=== PATIENT | female | born 1945 | race Caucasian/White ===

== ENCOUNTER 2019-09-02 10:44 | Inpatient (IN) ==
[2019-09-02] MEDS ORDERED: SODIUM CHLORIDE 0.9% 500 ML IV SCH (11:15)
[2019-09-02 11:50] LABS: Basophils # (auto) 0.01 K/uL (0-0.2); Basophils % (auto) 0.2 %; Eosinophils # (auto) 0.04 K/uL (0-0.5); Eosinophils % (auto) 0.7 %; Hematocrit (blood only) 38.5 % (37-47); Immature Granulocytes # (auto) 0.04 K/uL (0.00-0.02); Immature Granulocytes % (auto) 0.7 %; Lymphocytes # (auto) 0.49 K/uL (1.2-3.4); Lymphocytes % (auto) 8.8 %; Mean Corpuscular Hemoglobin 32.3 pg (25-34); Mean Corpuscular Hgb Conc 36.4 g/dL (32-36); Mean Corpuscular Volume 88.7 fL (80-100); Mean Platelet Volume 8.5 fL (7.4-10.4); Monocytes # (auto) 0.73 K/uL (0.11-0.59); Monocytes % (auto) 13.1 %; Neutrophils # (auto) 4.28 K/uL (1.4-6.5); Neutrophils % (auto) 76.5 %; Platelet Count 192 K/uL (130-400); RDW Coefficient of Variation 13.5 % (11.5-14.5); RDW Standard Deviation 44.2 fL (36.4-46.3); Red Blood Count 4.34 M/uL (4.2-5.4); White Blood Count 5.59 K/uL (4.8-10.8)
[2019-09-02 12:07] LABS: BUN Creatinine Ratio 11.9 (10-20); Calcium 9.3 mg/dl (8.5-10.1); Creatinine Clr Calc Pharmacy 36.6 ml/min; Est GFR (African American) 58.1; Est GFR (Non-African American) 50.1; Magnesium 2.1 mg/dl (1.8-2.4); Potassium 3.8 mmol/L (3.5-5.1)
[2019-09-02] MEDS: SODIUM CHLORIDE 0.9% 1000ML 1,000 ML IV SCH ×2 (12:12→20:03)
[2019-09-02 12:18] LABS: Albumin Globulin Ratio 0.7 (0.9-2); Bilirubin,Total 0.6 mg/dl (0.2-1); Globulin 4.1 gm/dl (2.5-4.0); Thyroid Stimulating Hormone 2.5 uIu/ml (0.300-4.500); Total Protein 7.1 gm/dl (6.4-8.2)
--- NOTE | 2019-09-02 14:42 | Emergency Department Note ---
Entered by Kadie Barrera acting as a scribe for History of Present Illness General Chief complaint: Nausea Stated complaint: DIZZY,NAUSEA Source: patient History of Present Illness Onset (ago): day(s) 3 Location: abdomen Pain Consistency: + other (persistent) Maximum Pain Intensity: 0 Quality: + other (nausea) Relieved By: + medication (chemotherapy medications) Associated symptoms: + denies other symptoms (vomiting, diarrhea, loss of appetite or fluid intake) and + other (weakness, dizziness, constipation) The patient is a 74 year old female that is presenting to the Emergency Room with complaints of persistent nausea that has worsened over the past three days. The patient reports that she is being treated for thyroid cancer that has metastasized to her liver, lungs, throat, and spine. She states that she started two new chemotherapy medications 1 month ago by her oncologist in [place]. She notes that she takes 6 pills of the Braftovi at night and states that she become s very nauseous after taking them. She notes that the Mektovi does not appear to affect her. She reports that she has been sitting on the couch for the past three days secondary to her nausea, weakness and dizziness. She denies any nausea currently but notes that she was very nauseous this morning. The patient notes that she is eating normally. She denies any vomiting or diarrhea. She states that she is constipated and notes that she believes it is secondary to the Zofran she was prescribed for her nausea. She notes that she has been taking 2 doses of Zofran a day. She states that her last bowel movement was this morning but notes that it was very small. She reports that her last bowel movem ent prior to today was 6 days ago. The patient notes that she had her levothyroxine reduced from 100mcg to 50 mcg in March secondary to elevated blood pressures. She states that her heart rate has been elevated above 100bpm since that time. She reports that her last EKG was 1 month ago prior to starting her new chemotherapy medications as the medications can have cardiac side effects. 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 The patient denies taking any pain medications except for liquid Tylenol. She reports that she is unable to swallow pills secondary to a past tracheotomy. She notes that she was referred to the ED today by her PCP, Dr. Melendez. Home Medications Home Medications Medication Instructions Recorded Confirmed Type aspirin [Aspir-81] 81 mg PO DAILY 09/02/19 09/02/19 History atorvastatin 10 mg PO HS 09/02/19 09/02/19 History binimetinib [Mektovi] 45 mg PO BIDM 09/02/19 09/02/19 History encorafenib [Braftovi] 450 mg PO HS 09/02/19 09/02/19 History levothyroxine 50 mcg PO DAILY 09/02/19 09/02/19 History multivitamin 1 tab PO DAILY 09/02/19 09/02/19 History ondansetron 4 mg PO Q6 PRN 09/02/19 09/02/19 History Allergies Allergy/AdvReac Type Severity Reaction Status Date / Time penicillin G Allergy Unknown . 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 Status post right neck compartment dissection 12/23/2015 revealing recurrent papillary carcinoma of the thyroid 0 of 7 nodes positive Status post radiation therapy treatments stopped on 03/04/2016 with one remaining fraction, received 6400 cGy combined with chemotherapy." On 01/05/16 10:43 Teresa Meier wrote "Thyroid carcinoma in 1991 Status post thyroidectomy followed by radioactive iodine Development of a left neck mass October 2014 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 Status post left neck dissection 12/31/2014 4 of 26 nodes positive 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 Status post right neck compartment dissection 12/23/2015 revealing recurrent papillary carcinoma of the thyroid 0 of 7 nodes positive " Tracheostomy complication (Acute) Family History Other Family history non-contributory Social History Preferred Language: Lao Communication Ability: Effective Identification Technician Required: No Beliefs That Will Affect Care: None marital status: Current Living Situation: Spouse current occupational status: retired Other Information That Helps Us Care for You: No Feels Safe at Home: Yes Safety Concerns: Feels Safe At This Time Smoking Status: Never smoker Hx Alcohol Use: No Hx Substance Use: No Review of Systems See HPI for pertinent positives & negatives. and A total of 10 systems reviewed and were otherwise negative Physical Exam Vital Signs Vital Signs - 24 hr 09/02/19 10:48 09/02/19 11:29 09/02/19 11:31 Temperature 36.8 C Temperature Source Oral Pulse Rate - Lying 99 H Pulse Rate - Sitting 100 H Pulse Rate - Standing 109 H Pulse Rate 108 H 109 H Pulse Rate from SpO2 Sensor 102 H Respiratory Rate 17 22 Respiratory Effort / Characteristics Non-Labored Respiratory Depth Normal Blood Pressure - Lying 130/71 Blood Pressure - Sitting 110/65 Blood Pressure- Standing 119/77 Blood Pressure 118/70 119/77 Blood Pressure Mean 86 86 Blood Pressure Position Sitting Pulse Oximetry 95 98 Oxygen Delivery Method Room Air Sepsis Recent Fever Within 48 Hours No Sepsis New/Unexplained Change in Mental Status No Sepsis Action Taken by Nursing No Action Required 09/02/19 12:00 09/02/19 12:30 09/02/19 13:00 Temperature Temperature Source Pulse Rate - Lying Pulse Rate - Sitting Pulse Rate - Standing Pulse Rate 98 H 93 H 100 H Pulse Rate from SpO2 Sensor 95 H 93 H 100 H Respiratory Rate 22 23 16 Respiratory Effort / Characteristics Respiratory Depth Blood Pressure - Lying Blood Pressure - Sitting Blood Pressure- Standing Blood Pressure 108/56 L 114/63 109/75 Blood Pressure Mean 84 82 85 Blood Pressure Position Pulse Oximetry 98 97 98 Oxygen Delivery Method Sepsis Recent Fever Within 48 Hours Sepsis New/Unexplained Change in Mental Status Sepsis Action Taken by Nursing 09/02/19 13:30 09/02/19 14:00 Temperature Temperature Source Pulse Rate - Lying Pulse Rate - Sitting Pulse Rate - Standing Pulse Rate 95 H 92 H Pulse Rate from SpO2 Sensor 93 H 93 H Respiratory Rate 24 21 Respiratory Effort / Characteristics Respiratory Depth Blood Pressure - Lying Blood Pressure - Sitting Blood Pressure- Standing Blood Pressure 124/65 Blood Pressure Mean 82 Blood Pressure Position Pulse Oximetry 97 97 Oxygen Delivery Method Sepsis Recent Fever Within 48 Hours Sepsis New/Unexplained Change in Mental Status Sepsis Action Taken by Nursing Vital signs reviewed. General: Chronically ill-appearing female, in no significant distress. HEENT: No scleral icterus, PERRLA, neck supple. Atraumatic. DMM. Cardiovascular: Slightly tachycardic rate and regular rhythm, no extra sounds. Pulmonary: Clear to auscultation bilaterally, normal work of breathing. Abdomen: Soft, nontender, nondistended, positive bowel sounds. Musculoskeletal: Atraumatic, no peripheral edema. Neurologic: Patient awake alert and oriented x 3, full strength in all 4 extremities. Cranial nerves 2 through 12 grossly intact. Skin: Warm, dry, no rash Course Course 1104:The patient was evaluated in room C09. A complete history and physical examination was performed. 1400: Upon reevaluation, the patient is resting comfortably. I discussed laboratory and radiographic results with the patient. She verbalized agreement of the treatment plan. The patient will be evaluated for further management and care. 1421: I discussed the patient's case with Dr. Mason, [facility], who will evaluate the patient for further management and care. Administered Medications Aspirin (Ecotrin Ectab) 81 mg PO DAILY BALTAZAR Stop: 10/03/19 08:59 Last Admin: 09/03/19 09:03 Dose: 81 mg Documented by: [id number] Atorvastatin Calcium (Lipitor) 10 mg PO HS BALTAZAR Stop: 10/02/19 20:59 Last Admin: 09/02/19 22:01 Dose: 10 mg Documented by: [id number] Enoxaparin Sodium (Lovenox) 40 mg SQ Q24H BALTAZAR Stop: 10/02/19 20:59 Last Admin: 09/02/19 21:57 Dose: 40 mg Documented by: [id number] Sodium Chloride (Nss 1000ml) 1,000 mls @ 80 mls/hr IV .[id number] BALTAZAR Stop: 10/02/19 19:14 Last Admin: 09/03/19 09:02 Dose: 80 mls/hr Documented by: [id number] Infusion: 09/03/19 08:33 Dose: 80 mls/hr Documented by: [id number] Admin: 09/02/19 20:03 Dose: 80 mls/hr Documented by: [id number] Famotidine 20 mg/ Syringe 5 mls @ 2.5 mls/min IV BID BALTAZAR Stop: 10/02/19 20:59 Last Admin: 09/03/19 09:02 Dose: 2.5 mls/min Documented by: [id number] Admin: 09/02/19 21:26 Dose: 2.5 mls/min Documented by: [id number] Levothyroxine Sodium (Synthroid) 50 mcg PO DAILY BALTAZAR Stop: 10/03/19 08:59 Last Admin: 09/03/19 09:03 Dose: 50 mcg Documented by: [id number] Multivitamins (Multivitamin Tab) 1 tab PO DAILY BALTAZAR Stop: 10/03/19 08:59 Last Admin: 09/03/19 09:03 Dose: 1 tab Documented by: [id number] Discontinued Medications Sodium Chloride (Nss 1000ml) 1,000 mls @ 125 mls/hr IV .Q8H BALTAZAR Stop: 10/02/19 11:14 Last Admin: 09/03/19 09:17 Dose: Not Given Documented by: [id number] Infusion: 09/03/19 09:17 Dose: 0 mls/hr Documented by: [id number] Infusion: 09/02/19 16:29 Dose: 0 mls/hr Documented by: [id number] Admin: 09/02/19 12:12 Dose: 125 mls/hr Documented by: [id number] Sodium Chloride (Nss) 500 mls @ 999 mls/hr IV .Q31M BALTAZAR Stop: 09/02/19 11:45 Last Infusion: 09/02/19 12:12 Dose: 0 mls/hr Documented by: [id number] Admin: 09/02/19 11:44 Dose: 999 mls/hr Documented by: [id number] Menthol (Nice) 1 lali BUCCAL NOW STA Stop: 09/02/19 22:59 Last Admin: 09/02/19 23:48 Dose: 1 lali Documented by: [id number] Menthol (Nice) Confirm Administered Dose 24 lali BUCCAL .STK-MED ONE Stop: 09/02/19 23:01 Last Admin: 09/02/19 23:48 Dose: 24 lali Documented by: [id number] Trimethoprim/Sulfamethoxazole (Septra Ds 800/160mg Tab) 1 tab PO Q12 BALTAZAR Stop: 09/08/19 08:59 Last Admin: 09/03/19 09:02 Dose: 1 tab Documented by: [id number] Medical Decision Making Differential Diagnosis Differential Diagnosis includes but is not limited to dehydration, stroke, anemia, hypoglycemia, hyponatremia, hypernatremia, urinary tract infection, pneumonia, bronchitis, sepsis, gastroenteritis, additional abdominal pathology, metabolic abnormalities and infections. Medical Records Attestation: I reviewed the patient's medical records. Home Medications Current Medication List: was personally reviewed by me Laboratory Data Attestation: I reviewed the patient's lab results. Result diagrams: 09/03/19 07:35 09/03/19 07:35 Lab Results 09/02/19 09/02/19 09/02/19 Range/Units 11:38 11:38 13:42 WBC 5.59 (4.8-10.8) K/uL RBC 4.34 (4.2-5.4) M/uL Hgb 14.0 (12.0-16.0) g/dL Hct 38.5 (37-47) % MCV 88.7 (80-100) fL MCH 32.3 (25-34) pg MCHC 36.4 H (32-36) g/dL RDW Std Deviation 44.2 (36.4-46.3) fL RDW Coeff of Jeison 13.5 (11.5-14.5) % Plt Count 192 (130-400) K/uL MPV 8.5 (7.4-10.4) fL Immature Gran % (Auto) 0.7 % Neut % (Auto) 76.5 % Lymph % (Auto) 8.8 % [place] % (Auto) 13.1 % Eos % (Auto) 0.7 % Baso % (Auto) 0.2 % Immature Gran # (Auto) 0.04 H (0.00-0.02) K/uL Neut # (Auto) 4.28 (1.4-6.5) K/uL Lymph # (Auto) 0.49 L (1.2-3.4) K/uL [place] # (Auto) 0.73 H (0.11-0.59) K/uL Eos # (Auto) 0.04 (0-0.5) K/uL Baso # (Auto) 0.01 (0-0.2) K/uL Sodium 125 L (136-145) mmol/L Potassium 3.8 (3.5-5.1) mmol/L Chloride 88 L (98-107) mmol/L Carbon Dioxide 32 (21-32) mmol/L Anion Gap 5.0 (3-11) BUN 13 (7-18) mg/dl Creatinine 1.10 (0.6-1.2) mg/dl Est Cr Clr Drug Dosing 36.6 ml/min Est GFR ( Amer) 58.1 Est GFR (Non-Af Amer) 50.1 BUN/Creatinine Ratio 11.9 (10-20) Glucose 99 (70-99) mg/dl Calcium 9.3 (8.5-10.1) mg/dl Magnesium 2.1 (1.8-2.4) mg/dl Total Bilirubin 0.6 (0.2-1) mg/dl AST 36 (15-37) U/L ALT 23 (12-78) U/L Alkaline Phosphatase 76 (45-117) U/L Total Protein 7.1 (6.4-8.2) gm/dl Albumin 3.0 L (3.4-5.0) gm/dl Globulin 4.1 H (2.5-4.0) gm/dl Albumin/Globulin Ratio 0.7 L (0.9-2) Lipase 149 (73-393) U/L TSH 2.500 (0.300-4.500) uIu/ml Urine Color Yellow Urine Appearance Clear (Clear) Urine pH 7.5 (4.5-7.5) Ur Specific [place] 1.011 (1.000-1.030) Urine Protein Negative (Negative) Urine Glucose (UA) Negative (Negative) Urine Ketones Negative (Negative) Urine Blood Negative (Negative) Urine Nitrite Negative (Negative) Urine Bilirubin Negative (Negative) Urine Urobilinogen Negative (Negative) Ur Leukocyte Esterase Trace H (Negative) Urine WBC (Auto) 1-5 (0-5) /hpf Urine RBC (Auto) 0-4 (0-4) /hpf U Hyaline Cast (Auto) 0 (0-5) /lpf U Epithel Cells (Auto) 10-20 H (0-5) /lpf Urine Bacteria (Auto) Negative (Negative) Blood Pressure Blood Pressure Findings: Normal blood pressure MDM Narrative This patient was evaluated and appeared to be in no significant distress. IV a ccess was obtained and laboratory work was drawn. Patient was hydrated with normal saline solution. She is placed on the hypoid gear generator and found to be in a normal sinus rhythm. Patient was found to be hyponatremic with a sodium of 125. TSH is 2.5. UA is negative. Patient's previous sodium levels have been greater than 135 per outpatient medical records. Given the patient's metastatic cancer and need for oral chemotherapy, it is felt to be prudent to keep the patient for IV hydration and further management. Case was discussed with the hospitalist service for further management. Patient is expressed understanding and agrees. Impression & Plan Hyponatremia, Nausea, Primary cancer of thyroid with metastasis to other site Discharge Plan Visit Data *Final* Discharge Date/Time: 09/02/19 18:47 Chief Complaint: Nausea Stated Complaint: DIZZY,NAUSEA ED Provider: Arcelia Guadalupe Discharge Problem: Hyponatremia, Nausea, Primary cancer of thyroid with metastasis to other site Patient Disposition: Admitted As Inpatient Discharge Instructions Interventions: ED Discharge Assessment Last Done: 09/02/19 18:47 The scribe's documentation has been prepared under my direction and personally reviewed by me in its entirety. I confirm that the note above accurately reflects all work, treatment, procedures, and medical decision making performed by me.
[2019-09-02 15:18] LABS: Appearance Urine Clear (Clear); Bacteria Urine Automated Negative (Negative); Bilirubin Urine Negative (Negative); Blood Urine Negative (Negative); Cast Urine Automated 0 /lpf (0-5); Color Urine Yellow; Glucose Urine UA Negative (Negative); Ketones Urine Negative (Negative); Leukocyte Esterase Urine Trace (Negative); Nitrite Urine Negative (Negative); Protein Urine Negative (Negative); RBC Urine Automated 0-4 /hpf (0-4); Specific Gravity Urine 1.011 (1.000-1.030); Urobilinogen Urine Negative (Negative); pH Urine 7.5 (4.5-7.5)
--- NOTE | 2019-09-02 17:27 | History & Physical Report ---
Date of Service September 02, 2019 Assessment & Plan (1) Hyponatremia: Admits to [facility] for observation. Vital signs every 4 hours Monitor electrolytes IV fluid hydration with NSS 80 cc/h Free fluid restriction to 1200 cc/day Compazine, Phenergan, Zofran IV for nausea. If no improvement contact Dr. Abreu at Present on Admission?: Yes (2) Nausea: As the above is going on Present on Admission?: Yes (3) Primary cancer of thyroid with metastasis to other site: Continue home medicine Binimetinib, encorafenib Present on Admission?: Yes History of Present Illness Chief Complaint: nausea and hyponatremia Primary Care Provider: Janes Melendez MD Patient is a 74 years old female with past medical history of metastatic recurrent anaplastic thyroid cancer, on chemotherapy who who presented with severe nausea. Patient said her symptoms are ongoing since she started chemotherapy in July. Despite of being on Zofran she is not improving. Patient says she has cancer since 1991 and she was in remission for a long. In 2005 patient said tumor came back with a full force. She has her physical medicine specialist oncologist Dr. Oro Her silvia at [facility]. Patient denies of fever, chills, chest pain, shortness of breath, abdominal pain, frequency, urgency. Her labs are reviewed: WBC is 5.59, hemoglobin 14, hematocrit 38.5, platelets 192, sodium 125, potassium 3.8, chloride 88, BUN 13, creatinine 1.1 and GFR 50.1, magnesium 2.1, albumin 3, TSH 2.5 urine all clear with trace leukocyte esterase and presence of 10-20 epithelial cells which was not a clean- catch. CT abdomen and pelvis pending. Decision was made to admit patient for observation at [facility]. Allergies Allergy/AdvReac Type Severity Reaction Status Date / Time penicillin G Allergy Unknown . Verified 09/02/19 11:58 Home Medications Home Medications Medication Instructions Recorded Confirmed Type aspirin [Aspir-81] 81 mg PO DAILY 09/02/19 09/02/19 History atorvastatin 10 mg PO HS 09/02/19 09/02/19 History binimetinib [Mektovi] 45 mg PO BIDM 09/02/19 09/02/19 History encorafenib [Braftovi] 450 mg PO HS 09/02/19 09/02/19 History levothyroxine 50 mcg PO DAILY 09/02/19 09/02/19 History multivitamin 1 tab PO DAILY 09/02/19 09/02/19 History ondansetron 4 mg PO Q6 PRN 09/02/19 09/02/19 History Past Med/Surg History Medical History Anaplastic carcinoma of thyroid Encounter for attention to tracheostomy (Acute) Pulmonary emboli (Resolved) Recurrent thyroid cancer (Acute) "Thyroid carcinoma in 1991 Status post thyroidectomy followed by radioactive iodine Development of a left neck mass October 2014 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 Status post left neck dissection 12/31/2014 4 of 26 nodes positive 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 Status post right neck compartment dissection 12/23/2015 revealing recurrent papillary carcinoma of the thyroid 0 of 7 nodes positive Status post radiation therapy treatments stopped on 03/04/2016 with one remaining fraction, received 6400 cGy combined with chemotherapy." On 01/05/16 10:43 Teresa Meier wrote "Thyroid carcinoma in 1991 Status post thyroidectomy followed by radioactive iodine Development of a left neck mass October 2014 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 Status post left neck dissection 12/31/2014 4 of 26 nodes positive 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 Status post right neck compartment dissection 12/23/2015 revealing recurrent papillary carcinoma of the thyroid 0 of 7 nodes positive " Tracheostomy complication (Acute) Family History Other Family history non-contributory Social History Preferred Language: Turkmen Communication Ability: Effective 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 Beliefs That Will Affect Care: None marital status: Current Living Situation: Spouse current occupational status: retired Other Information That Helps Us Care for You: No Feels Safe at Home: Yes Safety Concerns: Feels Safe At This Time Smoking Status: Never smoker Hx Alcohol Use: No Hx Substance Use: No Review of Systems Review of Systems: All systems reviewed & are unremarkable except as noted in HPI & below Physical Exam Constitutional: WD/WN, vitals as above well developed Eyes: PERRL, conjunctivae normal, anicteric sclerae ENMT: external ear and nose normal, oropharynx normal Neck: trachea midline, no thyromegaly Respiratory: normal respiratory effort, lungs clear to auscultation Cardiovascular: RRR, no murmur, no edema Gastrointestinal (Abdomen): normal bowel sounds, soft, nontender, no hepatosplenomegaly Musculoskeletal: no cyanosis or clubbing, extremities motor strength 5/5 Skin: no rashes, warm and dry Neurologic: patellar DTR's 2+ bilat, sensation intact Psychiatric: A+Ox3, euthymic affect Lymphatic: no cervical or axillary lymphadenopathy Results & Data Vital Signs (Past 12 Hours) Vital Signs Temp Pulse Resp BP Pulse Ox 09/02/19 17:18 97 H 18 121/72 97 09/02/19 16:30 95 H 24 96 09/02/19 15:17 91 H 24 120/71 97 09/02/19 15:00 92 H 24 120/71 95 09/02/19 14:30 98 H 21 98 09/02/19 14:00 92 H 21 97 09/02/19 13:30 95 H 24 124/65 97 09/02/19 13:00 100 H 16 109/75 98 09/02/19 12:30 93 H 23 114/63 97 09/02/19 12:00 98 H 22 108/56 L 98 09/02/19 11:31 109 H 22 119/77 98 09/02/19 10:48 36.8 C 108 H 17 118/70 95 Code Status & VTE Plan Code Status Full code VTE Prophylaxis Plan VTE Prophylaxis will be ordered: Yes PG Care Time/CCT Total # of Minutes Spent Total Time Spent with Patient: Total time spent is greater than 50% in coordination of care (as documented) at patient's floor/unit and/or counseling patient:
[2019-09-02] MEDS ORDERED: ACETAMINOPHEN 325 MG TAB PO PRN (19:15)
[2019-09-02] MEDS ORDERED: ALUMINUM/MAGNESIUM SUSP 30 ML UDC PO PRN (19:15)
[2019-09-02] MEDS ORDERED: MoRPHine SULFATE 2 MG/ML CARP IV PRN (19:15)
[2019-09-02] MEDS ORDERED: MAGNESIUM HYDROXIDE SUSP 30 ML UDC PO PRN (19:15)
[2019-09-02] MEDS ORDERED: POLYETHYLENE (MIRALAX) 17 GM PACK PO PRN (19:15)
[2019-09-02] MEDS ORDERED: PROCHLORPERAZINE 10 MG in SYRINGE 8 ML IV PRN (19:15)
[2019-09-02] MEDS ORDERED: PROMETHAZINE HCL 25 MG in SODIUM CHLORIDE 0.9% 50 ML IV PRN (19:15)
[2019-09-02] MEDS ORDERED: ONDANSETRON 4 MG OD TAB PO PRN (19:41)
[2019-09-02] MEDS ORDERED: ENCORAFENIB 450 MG PO SCH (21:00)
[2019-09-02] MEDS: FAMOTIDINE 20 MG in SYRINGE 3 ML IV SCH (21:26)
[2019-09-02] MEDS: ENOXAPARIN INJ 40 MG/0.4 ML SYR SQ SCH (21:57)
[2019-09-02] MEDS: ATORVASTATIN 10 MG TAB PO SCH (22:01)
[2019-09-02] MEDS ORDERED: COUGH DROP (SUGAR FREE) LOZ 24 LOZ/1 BOX BUCCAL STA (22:58)
[2019-09-02] MEDS ORDERED: COUGH DROP (SUGAR FREE) LOZ 24 LOZ/1 BOX BUCCAL ONE (23:00)
--- NOTE | 2019-09-03 07:14 | CT Scan Report ---
CT abd pelvis wo con CLINICAL HISTORY: 74 years-old Female presenting with nausea, abdominal pain, dry heaving. TECHNIQUE: Multidetector CT of the abdomen and pelvis was performed without the use of intravenous co ntrast. IV contrast: None. One or more dose lowering techniques were used consistent with the princip les of ALA (as low as reasonably achievable), including automatic exposure control, mA or kV adjust ment to individual patient size, and/or use of iterative reconstruction. COMPARISON: PET/CT from 02/08/2016. CT DOSE (mGy.cm): The estimated cumulative dose is 275.53 mGy.cm. FINDINGS: [place] Compounder topogram: Unremarkable. Lung bases: Normal heart size. No pericardial or pleural effusion. Minimal dependent changes likely a telectasis. Liver: Normal morphology. Borderline hepatic steatosis. Biliary: No gross biliary ductal dilatation allowing for noncontrast technique. Gallbladder contains gallstones. Pancreas: Normal noncontrast appearance. Spleen: Normal noncontrast appearance. Splenule noted. Adrenal glands: Normal noncontrast appearance. Kidneys and ureters: Normal noncontrast appearance. No nephrolithiasis. No hydronephrosis. Normal ure ters. Bladder: Normal noncontrast appearance. Pelvic organs: Normal noncontrast appearance. Bowel: Limited diverticulosis at the proximal sigmoid colon without wall thickening or pericolonic in flammatory change. The appendix is normal. No bowel obstruction. Peritoneal cavity: No free fluid or intraperitoneal gas. Lymph nodes: No gross lymphadenopathy allowing for noncontrast technique. Vasculature: Atherosclerosis of the normal caliber abdominal aorta. Abdominal wall: Foci of gas in the subcutaneous tissue of the anterior abdominal wall likely relates to medication administration. Musculoskeletal: Degenerative changes of the left hip and lumbar spine. IMPRESSION: 1. Allowing for noncontrast technique, no acute intra-abdominal pathology. 2. Cholelithiasis. No evidence of cholecystitis. 3. Limited diverticulosis coli. No evidence of diverticulitis. 4. Borderline hepatic steatosis. Electronically signed by: Barrett Hess M.D. 09/03/2019 7:13 AM
[2019-09-03] MEDS ORDERED: BINIMETINIB 45 MG PO SCH (08:00)
[2019-09-03 08:04] LABS: Basophils # (auto) 0.04 K/uL (0-0.2); Basophils % (auto) 1.6 %; Eosinophils # (auto) 0.02 K/uL (0-0.5); Eosinophils % (auto) 0.8 %; Hematocrit (blood only) 32.4 % (37-47); Hemoglobin 11.6 g/dL (12.0-16.0); Immature Granulocytes # (auto) 0.01 K/uL (0.00-0.02); Immature Granulocytes % (auto) 0.4 %; Lymphocytes # (auto) 0.67 K/uL (1.2-3.4); Lymphocytes % (auto) 27.1 %; Mean Corpuscular Hgb Conc 35.8 g/dL (32-36); Mean Corpuscular Volume 89.5 fL (80-100); Mean Platelet Volume 8.4 fL (7.4-10.4); Monocytes # (auto) 0.32 K/uL (0.11-0.59); Neutrophils # (auto) 1.41 K/uL (1.4-6.5); Neutrophils % (auto) 57.1 %; Platelet Count 172 K/uL (130-400); RDW Coefficient of Variation 13.5 % (11.5-14.5); RDW Standard Deviation 44.5 fL (36.4-46.3); Red Blood Count 3.62 M/uL (4.2-5.4); White Blood Count 2.47 K/uL (4.8-10.8)
[2019-09-03 08:44] LABS: Albumin Level 2.3 gm/dl (3.4-5.0); Calcium 8.2 mg/dl (8.5-10.1); Creatinine Clr Calc Pharmacy 43.2 ml/min; Est GFR (African American) 71.2; Est GFR (Non-African American) 61.4; Potassium 3.9 mmol/L (3.5-5.1)
[2019-09-03 08:49] LABS: Albumin Globulin Ratio 0.7 (0.9-2); Bilirubin,Total 0.4 mg/dl (0.2-1); Globulin 3.1 gm/dl (2.5-4.0); Total Protein 5.4 gm/dl (6.4-8.2)
[2019-09-03] MEDS ORDERED: SULFAMETHOXAZOLE/TRIMETHOPRIM DS 800/160MG TAB PO SCH (09:00)
[2019-09-03] MEDS: SODIUM CHLORIDE 0.9% 1000ML 1,000 ML IV SCH ×3 (09:02→20:43)
[2019-09-03] MEDS: FAMOTIDINE 20 MG in SYRINGE 3 ML IV SCH ×2 (09:02→20:41)
[2019-09-03] MEDS: LEVOTHYROXINE SODIUM 50 MCG TABLET PO SCH (09:03)
[2019-09-03] MEDS: MULTIVITAMIN TAB PO SCH (09:03)
[2019-09-03] MEDS: ASPIRIN 81 MG ECTAB PO SCH (09:03)
--- NOTE | 2019-09-03 12:52 | Hospitalist Progress Note ---
Date of Service September 03, 2019 Assessment & Plan (1) Hyponatremia: Asymptomatic and improving Repeat bmp am Continue IV fluid hydration with NSS 80 cc/h Continue Free fluid restriction to 1200 cc/day Nausea under better control Compazine, Phenergan, Zofran IV for nausea. Patient sees Dr. 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 Wood's nausea is much improved today. She continues to have some constipation which is felt to be a side effect of the Zofran. She has been quite nauseas since starting a new chemotherapy regimen. ROS Constitutional: no chills, aches, sweats or fever Respiratory: no sob,cough, sputum, or wheezing Cardiac: no chest pain, palpitations, edema, orthopnea or lightheadedness GI: no abdominal pain, nausea, vomiting, diarrhea : no dysuria or hesitancy Extremities: no joint pain or weakness Skin: no rash All other systems reviewed and negative Physical Exam Physical Exam: General: no distress Eyes: normal inspection, PERLL Respiratory: chest non tender, clear to auscultation, normal breath sounds, no respiratory distress, no accessory muscle use Cardiac: regular rate and rhythm, no rub or gallop, no murmur, no edema, no jvd GI/: active bowel sounds, no abd pain or tenderness, soft, non distended Extremities: normal range of motion, normal strength, non tender Neuro/Psych: alert and oriented x 3, normal mood and affect Skin: normal color, dry Results & Data Vital Signs (Past 12 Hours) Vital Signs Temp Pulse Resp BP Pulse Ox 09/03/19 07:27 37.4 C 86 18 126/72 95 PG Care Time/CCT Total # of Minutes Spent Total Time Spent with Patient: Total time spent is greater than 50% in coordination of care (as documented) at patient's floor/unit and/or counseling patient:
[2019-09-03] MEDS: ENOXAPARIN INJ 40 MG/0.4 ML SYR SQ SCH (20:42)
[2019-09-03] MEDS: ATORVASTATIN 10 MG TAB PO SCH (20:42)
[2019-09-04 06:14] LABS: Basophils # (auto) 0.06 K/uL (0-0.2); Basophils % (auto) 1.7 %; Eosinophils # (auto) 0.07 K/uL (0-0.5); Hematocrit (blood only) 32.8 % (37-47); Hemoglobin 11.6 g/dL (12.0-16.0); Immature Granulocytes # (auto) 0.01 K/uL (0.00-0.02); Immature Granulocytes % (auto) 0.3 %; Lymphocytes # (auto) 1.29 K/uL (1.2-3.4); Lymphocytes % (auto) 36.1 %; Mean Corpuscular Hemoglobin 31.9 pg (25-34); Mean Corpuscular Hgb Conc 35.4 g/dL (32-36); Mean Corpuscular Volume 90.1 fL (80-100); Mean Platelet Volume 8.4 fL (7.4-10.4); Monocytes # (auto) 0.48 K/uL (0.11-0.59); Monocytes % (auto) 13.4 %; Neutrophils # (auto) 1.66 K/uL (1.4-6.5); Neutrophils % (auto) 46.5 %; Platelet Count 174 K/uL (130-400); RDW Coefficient of Variation 13.8 % (11.5-14.5); RDW Standard Deviation 45.9 fL (36.4-46.3); Red Blood Count 3.64 M/uL (4.2-5.4); White Blood Count 3.57 K/uL (4.8-10.8)
[2019-09-04 06:44] LABS: Albumin Level 2.4 gm/dl (3.4-5.0); BUN Creatinine Ratio 3.7 (10-20); Calcium 8.2 mg/dl (8.5-10.1); Creatinine Clr Calc Pharmacy 38.3 ml/min; Est GFR (African American) 61.4; Potassium 3.9 mmol/L (3.5-5.1)
[2019-09-04 06:48] LABS: Albumin Globulin Ratio 0.8 (0.9-2); Bilirubin,Total 0.4 mg/dl (0.2-1); Globulin 3.2 gm/dl (2.5-4.0); Total Protein 5.6 gm/dl (6.4-8.2)
[2019-09-04] MEDS: ASPIRIN 81 MG ECTAB PO SCH (08:21)
[2019-09-04] MEDS: LEVOTHYROXINE SODIUM 50 MCG TABLET PO SCH (08:22)
[2019-09-04] MEDS: MULTIVITAMIN TAB PO SCH (08:22)
[2019-09-04] MEDS ORDERED: Nursing to Pharmacy Communication ONE (08:26)
[2019-09-04] MEDS: SODIUM CHLORIDE 0.9% 1000ML 1,000 ML IV SCH (08:26)
[2019-09-04] MEDS: FAMOTIDINE 20 MG in SYRINGE 3 ML IV SCH (08:26)
[2019-09-04] MEDS ORDERED: DOCUSATE SODIUM/SENNA 50/8.6MG TAB PO SCH (09:00)
[2019-09-04] MEDS ORDERED: POLYETHYLENE (MIRALAX) 17 GM PACK PO STA (09:11)
--- NOTE | 2019-09-04 13:01 | Discharge Summary ---
Date of Service September 04, 2019 Admission HPI Per Admitting Provider Patient is a 74 years old female with past medical history of metastatic recurrent anaplastic thyroid cancer, on chemotherapy who who presented with severe nausea. Patient said her symptoms are ongoing since she started chemotherapy in July. Despite of being on Zofran she is not improving. Patient says she has cancer since 1991 and she was in remission for a long. In 2005 patient said tumor came back with a full force. She has her family medicine physician assistant oncologist Dr. Oro Her shock at [facility]. Patient denies of fever, chills, chest pain, shortness of breath, abdominal pain, frequency, urgency. Her labs are reviewed: WBC is 5.59, hemoglobin 14, hematocrit 38.5, platelets 192, sodium 125, potassium 3.8, chloride 88, BUN 13, creatinine 1.1 and GFR 50.1, magnesium 2.1, albumin 3, TSH 2.5 urine all clear with trace leukocyte esterase and presence of 10-20 epithelial cells which was not a clean- catch. CT abdomen and pelvis pending. Decision was made to admit patient for observation at [facility]. Principal Diagnosis Hyponatremia Discharge Exam Constitutional WD/WN, vitals as above Respiratory normal respiratory effort, lungs clear to auscultation Cardiovascular RRR, no murmur, no edema Gastrointestinal (Abdomen) Inspection/Auscultation: abdomen normal to inspection, + abdomen distended (mild) and normal bowel sounds Percussion/Palpation: + abdomen tender Musculoskeletal no cyanosis or clubbing, extremities motor strength 5/5 Skin no rashes, warm and dry Neurologic moves all extremities and awake Psychiatric A+Ox3, euthymic affect Discharge Data Allergies Allergy/AdvReac Type Severity Reaction Status Date / Time penicillin G Allergy Unknown . Verified 09/02/19 11:58 Consultations 09/02/19 14:21 ED Decision to Admit Stat Ordered Studies 09/02/19 21:13 CT abd pelvis wo con Urgent Hospital Course (1) Hyponatremia: Asymptomatic and improving - Na 132 Provided IV fluid hydration with NSS 80 cc/h Free fluid restriction 1200 cc/day while inpatient Nausea under better control Compazine, Phenergan, Zofran IV for nausea. Patient sees Dr. 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: Continue home medicine Binimetinib, encorafenib Has history of thyroidectomy - continue levothyroxine, TSH 2.5 (4) Constipation: PRN Miralax, bisacodyl suppository, daily senakot (5) DVT prophylaxis: Enoxaparin while inpatient Total Time Total Time Spent Total Time Spent (In Minutes): greater than 30 minutes Discharge Plan Discharge Items Patient Disposition: Home - Self-Care Reason For Visit: NAUSEA Discharge Diagnosis: Hyponatremia Activity: Resume your previous activity Non-emergency contact: Primary Care Provider Call non-emergency contact if: you have any medication questions Follow-up/Referrals: Janes Melendez MD [Primary Care Provider] - Diet: Regular Ambulatory Orders: Basic Metabolic Panel (Routine) Timeframe: [id number] Location: Determined by Patient Ordered By: Mandy Barros Attending Provider Instructions: Please see your primary care provider in about a week (1) Hyponatremia: Please have your lab work drawn on Monday. Your primary care provider will receive results. (2) Nausea: Continue Zofran and famotidine (Pepcid) as needed. 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 Pending Studies at Discharge: No Stand-Alone Forms: [facility] [employer], Smoking Cessation Medications and DC Order Prescriptions: New sennosides-docusate sodium [Senokot-S] 8.6-50 mg Tablet 1 tab PO QAM Qty: 30 RF: 0 Continued multivitamin Tablet 1 tab PO DAILY RF: 0 atorvastatin 10 mg tablet 10 mg PO HS RF: 0 aspirin [Aspir-81] 81 mg Tablet,Delayed Release (Dr/Ec) 81 mg PO DAILY RF: 0 levothyroxine 100 mcg tablet 50 mcg PO DAILY RF: 0 ondansetron 4 mg tablet,disintegrating 4 mg PO Q6 PRN (Reason: Nausea And Vomiting) RF: 0 Braftovi 75 mg capsule 450 mg PO HS RF: 0 Mektovi 15 mg tablet 45 mg PO BIDM RF: 0 Discharge Orders: Discharge Order (Routine); Ordered 09/04/19 Ordered By: Mandy Azul Admission Data Admit Date/Time: 09/02/19 17:26 Attending Provider: Billy Pelletier Admit Provider: Marlyn Mason Primary Care Provider: Janes Melendez Other Providers: Billy Pelletier ; [facility] Other Interventions: Discharge Summary Assessment (RN) Last Done: 09/04/19 12:40
[2019-09-05] MEDS ORDERED: LEVOTHYROXINE SODIUM 50 MCG TABLET PO SCH (06:30)
== END 2019-09-04 13:46 | disposition home health service (06) | DRG 641 ==
LOC: ED 10:44 → 4W 17:26 → SUATTDRO 17:26 → 4W 18:47
DX: T45.0X5A Adverse effect of antiallergic and antiemetic drugs, initial encounter; Z88.0 Allergy status to penicillin; Z79.899 Other long term (current) drug therapy; C78.7 Secondary malignant neoplasm of liver and intrahepatic bile duct; Z86.711 Personal history of pulmonary embolism; Z79.82 Long term (current) use of aspirin; C79.89 Secondary malignant neoplasm of other specified sites; R11.0 Nausea; Z79.890 Hormone replacement therapy; C78.00 Secondary malignant neoplasm of unspecified lung; E89.0 Postprocedural hypothyroidism; K59.00 Constipation, unspecified; E87.1 Hypo-osmolality and hyponatremia; C79.51 Secondary malignant neoplasm of bone

== ENCOUNTER 2020-06-02 08:58 | Inpatient (IN) ==
--- NOTE | 2020-06-02 09:45 | Emergency Department Note ---
Impression & Plan Breath shortness, Recurrent thyroid cancer, Swollen throat, Abnormal ECG, Elevated lactic acid level ED Provider Note NAME: HARJEET ALEJO AGE: 75 SEX: F : 1945 ARRIVES VIA: Walk-In INFORMANT: Patient ED PROVIDER(S): Yannick Brown DO CHIEF COMPLAINT: Shortness of breath HPI: Patient is a 75-year-old female that presents the ER for shortness of breath which has been getting worse over the past 3 days. She notes now she is significantly dyspneic with any kind of ambulation. She admits to a history of thyroid cancer with metastatic disease. She now has a right IJ clot and placed on NOAC. She denies any chest pain or belly pain. No nausea vomiting or diarrhea. No dysuria urgency or frequency. No other exacerbating or remitting factors. Last dose of chemotherapy was 2 weeks ago. ROS: See above HPI for pertinent positives & negatives. A total of 10 systems reviewed and were otherwise negative. PAST MEDICAL HISTORY:See Below PAST SURGICAL HISTORY:See Below FAMILY HISTORY:See Below SOCIAL HISTORY:See Below HOME MEDICATIONS:See Below ALLERGIES:See Below VITALS:See Below PHYSICAL EXAMINATION: GENERAL: Sitting up in bed, alert, ill-appearing, slightly dyspneic with conversation EYE EXAM: normal conjunctiva. OROPHARYNX: no exudate, no erythema, lips, buccal mucosa, and tongue normal and mucous membranes are moist NECK: supple, swelling of the right side of the neck and fullness on the the anterior aspect LUNGS: Diminished bilaterally. Normal chest wall mechanics HEART: Tachycardic, S1 normal and S2 normal ABDOMEN: abdomen soft, non-tender, normo-active bowel sounds, no masses, no rebound or guarding. BACK: Back is symmetrical on inspection and there is no deformity, no midline tenderness, no CVA tenderness. SKIN: no rashes and no bruising UPPER EXTREMITIES: upper extremities are grossly normal. LOWER EXTREMITIES: No pitting edema. NEURO EXAM: Normal sensorium, cranial nerves II-XII grossly intact, normal speech, no gross weakness of arms, no gross weakness of legs. MEDICAL DECISION MAKING: Patient is a 75-year-old female who presents the ER for shortness of breath and swelling in the neck. This has been getting worse for the past 2 to 3 days. Currently on Eliquis. Has not missed any doses. Brought in by . History of recurrent thyroid carcinoma being treated every 3 weeks with IV chemo. Last dose was 2 weeks ago. Follows with [facility]. Labs show leukocytosis of 12,000. Mild anemia 10.9. INR unremarkable. BMP with mild hyponatremia at 130. Chloride slightly low. Lactate was elevated at 2.5. LFTs bilirubin was unremarkable. TSH was low. UA without infection. COVID ordered per [facility] was negative. CT of the neck shows pha ryngeal edema CT of the chest and neck confirm cancerous mass right neck eroding into cervical spine as well as pulmonary nodule. CT N[place] of the chest shows no PEs. Family request to be transferred to [facility]. Patient was given 1 L IV fluid. Discussed with [facility]. Accepted the patient but will not have a bed for at least 24 hours. Recommended IV steroids as well. They believe this will help with the inflammation of the neck which is thought to be secondary to the radiation and cancer. Patient was covered with 1 dose of IV Rocephin. Although I doubt infectious etiology do favor that this is related to dehydration and swelling of the throat. EKG did show new T wave changes comparison to previous. She denied any chest pain. Troponin was negative. Discussed with the hospitalist and patient will be admitted to [facility] until accepted to [facility]. Triage Nursing notes reviewed. Prior medical records reviewed Vital Signs: reviewed and remarkable for tachycardic and tachypneic Differential diagnosis: Differential diagnoses includes but is not limited to pneumonia, bronchitis, COPD/Asthma exacerbation, pneumothorax, pulmonary embolism, congestive heart failure, acute coronary syndrome ER treatment provided: See below Diagnostics interpreted by me: ECG: Sinus tachycardia rate of 113 Normal axis T WI with ST depressions V1 through V3 Normal QTC T wave changes in V1 through V3 is new from previous EKG Cardiac Monitoring: An order was placed for continuous cardiac monitoring. The monitor shows a rate of 111 with sinus rhythm. Laboratory studies: As stated above and show below. Imaging studies: CT of the neck and chest as discussed in the HPI. Consultation(s): Discussed with [facility] Dr. Villegas who accepted the patient but patient will not be able to be transferred for [address] Taz Rodrigez for admission here not any. 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 Status post right neck compartment dissection 12/23/2015 revealing recurrent papillary carcinoma of the thyroid 0 of 7 nodes positive Status post radiation therapy treatments stopped on 03/04/2016 with one remaining fraction, received 6400 cGy combined with chemotherapy." On 01/05/16 10:43 Teresa Meier wrote "Thyroid carcinoma in 1991 Status post thyroidectomy followed by radioactive iodine Development of a left neck mass October 2014 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 Status post left neck dissection 12/31/2014 4 of 26 nodes positive 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 Status post right neck compartment dissection 12/23/2015 revealing recurrent papillary carcinoma of the thyroid 0 of 7 nodes positive " Tracheostomy complication Family History Other Family history non-contributory Social History Smoking Status: Never smoker Hx Alcohol Use: No Hx Substance Use: No Preferred Language: Chadian Communication Ability: Effective Mender Hand Required: No Beliefs That Will Affect Care: None marital status: Current Living Situation: Spouse current occupational status: retired Feels Safe at Home: Yes Allergies Allergies Allergy/AdvReac Type Severity Reaction Status Date / Time penicillin G Allergy Unknown . Verified 06/02/20 09:34 Home Meds Home Medications Medication Instructions Recorded Confirmed aspirin [Aspir-81] 81 mg PO [id number] 09/02/19 06/02/20 atorvastatin 10 mg PO HS 09/02/19 06/02/20 levothyroxine 100 mcg PO DAILY 09/02/19 06/02/20 multivitamin 1 tab PO DAILY 09/02/19 06/02/20 apixaban [Eliquis] 5 mg PO BID 06/02/20 06/02/20 dexamethasone 4 mg PO DAILY 06/02/20 06/02/20 fentanyl 50 mcg TRANSDERMAL .Q3DAYS 06/02/20 06/02/20 metoprolol succinate 25 mg PO DAILY 06/02/20 06/02/20 Results & Data (ED) Vital Signs Vital Signs - 24 hr 06/02/20 09:02 06/02/20 09:31 06/02/20 09:40 Temperature 37.0 C Temperature Source Oral Pulse Rate 130 H 106 H Pulse Rate from SpO2 Sensor Respiratory Rate 20 22 Respiratory Effort / Characteristics Non-Labored Spontaneous Respiratory Depth Normal Respiratory Pattern Regular Blood Pressure 139/80 Blood Pressure Mean 99 Pulse Oximetry 97 95 95 Oxygen Delivery Method Room Air Room Air Room Air Sepsis Recent Fever Within 48 Hours No Sepsis New/Unexplained Change in Mental Status N/A Sepsis Action Taken by Nursing No Action Required 06/02/20 10:28 06/02/20 10:41 06/02/20 11:16 Temperature Temperature Source Pulse Rate 94 H 101 H Pulse Rate from SpO2 Sensor Respiratory Rate 24 19 24 Respiratory Effort / Characteristics Non-Labored Spontaneous Respiratory Depth Respiratory Pattern Blood Pressure 152/86 H Blood Pressure Mean 116 Pulse Oximetry 95 96 95 Oxygen Delivery Method Room Air Room Air Sepsis Recent Fever Within 48 Hours Sepsis New/Unexplained Change in Mental Status Sepsis Action Taken by Nursing 06/02/20 11:21 06/02/20 12:38 06/02/20 13:01 Temperature Temperature Source Pulse Rate 94 H 99 H Pulse Rate from SpO2 Sensor 98 H Respiratory Rate 22 19 18 Respiratory Effort / Characteristics Non-Labored Spontaneous Respiratory Depth Respiratory Pattern Blood Pressure 139/82 Blood Pressure Mean 88 Pulse Oximetry 95 96 96 Oxygen Delivery Method Room Air Sepsis Recent Fever Within 48 Hours Sepsis New/Unexplained Change in Mental Status Sepsis Action Taken by Nursing 06/02/20 13:30 06/02/20 14:00 06/02/20 14:01 Temperature Temperature Source Pulse Rate 98 H 100 H 100 H Pulse Rate from SpO2 Sensor Respiratory Rate 18 26 H 27 H Respiratory Effort / Characteristics Respiratory Depth Respiratory Pattern Blood Pressure 153/88 H Blood Pressure Mean 101 Pulse Oximetry 95 Oxygen Delivery Method Sepsis Recent Fever Within 48 Hours Sepsis New/Unexplained Change in Mental Status Sepsis Action Taken by Nursing Laboratory Data Result diagrams: 06/02/20 09:44 06/02/20 09:44 Lab Results 06/02/20 06/02/20 06/02/20 Range/Units 09:44 09:44 09:44 WBC 12.75 H (4.8-10.8) K/uL RBC 3.90 L (4.2-5.4) M/uL Hgb 12.8 (12.0-16.0) g/dL POC Hgb (12.0-16.0) g/dl Hct 36.8 L (37-47) % POC Hct (37-47) % MCV 94.4 (80-100) fL MCH 32.8 (25-34) pg MCHC 34.8 (32-36) g/dL RDW Std Deviation 64.5 H (36.4-46.3) fL RDW Coeff of Jeison 18.6 H (11.5-14.5) % Plt Count 250 (130-400) K/uL MPV 7.8 (7.4-10.4) fL Immature Gran % (Auto) 4.2 % Neut % (Auto) 80.2 % Lymph % (Auto) 10.0 % Sutton % (Auto) 5.2 % Eos % (Auto) 0.2 % Baso % (Auto) 0.2 % Neut # (Auto) 10.23 H (1.4-6.5) K/uL Lymph # (Auto) 1.28 (1.2-3.4) K/uL Sutton # (Auto) 0.66 H (0.11-0.59) K/uL Eos # (Auto) 0.02 (0-0.5) K/uL Baso # (Auto) 0.02 (0-0.2) K/uL Immature Gran # (Auto) 0.54 H (0.00-0.02) K/uL PT 10.8 (9.0-12.0) Seconds INR 1.0 (0.9-1.1) APTT 27.0 (21.0-31.0) Seconds PTT Ratio 1.0 POC Sodium (135-144) mmol/L Sodium 130 L (136-145) mmol/L POC Potassium (3.3-5.0) mmol/L Potassium 3.7 (3.5-5.1) mmol/L POC Chloride (101-112) mmol/L Chloride 93 L (98-107) mmol/L Carbon Dioxide 28 (21-32) mmol/L POC Total CO2 (24-31) mmol/L Anion Gap 9.0 (3-11) POC Anion Gap (16-25) mmol/L POC BUN (7-18) mg/dl BUN 13 (7-18) mg/dl Creatinine 0.61 (0.6-1.2) mg/dl POC Creatinine (0.6-1.3) mg/dl Est Cr Clr Drug Dosing 65.0 ml/min Est GFR ( Amer) 104.2 Est GFR (Non-Af Amer) 89.9 BUN/Creatinine Ratio 21.0 H (10-20) Glucose 128 H (70-99) mg/dl POC Glucose (other) (70-99) mg/dl Lactate (0.4-2.0) mmol/L Calcium 8.6 (8.5-10.1) mg/dl POC Ioniz Calcium Zoe (1.12-1.32) mmol/l Magnesium 1.7 L (1.8-2.4) mg/dl Total Bilirubin 1.0 (0.2-1) mg/dl AST 19 (15-37) U/L ALT 38 (12-78) U/L Alkaline Phosphatase 66 (45-117) U/L Troponin I (0-0.045) ng/ml Total Protein 6.1 L (6.4-8.2) gm/dl Albumin 2.7 L (3.4-5.0) gm/dl Globulin 3.4 (2.5-4.0) gm/dl Albumin/Globulin Ratio 0.8 L (0.9-2) TSH (0.300-4.500) uIu/ml Free T4 (0.8-1.6) ng/dl Urine Color Urine Appearance (Clear) Urine pH (4.5-7.5) Ur Specific Billings (1.000-1.030) Urine Protein (Negative) Urine Glucose (UA) (Negative) Urine Ketones (Negative) Urine Blood (Negative) Urine Nitrite (Negative) Urine Bilirubin (Negative) Urine Urobilinogen (Negative) Ur Leukocyte Esterase (Negative) Urine WBC (Auto) (0-5) /hpf Urine RBC (Auto) (0-4) /hpf U Hyaline Cast (Auto) (0-5) /lpf U Epithel Cells (Auto) (0-5) /lpf Urine Bacteria (Auto) (Negative) COVID-19 Eval Order SARS-CoV-2, RNA, NAAT (NEGATIVE) 06/02/20 06/02/20 06/02/20 Range/Units 09:44 09:44 09:44 WBC (4.8-10.8) K/uL RBC (4.2-5.4) M/uL Hgb (12.0-16.0) g/dL POC Hgb (12.0-16.0) g/dl Hct (37-47) % POC Hct (37-47) % MCV (80-100) fL MCH (25-34) pg MCHC (32-36) g/dL RDW Std Deviation (36.4-46.3) fL RDW Coeff of Jeison (11.5-14.5) % Plt Count (130-400) K/uL MPV (7.4-10.4) fL Immature Gran % (Auto) % Neut % (Auto) % Lymph % (Auto) % Sutton % (Auto) % Eos % (Auto) % Baso % (Auto) % Neut # (Auto) (1.4-6.5) K/uL Lymph # (Auto) (1.2-3.4) K/uL Sutton # (Auto) (0.11-0.59) K/uL Eos # (Auto) (0-0.5) K/uL Baso # (Auto) (0-0.2) K/uL Immature Gran # (Auto) (0.00-0.02) K/uL PT (9.0-12.0) Seconds INR (0.9-1.1) APTT (21.0-31.0) Seconds PTT Ratio POC Sodium (135-144) mmol/L Sodium (136-145) mmol/L POC Potassium (3.3-5.0) mmol/L Potassium (3.5-5.1) mmol/L POC Chloride (101-112) mmol/L Chloride (98-107) mmol/L Carbon Dioxide (21-32) mmol/L POC Total CO2 (24-31) mmol/L Anion Gap (3-11) POC Anion Gap (16-25) mmol/L POC BUN (7-18) mg/dl BUN (7-18) mg/dl Creatinine (0.6-1.2) mg/dl POC Creatinine (0.6-1.3) mg/dl Est Cr Clr Drug Dosing ml/min Est GFR ( Amer) Est GFR (Non-Af Amer) BUN/Creatinine Ratio (10-20) Glucose (70-99) mg/dl POC Glucose (other) (70-99) mg/dl Lactate 2.5 H* (0.4-2.0) mmol/L Calcium (8.5-10.1) mg/dl POC Ioniz Calcium Zoe (1.12-1.32) mmol/l Magnesium (1.8-2.4) mg/dl Total Bilirubin (0.2-1) mg/dl AST (15-37) U/L ALT (12-78) U/L Alkaline Phosphatase (45-117) U/L Troponin I 0.025 (0-0.045) ng/ml Total Protein (6.4-8.2) gm/dl Albumin (3.4-5.0) gm/dl Globulin (2.5-4.0) gm/dl Albumin/Globulin Ratio (0.9-2) TSH 0.230 L (0.300-4.500) uIu/ml Free T4 1.45 (0.8-1.6) ng/dl Urine Color Urine Appearance (Clear) Urine pH (4.5-7.5) Ur Specific Billings (1.000-1.030) Urine Protein (Negative) Urine Glucose (UA) (Negative) Urine Ketones (Negative) Urine Blood (Negative) Urine Nitrite (Negative) Urine Bilirubin (Negative) Urine Urobilinogen (Negative) Ur Leukocyte Esterase (Negative) Urine WBC (Auto) (0-5) /hpf Urine RBC (Auto) (0-4) /hpf U Hyaline Cast (Auto) (0-5) /lpf U Epithel Cells (Auto) (0-5) /lpf Urine Bacteria (Auto) (Negative) COVID-19 Eval Order SARS-CoV-2, RNA, NAAT (NEGATIVE) 06/02/20 06/02/20 06/02/20 Range/Units 10:02 11:41 11:47 WBC (4.8-10.8) K/uL RBC (4.2-5.4) M/uL Hgb (12.0-16.0) g/dL POC Hgb 10.9 L (12.0-16.0) g/dl Hct (37-47) % POC Hct 32 L (37-47) % MCV (80-100) fL MCH (25-34) pg MCHC (32-36) g/dL RDW Std Deviation (36.4-46.3) fL RDW Coeff of Jeison (11.5-14.5) % Plt Count (130-400) K/uL MPV (7.4-10.4) fL Immature Gran % (Auto) % Neut % (Auto) % Lymph % (Auto) % Sutton % (Auto) % Eos % (Auto) % Baso % (Auto) % Neut # (Auto) (1.4-6.5) K/uL Lymph # (Auto) (1.2-3.4) K/uL Sutton # (Auto) (0.11-0.59) K/uL Eos # (Auto) (0-0.5) K/uL Baso # (Auto) (0-0.2) K/uL Immature Gran # (Auto) (0.00-0.02) K/uL PT (9.0-12.0) Seconds INR (0.9-1.1) APTT (21.0-31.0) Seconds PTT Ratio POC Sodium 127 L (135-144) mmol/L Sodium (136-145) mmol/L POC Potassium 3.8 (3.3-5.0) mmol/L Potassium (3.5-5.1) mmol/L POC Chloride 89 L (101-112) mmol/L Chloride (98-107) mmol/L Carbon Dioxide (21-32) mmol/L POC Total CO2 25 (24-31) mmol/L Anion Gap (3-11) POC Anion Gap 17.0 (16-25) mmol/L POC BUN 11 (7-18) mg/dl BUN (7-18) mg/dl Creatinine (0.6-1.2) mg/dl POC Creatinine 0.5 L (0.6-1.3) mg/dl Est Cr Clr Drug Dosing ml/min Est GFR ( Amer) Est GFR (Non-Af Amer) BUN/Creatinine Ratio (10-20) Glucose (70-99) mg/dl POC Glucose (other) 133 H (70-99) mg/dl Lactate 2.5 H* (0.4-2.0) mmol/L Calcium (8.5-10.1) mg/dl POC Ioniz Calcium Zoe 1.13 (1.12-1.32) mmol/l Magnesium (1.8-2.4) mg/dl Total Bilirubin (0.2-1) mg/dl AST (15-37) U/L ALT (12-78) U/L Alkaline Phosphatase (45-117) U/L Troponin I (0-0.045) ng/ml Total Protein (6.4-8.2) gm/dl Albumin (3.4-5.0) gm/dl Globulin (2.5-4.0) gm/dl Albumin/Globulin Ratio (0.9-2) TSH (0.300-4.500) uIu/ml Free T4 (0.8-1.6) ng/dl Urine Color Yellow Urine Appearance Clear (Clear) Urine pH 8.0 H (4.5-7.5) Ur Specific Billings 1.027 (1.000-1.030) Urine Protein Negative (Negative) Urine Glucose (UA) Negative (Negative) Urine Ketones Negative (Negative) Urine Blood 1+ H (Negative) Urine Nitrite Negative (Negative) Urine Bilirubin Negative (Negative) Urine Urobilinogen Negative (Negative) Ur Leukocyte Esterase Negative (Negative) Urine WBC (Auto) 0 (0-5) /hpf Urine RBC (Auto) 5-10 H (0-4) /hpf U Hyaline Cast (Auto) 0 (0-5) /lpf U Epithel Cells (Auto) 0-5 (0-5) /lpf Urine Bacteria (Auto) Negative (Negative) COVID-19 Eval Order SARS-CoV-2, RNA, NAAT (NEGATIVE) 06/02/20 06/02/20 Range/Units 12:48 12:48 WBC (4.8-10.8) K/uL RBC (4.2-5.4) M/uL Hgb (12.0-16.0) g/dL POC Hgb (12.0-16.0) g/dl Hct (37-47) % POC Hct (37-47) % MCV (80-100) fL MCH (25-34) pg MCHC (32-36) g/dL RDW Std Deviation (36.4-46.3) fL RDW Coeff of Jeison (11.5-14.5) % Plt Count (130-400) K/uL MPV (7.4-10.4) fL Immature Gran % (Auto) % Neut % (Auto) % Lymph % (Auto) % Sutton % (Auto) % Eos % (Auto) % Baso % (Auto) % Neut # (Auto) (1.4-6.5) K/uL Lymph # (Auto) (1.2-3.4) K/uL Sutton # (Auto) (0.11-0.59) K/uL Eos # (Auto) (0-0.5) K/uL Baso # (Auto) (0-0.2) K/uL Immature Gran # (Auto) (0.00-0.02) K/uL PT (9.0-12.0) Seconds INR (0.9-1.1) APTT (21.0-31.0) Seconds PTT Ratio POC Sodium (135-144) mmol/L Sodium (136-145) mmol/L POC Potassium (3.3-5.0) mmol/L Potassium (3.5-5.1) mmol/L POC Chloride (101-112) mmol/L Chloride (98-107) mmol/L Carbon Dioxide (21-32) mmol/L POC Total CO2 (24-31) mmol/L Anion Gap (3-11) POC Anion Gap (16-25) mmol/L POC BUN (7-18) mg/dl BUN (7-18) mg/dl Creatinine (0.6-1.2) mg/dl POC Creatinine (0.6-1.3) mg/dl Est Cr Clr Drug Dosing ml/min Est GFR ( Amer) Est GFR (Non-Af Amer) BUN/Creatinine Ratio (10-20) Glucose (70-99) mg/dl POC Glucose (other) (70-99) mg/dl Lactate (0.4-2.0) mmol/L Calcium (8.5-10.1) mg/dl POC Ioniz Calcium Zoe (1.12-1.32) mmol/l Magnesium (1.8-2.4) mg/dl Total Bilirubin (0.2-1) mg/dl AST (15-37) U/L ALT (12-78) U/L Alkaline Phosphatase (45-117) U/L Troponin I (0-0.045) ng/ml Total Protein (6.4-8.2) gm/dl Albumin (3.4-5.0) gm/dl Globulin (2.5-4.0) gm/dl Albumin/Globulin Ratio (0.9-2) TSH (0.300-4.500) uIu/ml Free T4 (0.8-1.6) ng/dl Urine Color Urine Appearance (Clear) Urine pH (4.5-7.5) Ur Specific Billings (1.000-1.030) Urine Protein (Negative) Urine Glucose (UA) (Negative) Urine Ketones (Negative) Urine Blood (Negative) Urine Nitrite (Negative) Urine Bilirubin (Negative) Urine Urobilinogen (Negative) Ur Leukocyte Esterase (Negative) Urine WBC (Auto) (0-5) /hpf Urine RBC (Auto) (0-4) /hpf U Hyaline Cast (Auto) (0-5) /lpf U Epithel Cells (Auto) (0-5) /lpf Urine Bacteria (Auto) (Negative) COVID-19 Eval Order Covid19 [facility] SARS-CoV-2, RNA, NAAT NEGATIVE (NEGATIVE) Administered Medications Sodium Chloride (Nss 1000ml) 1,000 mls @ 999 mls/hr IV .Q1H1M ONE Stop: 06/02/20 14:49 Last Admin: 06/02/20 14:02 Dose: 999 mls/hr Documented by: [id number] Discontinued Medications Dexamethasone (Dexamethasone Sod Inj 10 Mg/Ml Vial) 10 mg IV NOW ONE Stop: 06/02/20 12:03 Last Admin: 06/02/20 12:34 Dose: 10 mg Documented by: [id number] Ceftriaxone Sodium (Rocephin) 1,000 mg in 50 mls @ 100 mls/hr IV NOW STA Stop: 06/02/20 14:20 Last Admin: 06/02/20 14:02 Dose: 100 mls/hr Documented by: [id number] Ioversol (Optiray 320 125ml) 119 ml IV ONCE ONE Stop: 06/02/20 10:34 Last Admin: 06/02/20 10:33 Dose: 119 ml Documented by: [id number] Discharge Plan Visit Data Chief Complaint: Shortness of Breath/Dyspnea Stated Complaint: SOB,FILLING UP WITH FLUID ED Provider: Yannick Brown Discharge Problem: Breath shortness, Recurrent thyroid cancer, Swollen throat, Abnormal ECG, Elevated lactic acid level Forms Stand Alone Forms: My [facility] Prescriptions Prescriptions: No Action dexamethasone 4 mg tablet 4 mg PO DAILY RF: 0 Eliquis 5 mg tablet 5 mg PO BID RF: 0 fentanyl 50 mcg/hr patch 72 hour 50 mcg transdermal .Q3DAYS RF: 0 metoprolol succinate 25 mg tablet extended release 24 hr 25 mg PO DAILY RF: 0 multivitamin Tablet 1 tab PO DAILY RF: 0 atorvastatin 10 mg tablet 10 mg PO HS RF: 0 aspirin [Aspir-81] 81 mg Tablet,Delayed Release (Dr/Ec) 81 mg PO 3XWK RF: 0 levothyroxine 100 mcg tablet 100 mcg PO DAILY RF: 0
[2020-06-02 10:13] LABS: Basophils # (auto) 0.02 K/uL (0-0.2); Basophils % (auto) 0.2 %; Eosinophils # (auto) 0.02 K/uL (0-0.5); Eosinophils % (auto) 0.2 %; Hematocrit (blood only) 36.8 % (37-47); Hemoglobin 12.8 g/dL (12.0-16.0); Immature Granulocytes # (auto) 0.54 K/uL (0.00-0.02); Immature Granulocytes % (auto) 4.2 %; Lymphocytes # (auto) 1.28 K/uL (1.2-3.4); Mean Corpuscular Hemoglobin 32.8 pg (25-34); Mean Corpuscular Hgb Conc 34.8 g/dL (32-36); Mean Corpuscular Volume 94.4 fL (80-100); Mean Platelet Volume 7.8 fL (7.4-10.4); Monocytes # (auto) 0.66 K/uL (0.11-0.59); Monocytes % (auto) 5.2 %; Neutrophils # (auto) 10.23 K/uL (1.4-6.5); Neutrophils % (auto) 80.2 %; Platelet Count 250 K/uL (130-400); RDW Coefficient of Variation 18.6 % (11.5-14.5); RDW Standard Deviation 64.5 fL (36.4-46.3); White Blood Count 12.75 K/uL (4.8-10.8)
[2020-06-02 10:21] LABS: iSTAT Creatinine 0.5 mg/dl (0.6-1.3); iSTAT Hemoglobin 10.9 g/dl (12.0-16.0); iSTAT Ionized Calcium 1.13 mmol/l (1.12-1.32); iSTAT Potassium 3.8 mmol/L (3.3-5.0)
--- NOTE | 2020-06-02 10:27 | XRay Report ---
XR chest 1V portable CLINICAL HISTORY: SEPSIS COMPARISON STUDY: 03/11/2016 FINDINGS: The heart is borderline enlarged. There is no failure. There are bibasilar opacities, likel y atelectatic. There is a nodular opacity at the right lung base, also likely atelectatic. There are no significant pleural effusions. There is no pneumothorax.[ IMPRESSION: 1. Borderline cardiomegaly 2. No evidence of failure 3. Basilar opacities statistically atelectatic ACT 112: Negative or not required by law. Electronically signed by: Dieudonne Maciel M.D. 06/02/2020 10:26 AM
[2020-06-02 10:28] LABS: Prothrombin Time 10.8 Seconds (9.0-12.0)
[2020-06-02] MEDS ORDERED: OPTIRAY 320 125ml IV ONE (10:33)
[2020-06-02 10:34] LABS: Albumin Level 2.7 gm/dl (3.4-5.0); Calcium 8.6 mg/dl (8.5-10.1); Est GFR (African American) 104.2; Est GFR (Non-African American) 89.9; Magnesium 1.7 mg/dl (1.8-2.4); Potassium 3.7 mmol/L (3.5-5.1)
[2020-06-02 10:37] LABS: Albumin Globulin Ratio 0.8 (0.9-2); Globulin 3.4 gm/dl (2.5-4.0); Total Protein 6.1 gm/dl (6.4-8.2)
--- NOTE | 2020-06-02 11:07 | CT Scan Report ---
CT ANGIOGRAM OF THE CHEST CLINICAL HISTORY: Difficulty breathing. . Right-sided chest pain. Possible acute pulmonary embolism. COMPARISON STUDY: November 2014 TECHNIQUE: Following the IV administration of 119 mL of Optiray-320, CT angiogram of the thorax was p erformed from the thoracic inlet to the lung bases utilizing the pulmonary embolus protocol. Images a re reviewed in the axial, sagittal, and coronal planes. IV contrast was administered without complica tion. MIP imaging was performed. A dose lowering technique was utilized adhering to the principles o f ALARA. CT DOSE: 399.29 mGy.cm FINDINGS: The visualized portions the upper abdomen reveal cholelithiasis. There is a borderline enlarged right paratracheal lymph node. There is no evidence of hilar lymphaden opathy. There is no evidence of pathologic axillary lymphadenopathy. There was no evidence of thoracic aortic dilatation. There were no pulmonary artery filling defects to indicate acute pulmonary embolism. No pleural effusions are visualized. There is a 24 mm right middle lobe pulmonary nodule there are bilateral lower lobe parenchymal opacit ies, likely atelectatic. There is a partially visualized infiltrative mass at the base of the right neck. This demonstrates ad jacent bony destructive change and is suspicious for neoplasm. There is associated tracheal narrowing . There is no foraminal involvement. This will be further described in a CT scan of the neck report. IMPRESSION: 1. No evidence of acute pulmonary embolism 2. Solid 24 mm right middle lobe pulmonary nodule 3. Partially visualized infiltrative mass the base the neck with adjacent bone destruction. There is associated tracheal narrowing. ACT 112: Negative or not required by law. Electronically signed by: Dieudonne Maciel M.D. 06/02/2020 11:06 AM
--- NOTE | 2020-06-02 11:13 | CT Scan Report ---
CT OF THE NECK WITH IV CONTRAST CLINICAL HISTORY: trouble breathing swelling in neck r sided clot COMPARISON STUDY: CT of the neck March 11, 2016. TECHNIQUE: Following IV administration of 119 mL of Optiray-320, helical axial images of the neck we re obtained. Sagittal and coronal reconstructions were viewed. Automated exposure control was utili Supremexd for the study. A dose lowering technique was utilized adhering to the principles of ALARA. FINDINGS: Please note that the chest CT will be reported separately. Visualized portions of the intr acranial contents are unremarkable. Epiglottis is normal. Supraglottic edema is noted with airway reagan rowing. Paravertebral infiltration may be treatment related. There is no fluid collection to suggest an abscess. There is no soft tissue gas. Note is made of an infiltrative right inferior cervical mass within the expected location of the scalene muscles. This mass measures approximately 5.2 x 2.9 cm a nd encases and narrows the right vertebral artery, erodes the right transverse process of C7 and exte nds into several right-sided neural foramen within the lower cervical spine. Infiltrative soft tissue is also suspected within the right thyroidectomy bed. The thyroid gland is surgically absent. The ve ins within the neck are suboptimally assessed given arterial phase imaging on this examination. Note is made of mild tracheal airway narrowing just above of the level of the thoracic inlet. IMPRESSION: 1. Infiltrative right lower cervical mass within the expected location of the scalene muscles, measur ing approximately 5.2 x 2.9 cm. This encases and narrows the right vertebral artery, erodes the right transverse process of C7 and extends into several right-sided neural foramen within the lower cervic al spine. Additional infiltrative soft tissue within the right thyroidectomy bed. These findings are highly suggestive of recurrent thyroid cancer. 2. Supraglottic edema with at least moderate supraglottic airway narrowing. This finding is age-indet erminate. Mild tracheal narrowing just above the level of the thoracic inlet. 3. Parapharyngeal infiltration which is nonspecific but may be treatment related. ACT 112: Negative or not required by law. Electronically signed by: William Sofia M.D. 06/02/2020 11:12 AM
--- NOTE | 2020-06-02 11:21 | Electrocardiogram Report ---
Test Reason : Blood Pressure : / mmHG Vent. Rate : 113 BPM Atrial Rate : 113 BPM P-R Int : 146 ms QRS Dur : 080 ms QT Int : 312 ms P-R-T Axes : 031 014 020 degrees QTc Int : 427 ms Sinus tachycardia with Premature atrial complexes Incomplete right bundle branch block T-wave inversion in Anteroseptal leads , consider ischemia Abnormal ECG When compared with ECG of 11-MAR-2016 06:39, T wave inversion now evident in Anteroseptal leads Confirmed by Margarito Mata ([id number]) on 06/02/2020 11:21:32 AM Referred By: REFERRED SELF Confirmed By:Margarito Mata
[2020-06-02] MEDS ORDERED: DEXAMETHASONE SOD INJ 10 MG/ML VIAL IV ONE (12:02)
[2020-06-02 12:05] LABS: Appearance Urine Clear (Clear); Bacteria Urine Automated Negative (Negative); Bilirubin Urine Negative (Negative); Blood Urine 1+ (Negative); Cast Urine Automated 0 /lpf (0-5); Color Urine Yellow; Epithelial Cell Urine Auto 0-5 /lpf (0-5); Glucose Urine UA Negative (Negative); Ketones Urine Negative (Negative); Leukocyte Esterase Urine Negative (Negative); Nitrite Urine Negative (Negative); Protein Urine Negative (Negative); Specific Gravity Urine 1.027 (1.000-1.030); Urobilinogen Urine Negative (Negative); WBC Urine Automated 0 /hpf (0-5)
[2020-06-02 12:54] LABS: Thyroid Stimulating Hormone 0.23 uIu/ml (0.300-4.500)
[2020-06-02 13:06] LABS: T4 Free Thyroxine 1.45 ng/dl (0.8-1.6)
--- NOTE | 2020-06-02 13:40 | History & Physical Report ---
Date of Service June 02, 2020 Assessment & Plan (1) Recurrent thyroid cancer: (2) Swollen throat: - Admit for obs -Patient received 10 mg IV Decadron in the ER, will continue on 6 mg every 8 IV -Continue IVF, clear liquids as the patient is able to tolerate it, reports that her swelling has improved since getting Decadron as above -Follows with [facility], Dr. Preethi Abreu, requested records from their facility be sent here -Initially there was discussion about transferring to [facility] as she receives chemotherapy there, follows closely with oncology, last chemo was 2 weeks ago, [place] does not have any available beds. -CT neck reviewed, CTA chest reviewed (3) Pulmonary emboli: -Continue Eliquis , hx of such - CTA from today is negative for acute PE, (4) Hyponatremia: -NA 130 on admission, continue NSS at 125 ml/hr -Follow with am labs (5) DVT prophylaxis: - Sirisha salinas CODE: DNR Dispo: From home, likely to remain in the hospital x 1-2 days, lives at home with History of Present Illness Primary Care Provider: Janes Melendez MD This is a 75-year-old female with PMHx of recurrent metastatic anaplastic thyroid cancer, history of PE, hyponatremia, nausea. Patient was initially diagnosed in 1991 and was in remission for a long time. This recurred in 2005 with a tumor. She follows with Dr. Preethi Abreu. oncologist at [facility]. She is currently undergoing chemotherapy at [facility]. It was discussed b etween the ER and [place] regarding possible transfer of the patient but her she does not have any beds available at this point time. Patient reports that she woke up feeling short of breath, had difficulty with swallowing, felt increased fullness of her throat and came to the ER. She was able to eat tapioca pudding but had difficulty doing so. She lives at home with her . She has been te sted for COVID which is negative, no fever sweats or chills. She reports feeling improvement with her breathing at this point time after receiving dexamethasone 10 mg IV in the ER. She does take Decadron 4 mg daily at home, unsure if she took this medication today. She took her thyroid medication and 2 other pills but cannot recall what they are. Allergies Allergy/AdvReac Type Severity Reaction Status Date / Time penicillin G Allergy Unknown . Verified 06/02/20 09:34 Home Medications Home Medications Medication Instructions Recorded Confirmed Type aspirin [Aspir-81] 81 mg PO 3XWK 09/02/19 06/02/20 History atorvastatin 10 mg PO HS 09/02/19 06/02/20 History levothyroxine 100 mcg PO DAILY 09/02/19 06/02/20 History multivitamin 1 tab PO DAILY 09/02/19 06/02/20 History apixaban [Eliquis] 5 mg PO BID 06/02/20 06/02/20 History dexamethasone 4 mg PO DAILY 06/02/20 06/02/20 History fentanyl 50 mcg TRANSDERMAL .Q3DAYS 06/02/20 06/02/20 History metoprolol succinate 25 mg PO DAILY 06/02/20 06/02/20 History Past Med/Surg History Medical History (Updated 06/02/20 @ 14:16 by Marcela Sanabria PA-C) Anaplastic carcinoma of thyroid Encounter for attention to tracheostomy Pulmonary emboli Recurrent thyroid cancer "Thyroid carcinoma in 1991 Status post thyroidectomy followed by radioactive iodine Development of a left neck mass October 2014 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 Status post left neck dissection 12/31/2014 4 of 26 nodes positive 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 Status post right neck compartment dissection 12/23/2015 revealing recurrent papillary carcinoma of the thyroid 0 of 7 nodes positive Status post radiation therapy treatments stopped on 03/04/2016 with one remaining fraction, received 6400 cGy combined with chemotherapy." On 01/05/16 10:43 Teresa Meier wrote "Thyroid carcinoma in 1991 Status post thyroidectomy followed by radioactive iodine Development of a left neck mass October 2014 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 Status post left neck dissection 12/31/2014 4 of 26 nodes positive 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 Status post right neck compartment dissection 12/23/2015 revealing recurrent papillary carcinoma of the thyroid 0 of 7 nodes positive " Tracheostomy complication Family History Other Family history non-contributory Social History Smoking Status: Never smoker Hx Alcohol Use: No Hx Substance Use: No Preferred Language: Nepali Communication Ability: Effective 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 Beliefs That Will Affect Care: None marital status: Current Living Situation: Spouse current occupational status: retired Feels Safe at Home: Yes Review of Systems 2 Review of Systems: Constitutional: No fever, sweats or chills Eyes: No diplopia, no worsening or blurred vision ENT: normal hearing, + trouble swallowing and fullness in her throat as per HPI Respiratory: No cough, sputum, dyspnea at rest or on exertion Cardiovascular: No chest pain, tightness or palpitations Abdomen: No pain, nausea, vomiting, diarrhea or constipation Musculoskeletal: No joint pain, calf pain, swelling Neurologic: No weakness, numbness/tingling, or balance problems Psychiatric: No anxiety or depression Skin: No rash or itch Physical Exam Physical Exam: General: awake, alert, no apparent distress, + frail Head: Normocephalic, atraumatic ENT: PERRL, EOMI, no pharyngeal exudate, mucous membranes moist, + fullness in posterior pharynx, no erythema. + thyroid palpated, tender to palpation, + hard nodular, nonmobile mass extending down into the left scalene region and supraclavicular region. Chest: Clear to auscultation, on room air, no adventitious breath sounds Cardiac: Regular rate and rhythm, no murmur, no JVD, normal peripheral pulses, good capillary refill Abdominal: NABS x 4 quadrants, soft, nontender to palpation, no rebound, guarding or tenderness Extremities: Normal inspection, no peripheral edema or erythema, calfs nontender to palpation Psych: Normal mood and affect Neuro: AAO x 3, strength intact bilaterally and rated 5/5, no motor deficits, speech is clear, no peripheral sensory deficits Results & Data Results & Data ([facility]) Vital Signs (Past 12 Hours) Vital Signs Temp Pulse Resp BP Pulse Ox 06/02/20 13:01 99 H 18 96 06/02/20 12:38 94 H 19 139/82 96 06/02/20 11:21 22 95 06/02/20 11:16 101 H 24 152/86 H 95 06/02/20 10:41 94 H 19 96 06/02/20 10:28 24 95 06/02/20 09:40 95 06/02/20 09:31 106 H 22 95 06/02/20 09:02 37.0 C 130 H 20 139/[address] OF THE NECK WITH IV CONTRAST CLINICAL HISTORY: trouble breathing swelling in neck r sided clot COMPARISON STUDY: CT of the neck March 11, 2016. TECHNIQUE: Following IV administration of 119 mL of Optiray-320, helical axial images of the neck were obtained. Sagittal and coronal reconstructions were viewed. Automated exposure control was utilized for the study. A dose lowering technique was utilized adhering to the principles of ALARA. FINDINGS: Please note that the chest CT will be reported separately. Visualized portions of the intracranial contents are unremarkable. Epiglottis is normal. Supraglottic edema is noted with airway narrowing. Paravertebral infiltration may be treatment related. There is no fluid collection to suggest an abscess. There is no soft tissue gas. Note is made of an infiltrative right inferior cervical mass within the expected location of the scalene muscles. This mass measures approximately 5.2 x 2.9 cm and encases and narrows the right vertebral artery, erodes the right transverse process of C7 and extends into several right-sided neural foramen within the lower cervical spine. Infiltrative soft tissue is also suspected within the right thyroidectomy bed. The thyroid gland is surgically absent. The veins within the neck are suboptimally assessed given arterial phase imaging on this examination. Note is made of mild tracheal airway narrowing just above of the level of the thoracic inlet. IMPRESSION: 1. Infiltrative right lower cervical mass within the expected location of the scalene muscles, measuring approximately 5.2 x 2.9 cm. This encases and narrows the right vertebral artery, erodes the right transverse process of C7 and extends into several right-sided neural foramen within the lower cervical spine. Additional infiltrative soft tissue within the right thyroidectomy bed. These findings are highly suggestive of recurrent thyroid cancer. 2. Supraglottic edema with at least moderate supraglottic airway narrowing. This finding is age-indeterminate. Mild tracheal narrowing just above the level of the thoracic inlet. 3. Parapharyngeal infiltration which is nonspecific but may be treatment related. XR chest 1V portable CLINICAL HISTORY: SEPSIS COMPARISON STUDY: 03/11/2016 FINDINGS: The heart is borderline enlarged. There is no failure. There are bibasilar opacities, likely atelectatic. There is a nodular opacity at the right lung base, also likely atelectatic. There are no significant pleural effusions. There is no pneumothorax.[ IMPRESSION: 1. Borderline cardiomegaly 2. No evidence of failure 3. Basilar opacities statistically atelectatic CT ANGIOGRAM OF THE CHEST CLINICAL HISTORY: Difficulty breathing. . Right-sided chest pain. Possible acute pulmonary embolism. COMPARISON STUDY: November 2014 TECHNIQUE: Following the IV administration of 119 mL of Optiray-320, CT angiogram of the thorax was performed from the thoracic inlet to the lung bases utilizing the pulmonary embolus protocol. Images are reviewed in the axial, sagittal, and coronal planes. IV contrast was administered without complication. MIP imaging was performed. A dose lowering technique was utilized adhering to the principles of ALARA. CT DOSE: 399.29 mGy.cm FINDINGS: The visualized portions the upper abdomen reveal cholelithiasis. There is a borderline enlarged right paratracheal lymph node. There is no evidence of hilar lymphadenopathy. There is no evidence of pathologic axillary lymphadenopathy. There was no evidence of thoracic aortic dilatation. There were no pulmonary artery filling defects to indicate acute pulmonary embolism. No pleural effusions are visualized. There is a 24 mm right middle lobe pulmonary nodule there are bilateral lower lobe parenchymal opacities, likely atelectatic. There is a partially visualized infiltrative mass at the base of the right neck. This demonstrates adjacent bony destructive change and is suspicious for neoplasm. There is associated tracheal narrowing. There is no foraminal involvement. This will be further described in a CT scan of the neck report. IMPRESSION: 1. No evidence of acute pulmonary embolism 2. Solid 24 mm right middle lobe pulmonary nodule 3. Partially visualized infiltrative mass the base the neck with adjacent bone destruction. There is associated tracheal narrowing. Code Status & VTE Plan Code Status DNR -discussed with the patient at bedside Supervising Physician Co-Signing Physician Notes Patient was seen and examined independently I discussed the case with Merry ADDISON I reviewed pertinent past medical social family history and also the plan of care and agree with the plan of care. Patient here with worsening symptoms regarding recent treatment of metastatic thyroid carcinoma. She has discomfort with swallowing but she is able to protect her airway and swallow her own secretions. Reportedly emergency room attending is not contacted [facility] recommend increasing steroid treatment and watching her airway with concerns for transfer to [place] if she would require further inpatient stay. Currently her she has no beds Vital signs were reviewed her neck is very firm there is some skin changes likely consistent with external radiation very firm and woody. Oropharynx is without exudates or changes although does appear to be a bit crowded if that is possible. Card exam is regular lungs are clear there is no stridor Supportive care and steroids with pain control and anxiety control Any exceptions will be noted below PG Care Time/CCT Total # of Minutes Spent Total Time Spent with Patient: Total time spent is greater than 50% in coordination of care (as documented) at patient's floor/unit and/or counseling patient: Coding Level of Care Code 36390 OBS Care - Level 3 Diagnoses Recurrent thyroid cancer C73 Swollen throat R22.1 Pulmonary emboli I26.99 Hyponatremia E87.1 DVT prophylaxis Z29.9
[2020-06-02] MEDS ORDERED: SODIUM CHLORIDE 0.9% 1000ML 1,000 ML IV ONE (13:49)
[2020-06-02] MEDS ORDERED: cefTRIAXone SODIUM 1,000 MG/50 ML BAG IV STA (13:51)
[2020-06-02] MEDS ORDERED: LORazepam 0.5 MG/1 ML VIAL IV PRN (16:18)
[2020-06-02] MEDS ORDERED: dexAMETHasone 6 MG in DEXTROSE 5% 25 ML IV SCH (16:18)
[2020-06-02] MEDS ORDERED: CHLORASEPTIC 1.4% SOLN 180 ML BTL MT PRN (16:18)
[2020-06-02] MEDS ORDERED: ACETAMINOPHEN 325 MG TAB PO PRN (16:18)
[2020-06-02] MEDS ORDERED: ONDANSETRON INJ 2 MG/ML 2 ML VIAL IV PRN (16:18)
[2020-06-02] MEDS: SODIUM CHLORIDE 0.9% 1000ML 1,000 ML IV SCH (16:45)
[2020-06-02] MEDS: CHECK FENTANYL PATCH PLACEMENT SCH (17:00)
[2020-06-02] MEDS: DEXAMETHASONE SOD PHOSPHATE 6 MG in SYRINGE 0 ML IV SCH (21:01)
[2020-06-02] MEDS: APIXABAN 5 MG TABLET PO SCH (21:02)
[2020-06-02] MEDS: ATORVASTATIN 10 MG TAB PO SCH (21:02)
[2020-06-03] MEDS: SODIUM CHLORIDE 0.9% 1000ML 1,000 ML IV SCH ×3 (00:09→17:49)
[2020-06-03] MEDS: CHECK FENTANYL PATCH PLACEMENT SCH ×4 (00:09→23:35)
[2020-06-03] MEDS: DEXAMETHASONE SOD PHOSPHATE 6 MG in SYRINGE 0 ML IV SCH ×3 (03:13→20:33)
[2020-06-03] MEDS: LEVOTHYROXINE SODIUM 100 MCG TABLET PO SCH (06:14)
[2020-06-03 07:12] LABS: Hematocrit (blood only) 33.4 % (37-47); Hemoglobin 11.7 g/dL (12.0-16.0); Mean Corpuscular Hemoglobin 33.1 pg (25-34); Mean Corpuscular Volume 94.4 fL (80-100); Mean Platelet Volume 8.4 fL (7.4-10.4); Platelet Count 220 K/uL (130-400); RDW Coefficient of Variation 18.6 % (11.5-14.5); RDW Standard Deviation 64.8 fL (36.4-46.3); Red Blood Count 3.54 M/uL (4.2-5.4); White Blood Count 9.68 K/uL (4.8-10.8)
[2020-06-03 07:42] LABS: BUN Creatinine Ratio 21.1 (10-20); Calcium 8.8 mg/dl (8.5-10.1); Creatinine Clr Calc Pharmacy 72.1 ml/min; Est GFR (African American) 107.8; Est GFR (Non-African American) 93.1; Potassium 3.8 mmol/L (3.5-5.1)
[2020-06-03 07:45] LABS: Albumin Globulin Ratio 0.6 (0.9-2); Albumin Level 2.2 gm/dl (3.4-5.0); Bilirubin,Total 0.7 mg/dl (0.2-1); Globulin 3.5 gm/dl (2.5-4.0); Total Protein 5.7 gm/dl (6.4-8.2)
[2020-06-03] MEDS: ASPIRIN 81 MG ECTAB PO SCH (08:01)
[2020-06-03] MEDS: APIXABAN 5 MG TABLET PO SCH ×2 (08:01→20:34)
[2020-06-03] MEDS: MULTIVITAMIN TAB PO SCH (08:01)
[2020-06-03] MEDS: METOPROLOL SUCC 25MG EXT REL TAB PO SCH (08:01)
--- NOTE | 2020-06-03 13:38 | Hospitalist Progress Note ---
Date of Service June 03, 2020 Assessment & Plan (1) Swollen throat: Secondary to right sided neck mass, malignancy Recently had po decadron dose cut down to 4mg daily from 8mg, suspect worsening inflammation given recent Keytruda treatment, XRT Presented with impending airway compromise, SOB, trouble swallowing Now improving on high dose IV Decadron-no need for transfer as per pt's discussion with her primary Oncologist today at [place] unless SOB worsens - continue on Decadron 6 mg IV q8hr -Continue IVF but decrease to 75mL/hr -adv diet to full liquids as is ramiro clears and feeling better, less swelling in throat -Follows with [facility], Dr. Preethi Abreu, requested records from their facility be sent here -Initially there was discussion about transferring to [facility] as she receives chemotherapy there, follows closely with oncology, last chemo was 2 weeks ago, [place] does not have any available beds and now no need for transfer. -CT neck reviewed, CTA chest reviewed -will request CT scans from here get transferred to [facility] for comparison -discussed code status with pt and at length--> they want to think about if she would want intuabtion or emergency tracheostomy again--leaning toward no and discussed comfort measures if this happened. They will let me know their final decision later today (2) Recurrent thyroid cancer: undergoing Keytruda infusions q3 weeks for the last 15 weeks, s/p XRT 1 month ago as above (3) Internal jugular vein thrombosis: Recently diagnosed at [facility] 2 weeks ago and was on Lovenox x 10 days and then transitioned to Eliquis recently Has swelling in right side of neck and some in face which reports is improved from previous -continue ELiquis (4) Breath shortness: secondary to swelling in throat as above, no h/o asthma or lung issues CTA Chest neg for PE or PNA COVID-19 is negative No chest pain but with TWIs anterolat on ECG trop neg repeat ECG today Now resolved SOB with IV Decadron (5) Abnormal ECG: TWIs anterolat leads, trop negative on admission likely secondary to strain from SOB/airway obstruction -repeat ECG today no h/o CAD, no chest pain (6) Elevated lactic acid level: likely secondary to tachypnea no evidence of sepsis (7) Hyponatremia: -NA 130 on admission,now improved to 134 with NS - continue NSS at lower rate 75mL/hr -Follow with am labs (8) DVT prophylaxis: - Sirisha salinas CODE: DNR/DNI, but wants to think about this some more today if airway compromised, not sure if would want emergency trach again Dispo: continue dstay, no need for transfer at this point Admission and Anticipated Discharge Date Admission Date: June 02, 2020 Subjective Feeling much better, no shortness of breath even with walking to the bathroom. Is able to swallow better. Has been tolerating clear liquids. No headache or lightheadedness. No chest pain. No abdominal pain or nausea. No constipation. She is making urine. reports the swelling in the right side of her neck and face is much improved. She recently switched Eliquis from Lovenox as she had a hematoma on her left side of her abdomen. They talked to their nurse practitioner at [place] oncology today who said that she does not need to be transferred down there as she is doing better unless the shortness of breath worsened again. Review of Systems Review of Systems: All systems reviewed & are unremarkable except as noted in HPI & below Physical Exam Constitutional: WD/WN, vitals as above Eyes: + anicteric sclerae ENMT: Ears: no hearing impairment Nose: no external nose abnormality and no facial tenderness Mouth: + oropharynx abnormality (Large tongue, difficult to see posterior oropharynx but appears patent) Neck: + abnormal visual inspection (Focal swelling on right side of neck, woody to palpation, nontender) Respiratory: normal respiratory effort, lungs clear to auscultation Cardiovascular: RRR, no murmur, no edema Chest (Breasts): Chest: normal inspection of chest Gastrointestinal (Abdomen): normal bowel sounds, soft, nontender, no hepatosplenomegaly Musculoskeletal: Extremities: extremities normal to inspection; no cyanosis and no clubbing Skin: no rashes, warm and dry + ecchymosis (Left side of abdomen, no significant hematoma) Neurologic: moves all extremities and awake; no focal motor deficits Psychiatric: A+Ox3, euthymic affect Lymphatic: no lymphedema Results & Data Results & Data ([facility]) Vital Signs (Past 12 Hours) Vital Signs Temp Pulse Pulse Resp BP Pulse Ox 06/03/20 11:32 36.7 C 80 18 118/69 95 06/03/20 07:17 36.5 C 72 18 112/70 92 06/03/20 07:12 108 H 06/03/20 02:45 36.3 C L 80 18 123/73 96 Laboratory Results 06/03/20 06/03/20 06/02/20 Range/Units 06:47 06:47 09:44 WBC 9.68 (4.8-10.8) K/uL RBC 3.54 L (4.2-5.4) M/uL Hgb 11.7 L (12.0-16.0) g/dL Hct 33.4 L (37-47) % MCV 94.4 (80-100) fL MCH 33.1 (25-34) pg MCHC 35.0 (32-36) g/dL RDW Std Deviation 64.8 H (36.4-46.3) fL RDW Coeff of Jeison 18.6 H (11.5-14.5) % Plt Count 220 (130-400) K/uL MPV 8.4 (7.4-10.4) fL Sodium 134 L (136-145) mmol/L Potassium 3.8 (3.5-5.1) mmol/L Chloride 101 (98-107) mmol/L Carbon Dioxide 25 (21-32) mmol/L Anion Gap 8.0 (3-11) BUN 12 (7-18) mg/dl Creatinine 0.55 L (0.6-1.2) mg/dl Est Cr Clr Drug Dosing 72.1 ml/min Est GFR ( Amer) 107.8 Est GFR (Non-Af Amer) 93.1 BUN/Creatinine Ratio 21.1 H (10-20) Glucose 165 H (70-99) mg/dl Calcium 8.8 (8.5-10.1) mg/dl Total Bilirubin 0.7 (0.2-1) mg/dl AST 17 (15-37) U/L ALT 30 (12-78) U/L Alkaline Phosphatase 60 (45-117) U/L Troponin I 0.025 (0-0.045) ng/ml Total Protein 5.7 L (6.4-8.2) gm/dl Albumin 2.2 L (3.4-5.0) gm/dl Globulin 3.5 (2.5-4.0) gm/dl Albumin/Globulin Ratio 0.6 L (0.9-2) PG Care Time/CCT Total # of Minutes Spent Total Time Spent with Patient: Total time spent is greater than 50% in coordination of care (as documented) at patient's floor/unit and/or counseling patient: Coding Level of Care Code 72608 Subseq Hosp Care Lvl 3 Diagnoses Swollen throat R22.1 Recurrent thyroid cancer C73 Internal jugular vein thrombosis I82.C19 Breath shortness R06.02 Abnormal ECG R94.31 Elevated lactic acid level R79.89 Hyponatremia E87.1 DVT prophylaxis Z29.9
--- NOTE | 2020-06-03 15:27 | Electrocardiogram Report ---
Test Reason : Blood Pressure : / mmHG Vent. Rate : 087 BPM Atrial Rate : 087 BPM P-R Int : 174 ms QRS Dur : 084 ms QT Int : 376 ms P-R-T Axes : 059 023 025 degrees QTc Int : 452 ms Normal sinus rhythm Abnormal ECG When compared with ECG of 02-JUN-2020 09:24, Premature atrial complexes are no longer Present Confirmed by Margarito Mata ([id number]) on 06/03/2020 3:26:23 PM Referred By: REFERRED SELF Confirmed By:Margarito Mata
[2020-06-03] MEDS: ATORVASTATIN 10 MG TAB PO SCH (20:34)
[2020-06-04] MEDS: DEXAMETHASONE SOD PHOSPHATE 6 MG in SYRINGE 0 ML IV SCH ×3 (03:48→20:15)
[2020-06-04] MEDS: LEVOTHYROXINE SODIUM 100 MCG TABLET PO SCH (06:22)
[2020-06-04] MEDS: SODIUM CHLORIDE 0.9% 1000ML 1,000 ML IV SCH (06:26)
[2020-06-04 08:21] LABS: Hematocrit (blood only) 32.8 % (37-47); Hemoglobin 11.4 g/dL (12.0-16.0); Mean Corpuscular Hemoglobin 32.9 pg (25-34); Mean Corpuscular Hgb Conc 34.8 g/dL (32-36); Mean Corpuscular Volume 94.5 fL (80-100); Mean Platelet Volume 7.7 fL (7.4-10.4); Platelet Count 212 K/uL (130-400); RDW Coefficient of Variation 18.3 % (11.5-14.5); RDW Standard Deviation 63.5 fL (36.4-46.3); Red Blood Count 3.47 M/uL (4.2-5.4); White Blood Count 12.32 K/uL (4.8-10.8)
[2020-06-04 08:49] LABS: Albumin Level 2.3 gm/dl (3.4-5.0); BUN Creatinine Ratio 21.1 (10-20); Calcium 8.4 mg/dl (8.5-10.1); Creatinine Clr Calc Pharmacy 77.7 ml/min; Est GFR (African American) 110.6; Est GFR (Non-African American) 95.4; Potassium 3.5 mmol/L (3.5-5.1)
[2020-06-04 08:52] LABS: Albumin Globulin Ratio 0.7 (0.9-2); Bilirubin,Total 0.7 mg/dl (0.2-1); Globulin 3.5 gm/dl (2.5-4.0); Total Protein 5.8 gm/dl (6.4-8.2)
[2020-06-04] MEDS ORDERED: fentaNYL 50 MCG/HR TDSY TD SCH (09:00)
[2020-06-04] MEDS: MULTIVITAMIN TAB PO SCH (09:16)
[2020-06-04] MEDS: CHECK FENTANYL PATCH PLACEMENT SCH ×3 (09:16→23:48)
[2020-06-04] MEDS: APIXABAN 5 MG TABLET PO SCH ×2 (09:16→20:15)
[2020-06-04] MEDS: METOPROLOL SUCC 25MG EXT REL TAB PO SCH (09:16)
--- NOTE | 2020-06-04 09:49 | XCELERA ---
[id number]
--- NOTE | 2020-06-04 10:30 | Cardiology Consultation ---
Date of Consultation June 04, 2020 Assessment & Plan (1) AV block, 2nd degree: She had a brief episode of Type 2 AV block with 2:1 AV conduction overnight while sleeping. This could have perhaps been secondary to increased vagal tone given her malignancy. Recommend reducing her metoprolol dose to 12.5 mg daily. She has had no other evidence of high grade AV block, and there is no indication for a pacemaker at this time. (2) Abnormal ECG: Her EKGs this admission have demonstrated T-wave inversion in her anteroseptal leads. She has had no anginal symptoms. Troponin was negative. Echocardiogram demonstrated normal LV wall motion and systolic function. No additional cardiovascular testing or intervention recommended in this regard. Supervising Physician Co-Signing Physician Notes ADDENDUM (Dr. Mata): Patient seen and examined. Agree with plan as outlined above by Ms. Jean Marie PA-C. In the case of 2:1 conduction with second-degree AV block it cannot be determined whether this is Mobitz type I or Mobitz type II. In this case, since the patient had only a transient episode while sleeping (during which time there would be high vagal tone) and since there is no evidence of other conduction system abnormalities (bradycardia, bundle branch block, etc.) this is most likely Mobitz type I phenomenon secondary to high vagal tone. To reduce the propensity to any bradycardia, reasonable to cut her metoprolol dose from 25 mg daily to 12.5 mg daily. In the absence of symptoms or more definitive evidence of conduction system disease, no other interventions necessary at this time. Her mildly abnormal ECG in regards to anteroseptal T wave inversions does not seem to represent ischemia given her unremarkable echocardiogram, negative troponins, in the absence of any dynamic/evolutionary ECG changes. Therefore no further ischemic work-up necessary at this time either. History of Present Illness Reason for Consultation: Type 2 AV block Requesting Physician: Dr. Daley History of Present Illness Mrs. Wood is a 75-year-old female with a past medical history significant for recurrent metastatic anaplastic thyroid cancer, internal jugular vein thrombosis (on ), remote history of atrial fibrillation when thyroid cancer was initially diagnosed, and hyponatremia who was admitted 2 days ago with shortness of breath and difficulty swallowing. The patient states that on Monday evening, she noted shortness of breath when getting into bed. She then woke up Monday feeling short of breath, even while resting. She also had difficulty swallowing. She came to the ER and her symptoms were felt to be secondary to throat swelling from her malignancy. She was treated with IV Decadron with improvement. Her PO Decadron had recently been decreased from 8 mg to 4 mg daily by her Oncologist, which was felt to have led to her worsening inflammation. She has been monitored on telemetry during her hospitalization, and overnight, she was noted to have a brief episode of Type 2 AV block with 2:1 AV conduction. Cardiology was therefore consulted for further evaluation. She is currently resting comfortably in her bed. She no longer feels short of breath, although she has not been up ambulating yet. Prior to Monday evening, she was doing some housework and walking around her yard with no exertional dyspnea. She denies orthopnea or PND. She notes intermittent lower extremity daysi ma secondary to her steroid use. She denies any symptoms of chest discomfort or other anginal type symptoms. She denies palpitations, lightheadedness, syncope, or near-syncope. She denies abnormal bleeding such as melena, hematochezia, or hematuria. She notes chronic right hand numbness. She denies any other cerebrovascular symptoms. Family history: Father of a [place] at 65. Social history: She is and lives at home with her . They have 3 sons and numerous grandchildren. 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 No smoking. Rare alcohol. Allergies Allergy/AdvReac Type Severity Reaction Status Date / Time penicillin G Allergy Unknown . Verified 06/02/20 09:34 Home Medications Home Medications Medication Instructions Recorded Confirmed Type aspirin [Aspir-81] 81 mg PO 3XWK 09/02/19 06/02/20 History atorvastatin 10 mg PO HS 09/02/19 06/02/20 History levothyroxine 100 mcg PO DAILY 09/02/19 06/02/20 History multivitamin 1 tab PO DAILY 09/02/19 06/02/20 History apixaban [Eliquis] 5 mg PO BID 06/02/20 06/02/20 History dexamethasone 4 mg PO DAILY 06/02/20 06/02/20 History fentanyl 50 mcg TRANSDERMAL .Q3DAYS 06/02/20 06/02/20 History metoprolol succinate 25 mg PO DAILY 06/02/20 06/02/20 History Patient History Medical History (Updated 06/04/20 @ 11:02 by Melony Aj PA-C) Anaplastic carcinoma of thyroid Encounter for attention to tracheostomy Internal jugular vein thrombosis Recurrent thyroid cancer "Thyroid carcinoma in 1991 Status post thyroidectomy followed by radioactive iodine Development of a left neck mass October 2014 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 Status post left neck dissection 12/31/2014 4 of 26 nodes positive 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 Status post right neck compartment dissection 12/23/2015 revealing recurrent papillary carcinoma of the thyroid 0 of 7 nodes positive Status post radiation therapy treatments stopped on 03/04/2016 with one remai deborah fraction, received 6400 cGy combined with chemotherapy." On 01/05/16 10:43 Teresa Meier wrote "Thyroid carcinoma in 1991 Status post thyroidectomy followed by radioactive iodine Development of a left neck mass October 2014 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 Status post left neck dissection 12/31/2014 4 of 26 nodes positive 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 Status post right neck compartment dissection 12/23/2015 revealing recurrent papillary carcinoma of the thyroid 0 of 7 nodes positive " Tracheostomy complication Family History Family history non-contributory Social History Smoking Status: Never smoker Hx Alcohol Use: No Hx Substance Use: No Preferred Language: Greek Communication Ability: Effective Salesperson Hearing Aids Required: No Beliefs That Will Affect Care: None marital status: Current Living Situation: Spouse current occupational status: retired Feels Safe at Home: Yes Safety Concerns: Feels Safe At This Time Review of Systems Review of Systems: All systems reviewed & are unremarkable except as noted in Subjective Physical Exam Physical Exam: Constitutional: Alert, oriented, in no acute distress HEENT: Head is atraumatic and normocephalic. EOMs intact. Sclera non-icteric. Face is symmetric. No perioral cyanosis. Mucous membranes moist Neck: Focal swelling of the right side of the neck, no appreciable JVD but dif ficult exam Pulmonary: Normal respiratory effort, clear to auscultation throughout Cardiac: Regular rate and rhythm, occasional ectopy, normal S1 and S2, no gallops, no rubs, 1/6 systolic murmur best heard at the right upper sternal border Extremities: No significant lower extremity edema. No clubbing or cyanosis. Pulses 2+ and symmetric Abdomen: Normal bowel sounds, soft, non-tender, no abdominal masses palpated Skin: Normal skin color, turgor, and pigmentation. No rash or skin lesions Neurological: Oriented to person, place, and time Results & Data ([facility]) Vital Signs (Past 12 Hours) Vital Signs Temp Pulse Pulse Resp BP Pulse Ox 06/04/20 07:08 97.9 F 82 18 148/75 H 96 06/04/20 02:40 97.5 F L 83 18 167/83 H 94 06/04/20 01:30 80 06/03/20 23:41 98.1 F 79 18 143/77 H 94 Laboratory Results Laboratory Results WBC 12.32 K/uL (4.8-10.8) H 06/04/20 07:56 RBC 3.47 M/uL (4.2-5.4) L 06/04/20 07:56 Hgb 11.4 g/dL (12.0-16.0) L 06/04/20 07:56 POC Hgb 10.9 g/dl (12.0-16.0) L 06/02/20 10:02 Hct 32.8 % (37-47) L 06/04/20 07:56 POC Hct 32 % (37-47) L 06/02/20 10:02 MCV 94.5 fL (80-100) 06/04/20 07:56 MCH 32.9 pg (25-34) 06/04/20 07:56 MCHC 34.8 g/dL (32-36) 06/04/20 07:56 RDW Std Deviation 63.5 fL (36.4-46.3) H 06/04/20 07:56 RDW Coeff of Jeison 18.3 % (11.5-14.5) H 06/04/20 07:56 Plt Count 212 K/uL (130-400) 06/04/20 07:56 MPV 7.7 fL (7.4-10.4) 06/04/20 07:56 Immature Gran % (Auto) 4.2 % 06/02/20 09:44 Neut % (Auto) 80.2 % 06/02/20 09:44 Lymph % (Auto) 10.0 % 06/02/20 09:44 [place] % (Auto) 5.2 % 06/02/20 09:44 Eos % (Auto) 0.2 % 06/02/20 09:44 Baso % (Auto) 0.2 % 06/02/20 09:44 Neut # (Auto) 10.23 K/uL (1.4-6.5) H 06/02/20 09:44 Lymph # (Auto) 1.28 K/uL (1.2-3.4) 06/02/20 09:44 [place] # (Auto) 0.66 K/uL (0.11-0.59) H 06/02/20 09:44 Eos # (Auto) 0.02 K/uL (0-0.5) 06/02/20 09:44 Baso # (Auto) 0.02 K/uL (0-0.2) 06/02/20 09:44 Immature Gran # (Auto) 0.54 K/uL (0.00-0.02) H 06/02/20 09:44 PT 10.8 Seconds (9.0-12.0) 06/02/20 09:44 INR 1.0 (0.9-1.1) 06/02/20 09:44 APTT 27.0 Seconds (21.0-31.0) 06/02/20 09:44 PTT Ratio 1.0 06/02/20 09:44 POC Sodium 127 mmol/L (135-144) L 06/02/20 10:02 Sodium 134 mmol/L (136-145) L 06/04/20 07:56 POC Potassium 3.8 mmol/L (3.3-5.0) 06/02/20 10:02 Potassium 3.5 mmol/L (3.5-5.1) 06/04/20 07:56 POC Chloride 89 mmol/L (101-112) L 06/02/20 10:02 Chloride 100 mmol/L (98-107) 06/04/20 07:56 Carbon Dioxide 29 mmol/L (21-32) 06/04/20 07:56 POC Total CO2 25 mmol/L (24-31) 06/02/20 10:02 Anion Gap 5.0 (3-11) 06/04/20 07:56 POC Anion Gap 17.0 mmol/L (16-25) 06/02/20 10:02 POC BUN 11 mg/dl (7-18) 06/02/20 10:02 BUN 11 mg/dl (7-18) 06/04/20 07:56 Creatinine 0.51 mg/dl (0.6-1.2) L 06/04/20 07:56 POC Creatinine 0.5 mg/dl (0.6-1.3) L 06/02/20 10:02 Est Cr Clr Drug Dosing 77.7 ml/min 06/04/20 07:56 Est GFR ( Amer) 110.6 06/04/20 07:56 Est GFR (Non-Af Amer) 95.4 06/04/20 07:56 BUN/Creatinine Ratio 21.1 (10-20) H 06/04/20 07:56 Glucose 153 mg/dl (70-99) H 06/04/20 07:56 POC Glucose (other) 133 mg/dl (70-99) H 06/02/20 10:02 Lactate 2.5 mmol/L (0.4-2.0) H* 06/02/20 11:41 Calcium 8.4 mg/dl (8.5-10.1) L 06/04/20 07:56 POC Ioniz Calcium Zoe 1.13 mmol/l (1.12-1.32) 06/02/20 10:02 Magnesium 1.7 mg/dl (1.8-2.4) L 06/02/20 09:44 Total Bilirubin 0.7 mg/dl (0.2-1) 06/04/20 07:56 AST 14 U/L (15-37) L 06/04/20 07:56 ALT 28 U/L (12-78) 06/04/20 07:56 Alkaline Phosphatase 58 U/L (45-117) 06/04/20 07:56 Troponin I 0.025 ng/ml (0-0.045) 06/02/20 09:44 Total Protein 5.8 gm/dl (6.4-8.2) L 06/04/20 07:56 Albumin 2.3 gm/dl (3.4-5.0) L 06/04/20 07:56 Globulin 3.5 gm/dl (2.5-4.0) 06/04/20 07:56 Albumin/Globulin Ratio 0.7 (0.9-2) L 06/04/20 07:56 TSH 0.230 uIu/ml (0.300-4.500) L 06/02/20 09:44 Free T4 1.45 ng/dl (0.8-1.6) 06/02/20 09:44 Urine Color Yellow 06/02/20 11:47 Urine Appearance Clear (Clear) 06/02/20 11:47 Urine pH 8.0 (4.5-7.5) H 06/02/20 11:47 Ur Specific [place] 1.027 (1.000-1.030) 06/02/20 11:47 Urine Protein Negative (Negative) 06/02/20 11:47 Urine Glucose (UA) Negative (Negative) 06/02/20 11:47 Urine Ketones Negative (Negative) 06/02/20 11:47 Urine Blood 1+ (Negative) H 06/02/20 11:47 Urine Nitrite Negative (Negative) 06/02/20 11:47 Urine Bilirubin Negative (Negative) 06/02/20 11:47 Urine Urobilinogen Negative (Negative) 06/02/20 11:47 Ur Leukocyte Esterase Negative (Negative) 06/02/20 11:47 Urine WBC (Auto) 0 /hpf (0-5) 06/02/20 11:47 Urine RBC (Auto) 5-10 /hpf (0-4) H 06/02/20 11:47 U Hyaline Cast (Auto) 0 /lpf (0-5) 06/02/20 11:47 U Epithel Cells (Auto) 0-5 /lpf (0-5) 06/02/20 11:47 Urine Bacteria (Auto) Negative (Negative) 06/02/20 11:47 COVID-19 [facility] 06/02/20 12:48 SARS-CoV-2, RNA, NAAT NEGATIVE (NEGATIVE) 06/02/20 12:48 Diagnostic Findings EKG 06/02/20: Sinus tachycardia with PACs. 113 bpm. IRBBB. T-wave inversion in anteroseptal leads. EKG 06/03/20: Normal sinus rhythm at 87 bpm. IRBBB. T-wave inversion in anteroseptal leads. Echo 06/04/20: Normal LV size with hyperdynamic systolic function. EF >70%. No regional wall motion abnormalities. Mild LVH. Grade I diastolic dysfunction. Aortic valve sclerosis with significant stenosis. Mild AI. Mild MR. Telemetry: Sinus rhythm with ectopy. At 1:52 am she had an episode of Type 2 AV block with 2:1 AV conduction lasting approximately 15 seconds. PG Care Time/CCT Total # of Minutes Spent Total Time Spent with Patient: Total time spent is greater than 50% in coordination of care (as documented) at patient's floor/unit and/or counseling patient: Coding Level of Care Code 54390 Initial Inpt Care Lvl 3 Diagnoses AV block, 2nd degree I44.1 Abnormal ECG R94.31
--- NOTE | 2020-06-04 14:15 | Hospitalist Progress Note ---
Date of Service June 04, 2020 Assessment & Plan (1) Swollen throat: Secondary to right sided neck mass, malignancy based on imaging with CT of the neck and CT angiogram of the chest Recently had po decadron dose cut down to 4mg daily from 8mg, suspect worsening inflammation given recent Keytruda treatment, XRT Presented with impending airway compromise, SOB, trouble swallowing Now much improved on high dose IV Decadron-no need for transfer as per pt's discussion with her primary Oncologist at [place] unless SOB worsens - continue on Decadron 6 mg IV q8hr for now plan to transition to Decadron 8 mg p.o. once daily upon discharge -Tolerating full liquids diet-advance diet to pured, continue boost supplements -DC IV fluids -Follows with [facility], Dr. Preethi Abreu -Request placed to have CT scans from here get transferred to [facility] for comparison -discussed code status with pt and at length--> patient has made final decision that she would not want another tracheostomy or intubation if her airway becomes compromised again in the future (2) Recurrent thyroid cancer: Anaplastic Undergoing Keytruda infusions q3 weeks for the last 15 weeks, s/p XRT 1 month ago as above (3) Internal jugular vein thrombosis: Recently diagnosed at [facility] 2 weeks ago and was on Lovenox x 10 days and then transitioned to Eliquis recently Has swelling in right side of neck and some in face which reports is improved from previous -continue ELiquis (4) Breath shortness: secondary to swelling in throat as above, no h/o asthma or lung issues CTA Chest neg for PE or PNA COVID-19 is negative No chest pain but with TWIs anterolat on ECG which was stable on repeat ECG Echocardiogram with preserved EF and no significant valvular disease trop neg Now resolved SOB with IV Decadron and improvement of airway obstruction She is ambulating the halls without dyspnea (5) Abnormal ECG: TWIs anterolat leads x2, trop negative on admission Not indicative of ischemia Echocardiogram without wall motion abnormalities and with preserved EF Appreciate cardiology consultation no further evaluation needed no h/o CAD, no chest pain (6) Elevated lactic acid level: likely secondary to tachypnea no evidence of sepsis (7) Hyponatremia: -NA 130 on admission,now improved to 134 with NS Can DC IV fluids -Follow with am labs (8) AV block, 2nd degree: With a brief, 15-second run of 2-1 second-degree AV block while sleeping on the night of 06/03 Appreciate cardiology consultation Echocardiogram with no structural abnormalities. No other blocks on ECG Most likely a Mobitz type I, but no way to tell with a 2-1 block at this point. Most likely related to increased vagal tone especially while sleeping Reduce metoprolol to 12.5 mg p.o. once daily Follow on telemetry (9) Brachial plexus injury, right: With atrophy of the right hand and weakness with wrist dorsiflexion and interosseous dorsi muscles Secondary to tumor encroaching on the brachial plexus on the right (10) DVT prophylaxis: - Sirisha salinas CODE: DNR/DNI, would not want emergency tracheostomy Dispo: Continued stay, but most likely will discharged home tomorrow Admission and Anticipated Discharge Date Admission Date: June 03, 2020 Subjective Patient reports her throat is feeling better, she is not having trouble swallowing for liquids diet or taking pills. She walked up and down the halls yesterday without any shortness of breath. She is moving her bowels yesterday, making urine. Denies chest pain, denies abdominal pain. Patient feels she needs 1 more day in the hospital to trial a pured diet She also tells me that she has made a final decision to be a DNI and not have any emergency tracheostomy performed if it came to that. Telemetry with a 15-second run of a 2-1 second-degree AV block overnight while patient was sleeping. Otherwise with normal sinus rhythm, PACs, rate 70s to 80s on telemetry. I discussed the case with cardiology. Review of Systems Review of Systems: All systems reviewed & are unremarkable except as noted in HPI & below Physical Exam Constitutional: WD/WN, vitals as above Eyes: + anicteric sclerae ENMT: Ears: no hearing impairment Nose: no external nose abnormality and no facial tenderness Mouth: + oropharynx abnormality (Large tongue, difficult to see posterior oropharynx but appears patent) Neck: + abnormal visual inspection (Focal swelling on right side of neck, woody to palpation, nontender) Respiratory: normal respiratory effort, lungs clear to auscultation Cardiovascular: RRR, no murmur, no edema Chest (Breasts): Chest: normal inspection of chest Gastrointestinal (Abdomen): normal bowel sounds, soft, nontender, no h epatosplenomegaly Musculoskeletal: Extremities: extremities normal to inspection; no cyanosis and no clubbing Skin: no rashes, warm and dry + ecchymosis (Left side of abdomen, no significant hematoma) Neurologic: moves all extremities, + focal motor deficit (Right hand and wrist with weakness with wrist dorsiflexion and weakness of dorsal interossei muscles and atrophy of the hand) and awake Psychiatric: A+Ox3, euthymic affect Lymphatic: no lymphedema Results & Data Results & Data ([facility]) Vital Signs (Past 12 Hours) Vital Signs Temp Pulse Pulse Resp BP Pulse Ox 06/04/20 11:28 36.7 C 93 H 20 123/69 96 06/04/20 08:00 80 06/04/20 07:08 36.6 C 82 18 148/75 H 96 06/04/20 02:40 36.4 C L 83 18 167/83 H 94 Laboratory Results 06/04/20 06/04/20 Range/Units 07:56 07:56 WBC 12.32 H (4.8-10.8) K/uL RBC 3.47 L (4.2-5.4) M/uL Hgb 11.4 L (12.0-16.0) g/dL Hct 32.8 L (37-47) % MCV 94.5 (80-100) fL MCH 32.9 (25-34) pg MCHC 34.8 (32-36) g/dL RDW Std Deviation 63.5 H (36.4-46.3) fL RDW Coeff of Jeison 18.3 H (11.5-14.5) % Plt Count 212 (130-400) K/uL MPV 7.7 (7.4-10.4) fL Sodium 134 L (136-145) mmol/L Potassium 3.5 (3.5-5.1) mmol/L Chloride 100 (98-107) mmol/L Carbon Dioxide 29 (21-32) mmol/L Anion Gap 5.0 (3-11) BUN 11 (7-18) mg/dl Creatinine 0.51 L (0.6-1.2) mg/dl Est Cr Clr Drug Dosing 77.7 ml/min Est GFR ( Amer) 110.6 Est GFR (Non-Af Amer) 95.4 BUN/Creatinine Ratio 21.1 H (10-20) Glucose 153 H (70-99) mg/dl Calcium 8.4 L (8.5-10.1) mg/dl Total Bilirubin 0.7 (0.2-1) mg/dl AST 14 L (15-37) U/L ALT 28 (12-78) U/L Alkaline Phosphatase 58 (45-117) U/L Total Protein 5.8 L (6.4-8.2) gm/dl Albumin 2.3 L (3.4-5.0) gm/dl Globulin 3.5 (2.5-4.0) gm/dl Albumin/Globulin Ratio 0.7 L (0.9-2) PG Care Time/CCT Total # of Minutes Spent Total Time Spent with Patient: Total time spent is greater than 50% in coordination of care (as documented) at patient's floor/unit and/or counseling patient: Coding Level of Care Code 96404 Subseq Hosp Care Lvl 3 Diagnoses Swollen throat R22.1 Recurrent thyroid cancer C73 Internal jugular vein thrombosis I82.C19 Breath shortness R06.02 Abnormal ECG R94.31 Elevated lactic acid level R79.89 Hyponatremia E87.1 AV block, 2nd degree I44.1 Brachial plexus injury, right S14.3XXA DVT prophylaxis Z29.9
[2020-06-04] MEDS: ATORVASTATIN 10 MG TAB PO SCH (20:16)
[2020-06-05] MEDS: DEXAMETHASONE SOD PHOSPHATE 6 MG in SYRINGE 0 ML IV SCH ×2 (05:00→11:02)
[2020-06-05] MEDS: LEVOTHYROXINE SODIUM 100 MCG TABLET PO SCH (06:11)
[2020-06-05] MEDS: APIXABAN 5 MG TABLET PO SCH (07:48)
[2020-06-05] MEDS: MULTIVITAMIN TAB PO SCH (07:49)
[2020-06-05] MEDS: CHECK FENTANYL PATCH PLACEMENT SCH (07:50)
[2020-06-05] MEDS: ASPIRIN 81 MG ECTAB PO SCH (07:50)
[2020-06-05] MEDS ORDERED: METOPROLOL SUCC 25MG EXT REL TAB PO SCH (09:00)
--- NOTE | 2020-06-05 09:47 | Cardiology Progress Note ---
Date of Service June 05, 2020 Assessment & Plan (1) AV block, 2nd degree: Telemetry monitoring has shown sinus rhythm with no further AV block and no significant pauses. Recommend continuing with reduced metoprolol dose. In the absence of symptoms or more definitive evidence of conduction system disease, no other intervention is necessary at this time. (2) Abnormal ECG: She remains asymptomatic with no anginal symptoms. No further ischemic wo rk-up recommended. Admission and Anticipated Discharge Date Admission Date: June 03, 2020 Supervising Physician Co-Signing Physician Notes ADDENDUM (Dr. Mata): Patient seen and examined. Agree with plan as outlined above by Ms. Jean Marie PA-C. Subjective Patient reports that she is feeling well this morning. She has been able to get up and ambulate with no shortness of breath. She denies chest pain. She denies lightheadedness or near-syncope. Physical Exam Physical Exam: Constitutional: Alert, oriented, in no acute distress HEENT: Head is atraumatic and normocephalic. EOMs intact. Sclera non-icteric. Face is symmetric. No perioral cyanosis. Mucous membranes moist Neck: Focal swelling of the right side of the neck, no appreciable JVD but difficult exam Pulmonary: Normal respiratory effort, clear to auscultation throughout Cardiac: Regular rate and rhythm, normal S1 and S2, no gallops, no rubs, 1/6 systolic murmur best heard at the right upper sternal border Extremities: No lower extremity edema. No clubbing or cyanosis. Pulses 2+ and symmetric Abdomen: Normal bowel sounds, soft, non-tender, no abdominal masses palpated Skin: Normal skin color, turgor, and pigmentation. No rash or skin lesions Neurological: Oriented to person, place, and time Results & Data ([facility]) Vital Signs (Past 12 Hours) Vital Signs Temp Pulse Pulse Resp BP Pulse Ox 06/05/20 09:01 80 06/05/20 07:38 98.1 F 81 18 125/69 95 06/05/20 04:00 97.5 F L 82 20 130/73 95 06/05/20 00:37 85 06/04/20 23:00 98.1 F 82 20 130/76 94 Diagnostic Findings Telemetry: Sinus rhythm. No significant pauses or AV block. PG Care Time/CCT Total # of Minutes Spent Total Time Spent with Patient: Total time spent is greater than 50% in coordination of care (as documented) at patient's floor/unit and/or counseling patient: Coding Level of Care Code 05169 Subseq Hosp Care Lvl 1 Diagnoses AV block, 2nd degree I44.1 Abnormal ECG R94.31
--- NOTE | 2020-06-05 14:17 | Discharge Summary ---
Date of Service June 05, 2020 Admission HPI Per Admitting Provider This is a 75-year-old female with PMHx of recurrent metastatic anaplastic thyroid cancer, history of PE, hyponatremia, nausea. Patient was initially diagnosed in 1991 and was in remission for a long time. This recurred in 2005 with a tumor. She follows with Dr. Preethi Abreu. oncologist at [facility]. She is currently undergoing chemotherapy at [facility]. It was discussed between the ER and [facility] regarding possible transfer of the patient but her she does not have any beds available at this point time. Patient reports that she woke up feeling short of breath, had difficulty with swallowing, felt increased fullness of her throat and came to the ER. She was able to eat tapioca pudding but had difficulty doing so. She lives at home with her . She has been tested for COVID which is negative, no fever sweats or chills. She reports feeling improvement with her breathing at this point time after receiving dexamethasone 10 mg IV in the ER. She does take Decadron 4 mg daily at home, unsure if she took this medication today. She took her thyroid medication and 2 other pills but cannot recall what they are. Principal Diagnosis Shortness of breath, airway obstruction, neck mass Discharge Exam Constitutional WD/WN, vitals as above Eyes + anicteric sclerae ENMT Nose: no external nose abnormality and no facial tenderness Neck + abnormal visual inspection (Focal swelling on right side of neck, woody to palpation, nontender) Respiratory normal respiratory effort, lungs clear to auscultation Cardiovascular RRR, no murmur, no edema Chest (Breasts) Chest: normal inspection of chest Gastrointestinal (Abdomen) normal bowel sounds, soft, nontender, no hepatosplenomegaly Musculoskeletal Extremities: extremities normal to inspection; no cyanosis and no clubbing Skin no rashes, warm and dry + wound (Left heel with 1 cm shallow ulcer, no erythema or drainage) Neurologic moves all extremities, + focal motor deficit (Right hand and wrist with weakness with wrist dorsiflexion and weakness of dorsal interossei muscles and atrophy of the hand) and awake Psychiatric A+Ox3, euthymic affect Lymphatic no lymphedema Discharge Data Allergies Allergy/AdvReac Type Severity Reaction Status Date / Time penicillin G Allergy Unknown . Verified 06/02/20 09:34 Consultations 06/02/20 12:16 ED Decision to Admit Stat 06/02/20 14:00 Consult Case Management - Discharge Planning Routine 06/02/20 16:18 Consult Health Information Management Stat 06/04/20 09:05 Consult Cardiology Routine Ordered Studies 06/02/20 09:18 CT angio chest PE protocol Stat CT soft tissue neck w con Stat Echocardiogram Chest x-ray Hospital Course (1) Swollen throat: Secondary to right sided neck mass, malignancy based on imaging with CT of the neck and CT angiogram of the chest Recently had po decadron dose cut down to 4mg daily from 8mg, suspect worsening inflammation given recent Keytruda treatment, XRT Presented with impending airway compromise, SOB, trouble swallowing Now much improved on high dose IV Decadron-no need for transfer as per pt's discussion with her primary Oncologist at [facility] unless SOB worsens -DC to home on Decadron 4 mg p.o. twice daily upon discharge as per recommendation of her oncologist -Tolerating pured diet and will continue this at home; continue boost supplements also at home -Treated with IV fluids which have since been discontinued -Follows with [facility], Dr. Preethi Abreu-has follow-up appointment on Monday -Request placed to have CT scans from here get transferred to [facility] for comparison -discussed code status with pt and at length--> patient has made final decision that she would not want another tracheostomy or intubation if her airway becomes compromised again in the future (2) Recurrent thyroid cancer: Anaplastic Undergoing Keytruda infusions q3 weeks for the last 15 weeks, s/p XRT 1 month ago as above (3) Internal jugular vein thrombosis: Recently diagnosed at [facility] 2 weeks ago and was on Lovenox x 10 days and then transitioned to Eliquis recently Has swelling in right side of neck and some in face which reports is improved from previous -continue ELiquis (4) Breath shortness: secondary to swelling in throat as above, no h/o asthma or lung issues-now completely resolved CTA Chest neg for PE or PNA COVID-19 is negative No chest pain but with TWIs anterolat on ECG which was stable on repeat ECG Echocardiogram with preserved EF and no significant valvular disease trop neg Now resolved SOB with IV Decadron and improvement of airway obstruction She is ambulating the halls without dyspnea (5) Abnormal ECG: TWIs anterolat leads x2, trop negative on admission Not indicative of ischemia Echocardiogram without wall motion abnormalities and with preserved EF Appreciate cardiology consultation no further evaluation needed no h/o CAD, no chest pain (6) Elevated lactic acid level: likely secondary to tachypnea no evidence of sepsis (7) Hyponatremia: -NA 130 on admission,now improved to 134 with NS Takes sodium chloride 1000 mg p.o. twice daily-patient forgot to tell us about t his until the day of discharge-she will continue on this at home upon discharge (8) AV block, 2nd degree: With a brief, 15-second run of 2-1 second-degree AV block while sleeping on the night of 06/03 Appreciate cardiology consultation Echocardiogram with no structural abnormalities. No other blocks on ECG Most likely a Mobitz type I, but no way to tell with a 2-1 block at this point. Most likely related to increased vagal tone especially while sleeping Reduced metoprolol to 12.5 mg p.o. once daily and had no further events after that (9) Brachial plexus injury, right: With atrophy of the right hand and weakness with wrist dorsiflexion and interosseous dorsi muscles Secondary to tumor encroaching on the brachial plexus on the right (10) Heel ulcer: Shallow left heel ulcer that started after wearing rubber croc shoes Advised offloading pressure at home with a pillow under the leg at night or when in bed and keeping it covered Has been using antiseptic spray on a daily (11) DVT prophylaxis: - Sirisha salinas CODE: DNR/DNI, would not want emergency tracheostomy Dispo: Stable for discharge to home Total Time Total Time Spent Total Time Spent (In Minutes): 35 minutes Total Time Includes: Examination of the Patient, Discharge Planning and Medication Reconciliation Discharge Plan Discharge Items Patient Disposition: Home - Self-Care Reason For Visit: NECK MASS, AIRWAY COMPROMISE Discharge Diagnosis: Shortness of breath, airway obstruction, neck mass Condition on Discharge: Good Activity: Resume your previous activity Non-emergency contact: Primary Care Provider and Oncologist Call non-emergency contact if: you have any medication questions and your symptoms worsen Follow-up/Referrals: Janes Melendez MD [Primary Care Provider] - (Follow-up within 1 to 2 weeks after discharge.) Diet: Regular Diet Texture: Pureed (blended smooth) Addtl Attending Provider Instructions: You were treated with IV Decadron for the swelling in your throat which helped your shortness of breath. Please continue on Decadron 4 mg by mouth twice a day after discharge and follow-up with your oncologist as scheduled on Monday. You did have a brief episode of a second degree heart block on the heart monitor here and the speech pathology supervisor recommended decreasing your metoprolol dose to 12.5 mg once daily. Pending Studies at Discharge: No Stand-Alone Forms: My [facility] Medications and DC Order Prescriptions: New sodium chloride 1 gram tablet 1,000 mg PO BID Qty: 60 RF: 0 Continued Eliquis 5 mg tablet 5 mg PO BID RF: 0 fentanyl 50 mcg/hr patch 72 hour 50 mcg transdermal .Q3DAYS RF: 0 multivitamin Tablet 1 tab PO DAILY RF: 0 atorvastatin 10 mg tablet 10 mg PO HS RF: 0 aspirin [Aspir-81] 81 mg Tablet,Delayed Release (Dr/Ec) 81 mg PO 3XWK RF: 0 levothyroxine 100 mcg tablet 100 mcg PO DAILY RF: 0 Changed dexamethasone 4 mg tablet 4 mg PO BID Qty: 60 RF: 0 metoprolol succinate 25 mg tablet extended release 24 hr 12.5 mg PO DAILY Qty: 15 RF: 0 Discharge Orders: Discharge Order (Routine); Ordered 06/05/20 Ordered By: Anali Daley Admission Data Admit Date/Time: 06/03/20 13:31 Attending Provider: Anali Daley Admit Provider: Kavon Martin Primary Care Provider: Janes Melendez Other Providers: Kavon Martin ; Margarito Mata Coding Level of Care Code D/C Day Management >30 mins Diagnoses Swollen throat R22.1 Recurrent thyroid cancer C73 Internal jugular vein thrombosis I82.C19 Breath shortness R06.02 Abnormal ECG R94.31 Elevated lactic acid level R79.89 Hyponatremia E87.1 AV block, 2nd degree I44.1 Brachial plexus injury, right S14.3XXA Heel ulcer L97.409 DVT prophylaxis Z29.9
== END 2020-06-05 15:31 | disposition home or self-care (01) | DRG 644 ==
LOC: ED 08:58 → 2N 08:58 → SUATTDRO 13:45 → 2N 16:03

== ENCOUNTER 2020-06-25 08:12 | Inpatient (IN) ==
--- NOTE | 2020-06-25 08:22 | Emergency Department Note ---
Impression & Plan SOB (shortness of breath), Primary cancer of thyroid with metastasis to other site, Abnormal ECG, Brachial plexus injury, right, Elevated troponin ED Provider Note INFORMANT: Patient ED PROVIDER(S): Hank Hi MD CHIEF COMPLAINT: SOB PLAN: Disposition: Admitted Condition: Good MEDICAL DECISION MAKING: Patient complains of shortness of breath and congestion. She has a history of thyroid cancer recurrence and metastases. She previously was admitted and did well with IV Decadron. She is currently taking 4 mg of Decadron daily but did not take it today. An IV was established. EKG performed. The patient was given a dose of IV Decadron, [address] imaging ordered for the neck. CT imaging reveals findings consistent with her known disease as well as some airway edema. This was about similar to her presenting CT from last time. She was reassessed and was feeling better. She was requiring some supplemental oxygen as her oxygen saturations were borderline low. The patient and note that her she is stopping treatment for the cancer. The patient states that she does not want advanced ventilatory support or surgery. I consulted with internal medicine, Dr. Greenberg for admission. I also discussed the case with the patient's oncologist at [facility], Dr. ybarra who noted that palliative care was discussed after her last hospitalization and hospice was recommended. She agreed with the steroids and also recommended MR imaging to evaluate if any palliative she would be appropriate for the spine. I did pass this information on to Dr. Greenberg. The patient was admitted for further management. Triage Nursing notes reviewed and agree them. Additional history obtained from Prior medical records reviewed regarding last ER visit and hospital admission. Patient initially requested transfer to [facility] however after IV Decadron she felt significantly better and transfer was negated. Vital Signs: reviewed and remarkable for mild tachycardia Differential diagnosis: Complication of malignancy, reactive airway disease, pneumonia, pneumothorax, COPD, CHF, infections, cardiac ischemia, pulmonary embolism, musculoskeletal, gastrointestinal, as well as other pathologies. Diagnostics interpreted by me: ECG: Twelve-lead ECG reveals sinus tachycardia at [address] abnormality. PVCs present. No ST elevation or depression. Normal axis and QR S. Cardiac Monitoring: Cardiac monitoring ordered by me: The patient was placed on continuous cardiac monitoring and observed. It revealed a tachycardia at 108 beats per minute without ectopy or evidence of dysrhythmia. Imaging studies: Chest x-ray shows right-sided atelectasis. No infiltrates or effusion. CT imaging of the neck reveals no metastatic disease as well as some mild airway edema. Malignancy appears to affect the trachea. Overall similar to last CT imaging. I refer you to the EMR for further details. Consultation(s): [facility] service, Dr. Yari Sanchez oncology, Dr. ybarra HPI: The patient is a 75 year old female with PMHx of recurrent metastatic anaplastic thyroid cancer, on anticoagulation, prior tracheostomy, history of PE, hyponatremia, who presents to the Emergency Room with complaints of shortness of breath and congestion. This started a few days ago and is worsening. The patient also notes the following associated symptoms, weakness, fatigue and some difficulty breathing. The patient has found no relieving factors. Current pain is rated as 0/10. Patient was recently admitted because of neck swelling and shortness of breath. She was treated with IV steroids. Pt denies LOC, headache, fevers, chills, diaphoresis, visual changes, chest pain, nausea, vomiting, abdominal pain, back pain, melena, hematochezia, urinary symptoms, numbness, lymphadenopathy, rash, or other complaints. ROS: See above HPI for pertinent positives & negatives. A total of 10 systems reviewed and were otherwise negative. PAST MEDICAL HISTORY:See Below, thyroid cancer, paralysis in the right upper e xtremity PAST SURGICAL HISTORY:See Below, tracheostomy, thyroid and parathyroid resection. FAMILY HISTORY:See Below SOCIAL HISTORY:See Below, HOME MEDICATIONS:See Below ALLERGIES:See Below VITALS:See Below PHYSICAL EXAMINATION: GENERAL: Awake, tired-appearing, in no distress HENT: Normocephalic, atraumatic. Oropharynx unremarkable. EYES: Normal conjunctiva. Sclera non-icteric. NECK: Inspection reveals some mild swelling on the right side which states is from her tumor. Non-tender. No nuchal rigidity. Hoarse voice which is chronic from vocal cord paralysis per however there is no audible stridor. RESPIRATORY: Diminished breath sounds but otherwise clear to auscultation. No wheezes. No rales. Normal respiratory effort. CARDIAC: Tachycardic rate. Normal rhythm. No murmurs. No rubs. Extremities warm and well perfused. Pulses equal. No JVD. GI: Soft, non-distended. No tenderness to palpation. No rebound or guarding. No masses. RECTAL: Deferred. MUSCULOSKELETAL: Atraumatic. Chest examination reveals no tenderness. The back is symmetrical on inspection without obvious abnormality. There is no CVA tenderness to palpation. No joint edema. LOWER EXTREMITIES: Calves are equal size bilaterally and non-tender. 1+ edema. No discoloration. NEURO: Normal sensorium. Paralysis in the right upper extremity which patient and states is chronic from her tumor, otherwise no sensory or motor deficits noted. SKIN: No rash or jaundice noted. 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 Status post left neck dissection 12/31/2014 4 of 26 nodes positive 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 Status post right neck compartment dissection 12/23/2015 revealing recurrent papillary carcinoma of the thyroid 0 of 7 nodes positive Status post radiation therapy treatments stopped on 03/04/2016 with one remaining fraction, received 6400 cGy combined with chemotherapy." On 01/05/16 10:43 Teresa Meier wrote "Thyroid carcinoma in 1991 Status post thyroidectomy followed by radioactive iodine Development of a left neck mass October 2014 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 Status post left neck dissection 12/31/2014 4 of 26 nodes positive 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 Status post right neck compartment dissection 12/23/2015 revealing recurrent papillary carcinoma of the thyroid 0 of 7 nodes positive " Tracheostomy complication Family History Other Family history non-contributory Social History Smoking Status: Never smoker Hx Alcohol Use: No Hx Substance Use: No Preferred Language: Croatian Communication Ability: Effective 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 Verified 06/25/20 09:09 Home Meds Home Medications Medication Instructions Recorded Confirmed aspirin [Aspir-81] 81 mg PO 3XWK 09/02/19 06/25/20 atorvastatin 10 mg PO HS 09/02/19 06/25/20 levothyroxine 100 mcg PO DAILY 09/02/19 06/25/20 multivitamin 1 tab PO DAILY 09/02/19 06/25/20 Eliquis 5 mg PO BID 06/02/20 06/25/20 fentanyl 50 mcg TRANSDERMAL .Q3DAYS 06/02/20 06/25/20 Previous Rx's Medication Instructions Recorded dexamethasone 4 mg PO BID #60 tab 06/05/20 metoprolol succinate 12.5 mg PO DAILY #15 tab 06/05/20 Results & Data (ED) Vital Signs Vital Signs - 24 hr 06/25/20 08:19 06/25/20 08:30 06/25/20 08:33 Temperature 36.8 C Temperature Source Oral Pulse Rate 115 H 115 H Pulse Rate from SpO2 Sensor 111 H 112 H Respiratory Rate 23 28 H Respiratory Effort / Characteristics Non-Labored Spontaneous Respiratory Depth Normal Respiratory Pattern Regular Blood Pressure 163/99 H 151/91 H Blood Pressure Mean 122 124 Pulse Oximetry 94 95 95 Oxygen Delivery Method Room Air Room Air Oxygen Flow Rate Sepsis Recent Fever Within 48 Hours No Sepsis New/Unexplained Change in Mental Status No Sepsis Action Taken by Nursing Physician Notified Oxygen Flow Rate - Titration Pulse Oximetry Post Tiitration 06/25/20 08:45 06/25/20 09:00 06/25/20 10:03 Temperature Temperature Source Pulse Rate 122 H 121 H 125 H Pulse Rate from SpO2 Sensor 117 H 120 H Respiratory Rate 29 H 26 H 28 H Respiratory Effort / Characteristics Respiratory Depth Respiratory Pattern Blood Pressure 146/89 H 162/84 H 157/93 H Blood Pressure Mean 114 111 120 Pulse Oximetry 94 91 Oxygen Delivery Method Oxygen Flow Rate Sepsis Recent Fever Within 48 Hours Sepsis New/Unexplained Change in Mental Status Sepsis Action Taken by Nursing Oxygen Flow Rate - Titration Pulse Oximetry Post Tiitration 06/25/20 10:15 06/25/20 10:24 06/25/20 10:28 Temperature Temperature Source Pulse Rate 121 H Pulse Rate from SpO2 Sensor 121 H Respiratory Rate 18 Respiratory Effort / Characteristics Respiratory Depth Respiratory Pattern Blood Pressure 155/83 H Blood Pressure Mean 104 Pulse Oximetry 90 89 L 88 L Oxygen Delivery Method Room Air Room Air Nasal Cannula Oxygen Flow Rate Sepsis Recent Fever Within 48 Hours Sepsis New/Unexplained Change in Mental Status Sepsis Action Taken by Nursing Oxygen Flow Rate - Titration 2 Pulse Oximetry Post Tiitration 94 06/25/20 10:30 06/25/20 10:45 06/25/20 11:00 Temperature Temperature Source Pulse Rate 115 H 117 H 115 H Pulse Rate from SpO2 Sensor 112 H 119 H 116 H Respiratory Rate 18 17 17 Respiratory Effort / Characteristics Respiratory Depth Respiratory Pattern Blood Pressure 145/88 H 147/88 H 150/85 H Blood Pressure Mean 112 103 104 Pulse Oximetry 95 94 94 Oxygen Delivery Method Nasal Cannula Nasal Cannula Nasal Cannula Oxygen Flow Rate 2 2 2 Sepsis Recent Fever Within 48 Hours Sepsis New/Unexplained Change in Mental Status Sepsis Action Taken by Nursing Oxygen Flow Rate - Titration Pulse Oximetry Post Tiitration 06/25/20 11:15 06/25/20 11:30 Temperature Temperature Source Pulse Rate 116 H 117 H Pulse Rate from SpO2 Sensor 116 H 111 H Respiratory Rate 14 18 Respiratory Effort / Characteristics Respiratory Depth Respiratory Pattern Blood Pressure 147/86 H 156/90 H Blood Pressure Mean 106 122 Pulse Oximetry 94 94 Oxygen Delivery Method Nasal Cannula Nasal Cannula Oxygen Flow Rate 2 2 Sepsis Recent Fever Within 48 Hours Sepsis New/Unexplained Change in Mental Status Sepsis Action Taken by Nursing Oxygen Flow Rate - Titration Pulse Oximetry Post Tiitration Laboratory Data Result diagrams: 06/25/20 09:28 06/25/20 09:28 Lab Results 06/25/20 06/25/20 06/25/20 Range/Units 09:28 09:28 10:00 WBC 9.51 (4.8-10.8) K/uL RBC 3.50 L (4.2-5.4) M/uL Hgb 11.9 L (12.0-16.0) g/dL Hct 33.0 L (37-47) % MCV 94.3 (80-100) fL MCH 34.0 (25-34) pg MCHC 36.1 H (32-36) g/dL RDW Std Deviation 61.2 H (36.4-46.3) fL RDW Coeff of Jeison 17.8 H (11.5-14.5) % Plt Count 191 (130-400) K/uL MPV 8.6 (7.4-10.4) fL Immature Gran % (Auto) 2.3 % Neut % (Auto) 87.1 % Lymph % (Auto) 8.0 % [place] % (Auto) 2.4 % Eos % (Auto) 0.1 % Baso % (Auto) 0.1 % Neut # (Auto) 8.28 H (1.4-6.5) K/uL Lymph # (Auto) 0.76 L (1.2-3.4) K/uL [place] # (Auto) 0.23 (0.11-0.59) K/uL Eos # (Auto) 0.01 (0-0.5) K/uL Baso # (Auto) 0.01 (0-0.2) K/uL Immature Gran # (Auto) 0.22 H (0.00-0.02) K/uL Absolute Nucleated RBC 0.06 H (0-0) K/uL Nucleated RBC % (auto) 0.6 % Polychromasia 1+ Basophilic Stippling 1+ Spherocytes 1+ Sodium 132 L (136-145) mmol/L Potassium 2.9 L (3.5-5.1) mmol/L Chloride 93 L (98-107) mmol/L Carbon Dioxide 33 H (21-32) mmol/L Anion Gap 6.0 (3-11) BUN 16 (7-18) mg/dl Creatinine 0.56 L (0.6-1.2) mg/dl Est Cr Clr Drug Dosing 70.8 ml/min Est GFR ( Amer) 107.2 Est GFR (Non-Af Amer) 92.5 BUN/Creatinine Ratio 29.1 H (10-20) Glucose 138 H (70-99) mg/dl Calcium 8.7 (8.5-10.1) mg/dl Magnesium 1.6 L (1.8-2.4) mg/dl Total Bilirubin 1.4 H (0.2-1) mg/dl AST 25 (15-37) U/L ALT 62 (12-78) U/L Alkaline Phosphatase 101 (45-117) U/L Troponin I 0.077 H* (0-0.045) ng/ml NT-Pro-B Natriuret Pep 250 (0-900) pg/ml Total Protein 5.8 L (6.4-8.2) gm/dl Albumin 2.4 L (3.4-5.0) gm/dl Globulin 3.4 (2.5-4.0) gm/dl Albumin/Globulin Ratio 0.7 L (0.9-2) TSH 0.184 L (0.300-4.500) uIu/ml Free T4 1.44 (0.8-1.6) ng/dl Urine Color Yellow Urine Appearance Cloudy A (Clear) Urine pH 8.0 H (4.5-7.5) Ur Specific [place] 1.014 (1.000-1.030) Urine Protein Negative (Negative) Urine Glucose (UA) Negative (Negative) Urine Ketones Negative (Negative) Urine Blood Trace H (Negative) Urine Nitrite Negative (Negative) Urine Bilirubin Negative (Negative) Urine Urobilinogen Negative (Negative) Ur Leukocyte Esterase Negative (Negative) Urine WBC (Auto) 1-5 (0-5) /hpf Urine RBC (Auto) 0-4 (0-4) /hpf U Hyaline Cast (Auto) 1-5 (0-5) /lpf U Epithel Cells (Auto) >30 H (0-5) /lpf Urine Bacteria (Auto) Negative (Negative) Ur Renal Epithelial Cell Not Reportable Urine Mucus Present A (None Prsent) Administered Medications Potassium Chloride (K Jose / Wtr) 10 meq in 100 mls @ 100 mls/hr IV ONE STA Stop: 06/25/20 14:21 Last Admin: 06/25/20 13:31 Dose: 100 mls/hr Documented by: [id number] Discontinued Medications Dexamethasone (Dexamethasone Sod Inj 10 Mg/Ml Vial) 10 mg IV NOW ONE Stop: 06/25/20 08:35 Last Admin: 06/25/20 09:22 Dose: 10 mg Documented by: [id number] Discharge Plan Visit Data Chief Complaint: Illness Stated Complaint: nasal, throat/ congestion ED Provider: Hank Hi Discharge Problem: SOB (shortness of breath), Primary cancer of thyroid with metastasis to other site, Abnormal ECG, Brachial plexus injury, right, Elevated troponin Forms Stand Alone Forms: My [facility] Prescriptions Prescriptions: No Action Eliquis 5 mg tablet 5 mg PO BID RF: 0 fentanyl 50 mcg/hr patch 72 hour 50 mcg transdermal .Q3DAYS RF: 0 dexamethasone 4 mg tablet 4 mg PO BID Qty: 60 RF: 0 metoprolol succinate 25 mg tablet extended release 24 hr 12.5 mg PO DAILY Qty: 15 RF: 0 multivitamin Tablet 1 tab PO DAILY RF: 0 atorvastatin 10 mg tablet 10 mg PO HS RF: 0 aspirin [Aspir-81] 81 mg Tablet,Delayed Release (Dr/Ec) 81 mg PO 3XWK RF: 0 levothyroxine 100 mcg tablet 100 mcg PO DAILY RF: 0 Referrals Referrals: Janes Melendez MD [Primary Care Provider] -
[2020-06-25] MEDS ORDERED: DEXAMETHASONE SOD INJ 10 MG/ML VIAL IV ONE (08:34)
--- NOTE | 2020-06-25 08:53 | XRay Report ---
XR chest 1V portable CLINICAL HISTORY: weakness COMPARISON STUDY: 06/02/2020 FINDINGS: The heart is the upper limits of normal in size. There is no failure. There are linear opac ities the right lung base, likely representing subsegmental atelectasis. There is minor left basilar atelectasis.[ IMPRESSION: Progressive linear opacities the right lung base, likely representing subsegmental atelec tasis. ACT 112: Negative or not required by law. Electronically signed by: Dieudonne Maciel M.D. 06/25/2020 8:52 AM
--- NOTE | 2020-06-25 10:07 | CT Scan Report ---
CT soft tissue neck wo con HISTORY: 75 years-old Female SOB, hx of thyroid CA acute shortness of breath. Dysphasia with history of thyroid cancer. COMPARISON: CT soft tissue neck 06/02/2020 TECHNIQUE: Multiple axial CT images of the soft tissues of the neck were obtained without the use of IV contrast. A dose lowering technique was used consistent with the principals of RAFITA. FINDINGS: Business Attorney localizer images, there is right hemidiaphragm elevation with linear right lung base consolidat ion. Prior bilateral lens replacement. No acute abnormality identified within the imaged intracranial structures. Study is limited without the use of IV contrast. As a prominent right upper paratracheal lymph node, 9 mm. Mild biapical pleural-parenchymal scarring without pneumothorax. There are a few u nchanged tiny nodules of the left lung apex measuring up to 2 mm. No acute fracture. Multilevel degen erative changes of the cervical spine. Mastoid air cells are clear. Osseous erosion involving the rig ht transverse process of C7 redemonstrated. Infiltrative mass of the anterior right lower neck in the region of the scalene muscles redemonstrate d which measures approximately 5.4 x 2.8 cm, previously measured at 5.2 x 2.9 cm. The vascular involv ement described on comparison is not well assessed without the use of IV contrast. Irregular mass in the right thyroidectomy bed measuring 3.2 x 2.5 cm previously measured 2.5 x 2.2 cm, now measuring 2. 5 x 3.2 cm. Layering secretions are noted within the airway. There is mild supraglottic edema redemon strated with soft tissue thickening and mild medial deviation of the left vocal fold. The amount of e timmy has slightly decreased from comparison. There is a least mild to moderate supraglottic narrowing . There is irregularity involving the right lateral wall of the infraglottic airway with adjacent sabrina gical clips on image 257 series 3 with mild associated tracheal narrowing. Pharyngeal infiltration re demonstrated. IMPRESSION: 1. Limited exam without the use of IV contrast. 2. Infiltrative soft tissue mass within the expected location of the right scalene muscles redemonstr ated measuring over 5 cm. The previously described vascular involvement is not well evaluated without the use of IV contrast. Erosion of the right C7 transverse process redemonstrated. This finding in c onjunction with an infiltrative soft tissue mass of the right thyroidectomy bed is suggestive of recu rrent thyroid carcinoma. 3. There is mild tracheal narrowing just above the thoracic inlet with irregularity of the right late ral tracheal wall at this level possibly reflective of erosion of the soft tissue mass. 4. Supraglottic edema results in at least mild to moderate supraglottic narrowing. The degree of shalom a appears similar to slightly decreased from comparison. ACT 112: Negative or not required by law. The above report was generated using voice recognition software. It may contain grammatical, syntax o r spelling errors. Electronically signed by: Cecil Hui M.D. 06/25/2020 10:05 AM
[2020-06-25 10:09] LABS: Albumin Level 2.4 gm/dl (3.4-5.0); BUN Creatinine Ratio 29.1 (10-20); Calcium 8.7 mg/dl (8.5-10.1); Creatinine Clr Calc Pharmacy 70.8 ml/min; Est GFR (African American) 107.2; Est GFR (Non-African American) 92.5; Magnesium 1.6 mg/dl (1.8-2.4); Potassium 2.9 mmol/L (3.5-5.1)
[2020-06-25 10:19] LABS: Appearance Urine Cloudy (Clear); Bacteria Urine Automated Negative (Negative); Bilirubin Urine Negative (Negative); Blood Urine Trace (Negative); Color Urine Yellow; Epithelial Cell Urine Auto >30 /lpf (0-5); Glucose Urine UA Negative (Negative); Ketones Urine Negative (Negative); Leukocyte Esterase Urine Negative (Negative); Nitrite Urine Negative (Negative); Specific Gravity Urine 1.014 (1.000-1.030); Urobilinogen Urine Negative (Negative)
[2020-06-25 10:34] LABS: Mucus Urine Present (None Prsent); Protein Urine Negative (Negative); Sulfosalicylic Acid Urine Negative (Negative)
[2020-06-25 10:34] LABS: Albumin Globulin Ratio 0.7 (0.9-2); Bilirubin,Total 1.4 mg/dl (0.2-1); Globulin 3.4 gm/dl (2.5-4.0); Thyroid Stimulating Hormone 0.184 uIu/ml (0.300-4.500); Total Protein 5.8 gm/dl (6.4-8.2); Troponin I 0.077 ng/ml (0-0.045)
[2020-06-25 10:35] LABS: RBC Urine Automated 0-4 /hpf (0-4)
[2020-06-25 10:38] LABS: Hemoglobin 11.9 g/dL (12.0-16.0); Mean Corpuscular Hgb Conc 36.1 g/dL (32-36); Mean Corpuscular Volume 94.3 fL (80-100); Mean Platelet Volume 8.6 fL (7.4-10.4); Nucleated RBC # (auto) 0.06 K/uL (0-0); Nucleated RBC % (auto) 0.6 %; Platelet Count 191 K/uL (130-400); RDW Coefficient of Variation 17.8 % (11.5-14.5); RDW Standard Deviation 61.2 fL (36.4-46.3); White Blood Count 9.51 K/uL (4.8-10.8)
[2020-06-25 10:55] LABS: Basophilic Stippling 1+; Basophils # (auto) 0.01 K/uL (0-0.2); Basophils % (auto) 0.1 %; Eosinophils # (auto) 0.01 K/uL (0-0.5); Eosinophils % (auto) 0.1 %; Immature Granulocytes # (auto) 0.22 K/uL (0.00-0.02); Immature Granulocytes % (auto) 2.3 %; Lymphocytes # (auto) 0.76 K/uL (1.2-3.4); Monocytes # (auto) 0.23 K/uL (0.11-0.59); Monocytes % (auto) 2.4 %; Neutrophils # (auto) 8.28 K/uL (1.4-6.5); Neutrophils % (auto) 87.1 %; Polychromasia 1+; Spherocytes 1+
[2020-06-25 11:03] LABS: T4 Free Thyroxine 1.44 ng/dl (0.8-1.6)
[2020-06-25] MEDS ORDERED: POTASSIUM CHLORIDE / WTR 10 MEQ/100 ML PLCT IV STA (13:22)
--- NOTE | 2020-06-25 13:24 | History & Physical Report ---
Date of Service June 25, 2020 Assessment & Plan (1) Swollen throat: ?secondary to recent decrease dose of dexamethasone IV dexamethasone 10mg IV given in ER, continue IV 6 mg every 6 hourly pending improvement. We will likely need to go back on oral 4 mg twice daily as previously doing much better on this dose. (2) Primary cancer of thyroid with metastasis to other site: Patient adamant she would not want further radiation. Discussed whether she would like to discuss any further options with radiation oncology and she refused at this time. Discussed palliative care and both her and her feel this is a good idea as they need more support at home. 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 Patient does not wish to have further radiation therapy. PT and OT eval's Consult palliative care (4) AV block, 2nd degree: Continue on lower dose of metoprolol from her last admission Monitor on telemetry (5) Internal jugular vein thrombosis: Continue eliquis 5mg PO BID (6) Hypokalemia: KCl 10 meq IV now KCl 20 meq PO elix NSS + 40 meq KCl @ 100 ml/hr Replace Mg BMP with AM labs (7) Hyponatremia: NSS as above (8) Brachial plexus injury, right: Notable contractures right upper extremity (9) Sacral pressure ulcer: Wound care nurse consult (10) Cellulitis of sacral region: Possible surrounding sacral ulcer, blanching erythema, not swollen or warm. Given prior anaphylaxis to penicillin will get wound/blood cultures and miguel area to see if getting larger prior to any antibiotics. (11) Pressure ulcer, heel, left, unstageable: Wound care nurse consult (12) DVT prophylaxis: Continue her usual Eliquis 5mg PO BID Admission and Anticipated Discharge Date Admission Date: 06/25/2020 History of Present Illness Chief Complaint: Increased phlegm production and swollen throat Primary Care Provider: Janes Melendez MD Keren Wood is a 75-year-old female with PMHx of recurrent metastatic anaplastic thyroid cancer, prior tracheostomy, internal jugular vein thrombosis who presents to the ER with shortness of breath, increased neck swelling and congestion. Patient was initially diagnosed in 1991 and was in remission for a long time. This recurred in 2005 with a tumor. She follows with Dr. Preethi Abreu. oncologist at [facility]. After her most recent admission here at the end of May she followed up with her oncologist and the patient and her note they are stopping the treatment for her cancer. Her current symptoms are very similar to her presentation on her last admission when she did well with IV Decadron. She has become increasingly more weak and there was some concern from her oncologist regarding steroid-induced myopathy and her Decadron was reduced from 4mg PO BID to daily for the last week. Since this time she has noticed slowly worsening neck swelling. Her notes at this time she has become so weak he is unable to take care of her at home in her current state. Allergies Allergy/AdvReac Type Severity Reaction Status Date / Time penicillin G Allergy Unknown . 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, right Encounter for attention to tracheostomy Internal jugular vein thrombosis Recurrent thyroid cancer "Thyroid carcinoma in 1991 Status post thyroidectomy followed by radioactive iodine Development of a left neck mass October 2014 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 Status post left neck dissection 12/31/2014 4 of 26 nodes positive 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 Status post right neck compartment dissection 12/23/2015 revealing recurrent papillary carcinoma of the thyroid 0 of 7 nodes positive Status post radiation therapy treatments stopped on 03/04/2016 with one remaining fraction, received 6400 cGy combined with chemotherapy." On 01/05/16 10:43 Teresa Meier wrote "Thyroid carcinoma in 1991 Status post thyroidectomy followed by radioactive iodine Development of a left neck mass October 2014 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 Status post left neck dissection 12/31/2014 4 of 26 nodes positive 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 Status post right neck compartment dissection 12/23/2015 revealing recurrent papillary carcinoma of the thyroid 0 of 7 nodes positive " Tracheostomy complication Family History Other Family history non-contributory Social History Smoking Status: Never smoker Hx Alcohol Use: Yes Alcohol type: hard liquor Hx Substance Use: No Preferred Language: Macedonian Communication Ability: Effective Machine Shop Supervisor Required: No Beliefs That Will Affect Care: None marital status: Current Living Situation: Spouse current occupational status: retired Feels Safe at Home: Yes Safety Concerns: Feels Safe At This Time Review of Systems Review of Systems: All systems reviewed & are unremarkable except as noted in HPI & below Gastrointestinal: + early satiety and + nausea; no abdominal pain, no belching, no heartburn, no vomiting, no dysphagia and no change in stools Physical Exam Constitutional: well developed and + frail appearing; + not well nourished and no acute distress ENMT: Bilateral swollen non-pitting head and neck b/l Neck: skin radiation changes over central neck Respiratory: able to speak in complete sentences (muted speech); no respiratory distress, no retractions, does not use accessory muscles and no stridor Auscultation: + rhonchi (anteriorly diffuse); no diminished lung sounds, no crackles and no wheezes Cardiovascular: Rate/Rhythm: regular rhythm and + tachycardic Heart Sounds: no murmur Gastrointestinal (Abdomen): Inspection/Auscultation: normal bowel sounds Percussion/Palpation: abdomen soft; abdomen nontender, no guarding and abdomen not rigid Skin: Stage 3 sacral ulcer with surrounding blanching erythema without warmth or swelling Unstageable left heel ulcer without cellulitic changes Neurologic: moves all extremities (very weak, minimal movements of b/l LE) and awake; not confused Psychiatric: A+Ox3, euthymic affect Results & Data Results & [facility] ([facility]) Vital Signs (Past 12 Hours) Vital Signs Temp Pulse Resp BP Pulse Ox 06/25/20 11:30 117 H 18 156/90 H 94 06/25/20 11:15 116 H 14 147/86 H 94 06/25/20 11:00 115 H 17 150/85 H 94 06/25/20 10:45 117 H 17 147/88 H 94 06/25/20 10:30 115 H 18 145/88 H 95 06/25/20 10:28 88 L 06/25/20 10:24 89 L 06/25/20 10:15 121 H 18 155/83 H 90 06/25/20 10:03 125 H 28 H 157/93 H 91 06/25/20 09:00 121 H 26 H 162/84 H 06/25/20 08:45 122 H 29 H 146/89 H 94 06/25/20 08:33 95 06/25/20 08:30 115 H 28 H 151/91 H 95 06/25/20 08:19 36.8 C 115 H 23 163/[address] soft tissue neck wo con IMPRESSION: 1. Limited exam without the use of IV contrast. 2. Infiltrative soft tissue mass within the expected location of the right scalene muscles redemonstrated measuring over 5 cm. The previously described vascular involvement is not well evaluated without the use of IV contrast. Erosion of the right C7 transverse process redemonstrated. This finding in conjunction with an infiltrative soft tissue mass of the right thyroidectomy bed is suggestive of recurrent thyroid carcinoma. 3. There is mild tracheal narrowing just above the thoracic inlet with irregularity of the right lateral tracheal wall at this level possibly reflective of erosion of the soft tissue mass. 4. Supraglottic edema results in at least mild to moderate supraglottic narrowing. The degree of edema appears similar to slightly decreased from comparison. XR chest 1V portable IMPRESSION: Progressive linear opacities the right lung base, likely representing subsegmental atelectasis. ECG Indication: tachycardia Rate (beats per minute): 116 Rhythm: sinus tachycardia Findings: + PAC and + PVC Comparison ECG Date: from (06/03/2020) Change: the following changes noted (PACs, PVCs now present) Code Status & VTE Plan Code Status DNR/DNI confirmed with patient and her VTE Prophylaxis Plan VTE Prophylaxis will be ordered: Yes PG Care Time/CCT Total # of Minutes Spent Total Time Spent with Patient: Total time spent is greater than 50% in email marketing coordinator rdination of care (as documented) at patient's floor/unit and/or counseling patient: Coding Level of Care Code 44438 Initial Inpt Care Lvl 3 Diagnoses Swollen throat R22.1 Primary cancer of thyroid with metastasis to other site C73 Generalized weakness R53.1 AV block, 2nd degree I44.1 Internal jugular vein thrombosis I82.C19 Hypokalemia E87.6 Hyponatremia E87.1 Brachial plexus injury, right S14.3XXA Sacral pressure ulcer L89.159 Cellulitis of sacral region L03.319 Pressure ulcer, heel, left, unstageable L89.620 DVT prophylaxis Z29.9
[2020-06-25] MEDS ORDERED: POTASSIUM CHLORIDE 20 MEQ/15 ML UDC PO ONE (15:54)
[2020-06-25] MEDS ORDERED: dexAMETHasone 6 MG in SYRINGE 0 ML IV SCH (16:00)
[2020-06-25] MEDS: MAGNESIUM SULFATE / D5W 1 GM/100 ML BAG IV SCH ×2 (16:41→19:31)
[2020-06-25] MEDS: CHECK FENTANYL PATCH PLACEMENT SCH (16:41)
[2020-06-25] MEDS: POTASSIUM CHLORIDE 40 MEQ in SODIUM CHLORIDE 0.9% 1000ML 1,000 ML IV SCH (16:43)
[2020-06-25] MEDS: dexAMETHasone 6 MG in SYRINGE 0 ML IV SCH (17:20)
[2020-06-25] MEDS: APIXABAN 5 MG TABLET PO SCH (20:28)
[2020-06-25] MEDS: ATORVASTATIN 10 MG TAB PO SCH (20:28)
--- NOTE | 2020-06-25 22:28 | Electrocardiogram Report ---
Test Reason : Blood Pressure : / mmHG Vent. Rate : 116 BPM Atrial Rate : 116 BPM P-R Int : 126 ms QRS Dur : 076 ms QT Int : 322 ms P-R-T Axes : 030 024 -14 degrees QTc Int : 447 ms Sinus tachycardia with occasional Premature ventricular complexes Premature atrial complexes Nonspecific ST and T wave abnormality Abnormal ECG When compared with ECG of 03-JUN-2020 13:55, Premature ventricular complexes are now Present Premature atrial complexes are now Present Reconfirmed by Bismark Camargo ([id number]) on 06/25/2020 10:28:46 PM Referred By: REFERRED SELF Confirmed By:Bismark Camargo
[2020-06-26] MEDS: dexAMETHasone 6 MG in SYRINGE 0 ML IV SCH ×4 (00:13→17:30)
[2020-06-26] MEDS: CHECK FENTANYL PATCH PLACEMENT SCH ×3 (00:50→15:35)
[2020-06-26] MEDS: POTASSIUM CHLORIDE 40 MEQ in SODIUM CHLORIDE 0.9% 1000ML 1,000 ML IV SCH ×2 (02:51→12:41)
[2020-06-26] MEDS: LEVOTHYROXINE SODIUM 100 MCG TABLET PO SCH (06:40)
[2020-06-26 07:46] LABS: Hematocrit (blood only) 32.5 % (37-47); Hemoglobin 11.2 g/dL (12.0-16.0); Mean Corpuscular Hgb Conc 34.5 g/dL (32-36); Mean Corpuscular Volume 95.9 fL (80-100); Mean Platelet Volume 8.2 fL (7.4-10.4); Platelet Count 207 K/uL (130-400); RDW Standard Deviation 63.9 fL (36.4-46.3); Red Blood Count 3.39 M/uL (4.2-5.4); White Blood Count 8.29 K/uL (4.8-10.8)
[2020-06-26 08:25] LABS: Albumin Globulin Ratio 0.6 (0.9-2); Albumin Level 2.2 gm/dl (3.4-5.0); BUN Creatinine Ratio 25.7 (10-20); Bilirubin,Total 1.2 mg/dl (0.2-1); Calcium 8.3 mg/dl (8.5-10.1); Creatinine Clr Calc Pharmacy 90.1 ml/min; Est GFR (African American) 116.1; Est GFR (Non-African American) 100.1; Globulin 3.5 gm/dl (2.5-4.0); Magnesium 2.1 mg/dl (1.8-2.4); Phosphorus 2.8 mg/dl (2.5-4.9); Potassium 4.1 mmol/L (3.5-5.1); Total Protein 5.7 gm/dl (6.4-8.2)
[2020-06-26] MEDS: ASPIRIN 81 MG ECTAB PO SCH (08:26)
[2020-06-26] MEDS: MULTIVITAMIN TAB PO SCH (08:26)
[2020-06-26] MEDS: METOPROLOL SUCC 25MG EXT REL TAB PO SCH (08:27)
[2020-06-26] MEDS: APIXABAN 5 MG TABLET PO SCH ×2 (08:27→20:57)
--- NOTE | 2020-06-26 17:22 | Hospitalist Progress Note ---
Date of Service June 26, 2020 Assessment & Plan (1) Swollen throat: Possible supraglottic edema/laryngeal edema. Secondary to recent decrease dose of dexamethasone vs worsening cancer. IV dexamethasone 10mg IV given in ER, continue IV 6 mg every 6 hourly pending improvement. We will likely need to go back on oral 4 mg twice daily as previously doing much better on this dose. - Stable today. Exploring hospice options. (2) Primary cancer of thyroid with metastasis to other site: Patient adamant she would not want further radiation. Discussed whether she would like to discuss any further options with radiation oncology and she refused at this time. Discussed palliative care and both her and her feel this is a good idea as they need more support at home. 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 Patient does not wish to have further radiation therapy. PT and OT eval's Consult palliative care (4) AV block, 2nd degree: Continue on lower dose of metoprolol from her last admission Monitor on telemetry (5) Internal jugular vein thrombosis: Continue eliquis 5mg PO BID (6) Hypokalemia: KCl 10 meq IV now KCl 20 meq PO elix NSS + 40 meq KCl @ 100 ml/hr Replace Mg BMP with AM labs -> Improved today. (7) Hyponatremia: NSS as above (8) Brachial plexus injury, right: Notable contractures right upper extremity (9) Sacral pressure ulcer: Wound care nurse consult (10) Cellulitis of sacral region: Possible surrounding sacral ulcer, blanching erythema, not swollen or warm. Given prior anaphylaxis to penicillin will get wound/blood cultures and miguel area to see if getting larger prior to any antibiotics. - Seems stable today. (11) Pressure ulcer, heel, left, unstageable: Wound care nurse consult (12) DVT prophylaxis: Continue her usual Eliquis 5mg PO BID Moderate protein-calorie malnutrition Admission and Anticipated Discharge Date Admission Date: June 25, 2020 Subjective Still with throat tightening. Reports no fevers/chills, chest pain, shortness of breath, abdominal pain, nausea, or vomiting. Physical Exam Constitutional: WD/WN, vitals as above Eyes: EOM intact bilaterally; no conjunctival abnormality ENMT: external ear and nose normal, oropharynx normal Neck: trachea midline, no thyromegaly + abnormal visual inspection (Redde deborah) Respiratory: normal respiratory effort, lungs clear to auscultation no respiratory distress Cardiovascular: RRR, no murmur, no edema Gastrointestinal (Abdomen): Inspection/Auscultation: abdomen normal to inspection; abdomen not distended Musculoskeletal: no cyanosis or clubbing, extremities motor strength 5/5 Skin: no rashes, warm and dry Neurologic: moves all extremities and awake Psychiatric: Orientation: alert, oriented to person and cooperative Results & Data Results & Data ([facility]) Vital Signs (Past 12 Hours) Vital Signs Temp Pulse Pulse Resp BP BP Pulse Ox 06/26/20 16:21 36.7 C 94 H 20 165/107 H 94 06/26/20 16:00 94 H 06/26/20 11:45 36.7 C 90 17 137/87 96 06/26/20 08:30 97 H 06/26/20 07:50 36.6 C 95 H 17 151/82 H 96 PG Care Time/CCT Total # of Minutes Spent Total Time Spent with Patient: Total time spent is greater than 50% in coordination of care (as documented) at patient's floor/unit and/or counseling patient: Coding Level of Care Code 49095 Subseq Hosp Care Lvl 2 Diagnoses Swollen throat R22.1 Primary cancer of thyroid with metastasis to other site C73 Generalized weakness R53.1 AV block, 2nd degree I44.1 Internal jugular vein thrombosis I82.C19 Hypokalemia E87.6 Hyponatremia E87.1 Brachial plexus injury, right S14.3XXA Sacral pressure ulcer L89.159 Cellulitis of sacral region L03.319 Pressure ulcer, heel, left, unstageable L89.620 DVT prophylaxis Z29.9
[2020-06-26] MEDS: ATORVASTATIN 10 MG TAB PO SCH (20:57)
[2020-06-27] MEDS: POTASSIUM CHLORIDE 40 MEQ in SODIUM CHLORIDE 0.9% 1000ML 1,000 ML IV SCH ×4 (00:09→20:57)
[2020-06-27] MEDS: dexAMETHasone 6 MG in SYRINGE 0 ML IV SCH ×5 (00:09→23:32)
[2020-06-27] MEDS: CHECK FENTANYL PATCH PLACEMENT SCH ×3 (00:16→16:00)
[2020-06-27] MEDS ORDERED: SCOPOLAMINE 1.5 MG TDSY TD ONE (01:11)
--- NOTE | 2020-06-27 01:16 | Communication Note ---
Date of Service: June 27, 2020 Scopolamine patch ordered to help with secretions. Resident Activity Tracking Resident Involvement: Fullerette Coverage Note Care Provided: Adult Hospital Medicine
[2020-06-27] MEDS: LEVOTHYROXINE SODIUM 100 MCG TABLET PO SCH (06:16)
[2020-06-27 07:28] LABS: Hemoglobin 11.3 g/dL (12.0-16.0); Mean Corpuscular Hemoglobin 33.9 pg (25-34); Mean Corpuscular Hgb Conc 35.3 g/dL (32-36); Mean Corpuscular Volume 96.1 fL (80-100); Mean Platelet Volume 8.6 fL (7.4-10.4); Platelet Count 218 K/uL (130-400); RDW Coefficient of Variation 18.3 % (11.5-14.5); RDW Standard Deviation 64.3 fL (36.4-46.3); Red Blood Count 3.33 M/uL (4.2-5.4); White Blood Count 8.71 K/uL (4.8-10.8)
[2020-06-27 08:03] LABS: Albumin Level 2.2 gm/dl (3.4-5.0); BUN Creatinine Ratio 28.3 (10-20); Calcium 8.5 mg/dl (8.5-10.1); Creatinine Clr Calc Pharmacy 88.1 ml/min; Est GFR (African American) 115.2; Est GFR (Non-African American) 99.4; Magnesium 1.8 mg/dl (1.8-2.4); Potassium 4.8 mmol/L (3.5-5.1)
[2020-06-27 08:14] LABS: Albumin Globulin Ratio 0.6 (0.9-2); Bilirubin,Total 1.4 mg/dl (0.2-1); Globulin 3.5 gm/dl (2.5-4.0); Phosphorus 2.3 mg/dl (2.5-4.9); Total Protein 5.7 gm/dl (6.4-8.2)
[2020-06-27] MEDS: METOPROLOL SUCC 25MG EXT REL TAB PO SCH ×3 (09:11→11:36)
[2020-06-27] MEDS: APIXABAN 5 MG TABLET PO SCH ×2 (09:11→20:19)
[2020-06-27] MEDS: MULTIVITAMIN TAB PO SCH (09:11)
[2020-06-27] MEDS: CHECK SCOPOLAMINE PATCH PLACEMENT SCH ×2 (09:12→16:00)
--- NOTE | 2020-06-27 10:50 | Palliative Care Consultation ---
Date of Consultation June 27, 2020 Assessment & Plan (1) Goals of care, counseling/discussion: This patient is a 75 year old female who presented to the [facility] with increased SOB, worsening neck swelling and congestion. Patient was diagnosed with metastatic anaplastic thyroid cancer in 1991, but was in remission for years. Re-currance of the cancer was in 2005. She is a patient of [place] 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 She has noticed a marked decline with her neck swelling and weakness. She has made the decision she no longer wants to pursue and options regarding radiation or chemotherapy. Palliative Care was consulted to discuss goals of care. -I met with the patient in room 260. Her daughter in law, Lorraine, was at the bedside. -Patient states that her swallowing and SOB feels better today. She was anxious earlier today, but nursing staff was able to calm her down and relax her breathing. -Large left anterior neck tumor, with erythema, no open areas noted with no oozing, etc. -We talked at length regarding hospice and its capabilities. Patient and , Juan, have been thinking about Hospice and she would like to pursue this option. -I completed a POLST form with her indicating DNR/DNI, HYDRODYNAMICIST, trial abx, and no artificial nutrition/hydration. -I did go down to the lobby to talk with her Juan, who also has good understanding and is receptive to administering medications for comfort. -We discussed private caregivers and they do have a list that has been provided. Three adult children live within minutes of them and will be assisting as well. -We will continue current medications, will make Ativan and Roxanol available PRN if needed. -[facility] is a [facility] at [facility] and their friend suggested [facility]. A referral was placed by Case management. -Planning for equipment delivery tomorrow or Monday morning, with discharge on Monday morning to home. -PPS: 30%. Likely patient has weeks to months of life expectancy. -Palliative will follow as needed. (2) Primary cancer of thyroid with metastasis to other site: (3) Swollen throat: (4) Sacral pressure ulcer: History of Present Illness Reason for Consultation: goals of care Requesting Physician: Dr. Greenberg Attending Physician: Jaylen Coffman History of Present Illness This patient is a 75 year old female who presented to the [facility] with increased SOB, worsening neck swelling and congestion. Patient was diagnosed with metastatic anaplastic thyroid cancer in 1991, but was in remission for years. Re-currance of the cancer was in 2005. She is a patient of [place]. Abreu, [place] [facility] who made comment of concern regarding steroid-induced myopathy. She has noticed a marked decline with her neck swelling and weakness. She has made the decision she no longer wants to pursue and options regarding radiation or chemotherapy. Palliative Care was consulted to discuss goals of care. Please see A/P for further details. Thank you kindly for involving palliative care. Allergies Allergy/AdvReac Type Severity Reaction Status Date / Time penicillin G Allergy Unknown . Verified 06/25/20 09:09 Home Medications Home Medications Medication Instructions Recorded Confirmed Type aspirin [Aspir-81] 81 mg PO 3XWK 09/02/19 06/25/20 History atorvastatin 10 mg PO HS 09/02/19 06/25/20 History levothyroxine 100 mcg PO DAILY 09/02/19 06/25/20 History multivitamin 1 tab PO DAILY 09/02/19 06/25/20 History Eliquis 5 mg PO BID 06/02/20 06/25/20 History fentanyl 50 mcg TRANSDERMAL .Q3DAYS 06/02/20 06/25/20 History dexamethasone 4 mg PO BID #60 tab 06/05/20 06/25/20 Rx metoprolol succinate 12.5 mg PO DAILY #15 tab 06/05/20 06/25/20 Rx Patient History Medical History (Updated 06/27/20 @ 10:50 by GERI Robison) Anaplastic carcinoma of thyroid Brachial plexus injury, right Encounter for attention to tracheostomy Goals of care, counseling/discussion Internal jugular vein thrombosis Recurrent thyroid cancer "Thyroid carcinoma in 1991 Status post thyroidectomy followed by radioactive iodine Development of a left neck mass October 2014 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 Status post left neck dissection 12/31/2014 4 of 26 nodes positive 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 Status post right neck compartment dissection 12/23/2015 revealing recurrent papillary carcinoma of the thyroid 0 of 7 nodes positive Status post radiation therapy treatments stopped on 03/04/2016 with one remaining fraction, received 6400 cGy combined with chemotherapy." On 01/05/16 10:43 Teresa Meier wrote "Thyroid carcinoma in 1991 Status post thyroidectomy followed by radioactive iodine Development of a left neck mass October 2014 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 Status post left neck dissection 12/31/2014 4 of 26 nodes positive 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 Status post right neck compartment dissection 12/23/2015 revealing recurrent papillary carcinoma of the thyroid 0 of 7 nodes positive " Tracheostomy complication Family History Other Family history non-contributory Social History Smoking Status: Never smoker Hx Alcohol Use: Yes Alcohol type: hard liquor Hx Substance Use: No Preferred Language: Greek Communication Ability: Effective Door Patcher Required: No Beliefs That Will Affect Care: None marital status: Current Living Situation: Spouse current occupational status: retired Feels Safe at Home: Yes Safety Concerns: Feels Safe At This Time Review of Systems Review of Systems: All systems reviewed & are unremarkable except as noted in HPI & below Physical Exam Constitutional: well developed, healthy appearing, cooperative and comfortable Neck: + anterior neck swelling, + submandibular swelling and + neck tender Thyroid: + thyroid asymmetrical, + thyroid mass and + thyroid tender Respiratory: normal respiratory effort, lungs clear to auscultation Cardiovascular: RRR, no murmur, no edema Gastrointestinal (Abdomen): normal bowel sounds, soft, nontender, no hepatosplenomegaly Skin: no rashes, warm and dry Psychiatric: A+Ox3, euthymic affect Lymphatic: + cervical lymphadenopathy Results & Data ([facility]) Vital Signs (Past 12 Hours) Vital Signs Temp Pulse Pulse Resp BP Pulse Ox 06/27/20 08:07 36.4 C L 98 H 18 147/96 H 95 06/27/20 02:48 36.7 C 92 H 23 157/90 H 94 06/27/20 02:14 108 H 28 H 185/105 H 91 06/27/20 00:20 96 H PG Care Time/CCT Total # of Minutes Spent Total Time Spent with Patient: Total time spent is greater than 50% in coordination of care (as documented) at patient's floor/unit and/or counseling patient: 100 Coding Level of Care Code 56190 Inpt Consult Level 4 Diagnoses Goals of care, counseling/discussion Z71.89 Primary cancer of thyroid with metastasis to other site C73 Swollen throat R22.1 Sacral pressure ulcer L89.159 Time Spent (min) 100 Time Spent Midlevel Total time spent 100 minutes with > 50% of that time spent assessing the patient, discussing goals of care with patient and family, completing a POLST form and collaborating with IDT, with symptom management needs being addressed as well.
[2020-06-27] MEDS ORDERED: MoRPHine SULFATE 5 MG/0.25 ML UDP PO PRN (13:17)
[2020-06-27] MEDS ORDERED: LORazepam 0.25 MG/0.5 ML VIAL IV PRN (13:17)
--- NOTE | 2020-06-27 20:05 | Hospitalist Progress Note ---
Date of Service June 27, 2020 Assessment & Plan (1) Swollen throat: Possible supraglottic edema/laryngeal edema. Secondary to recent decrease dose of dexamethasone vs worsening cancer. IV dexamethasone 10mg IV given in ER, continue IV 6 mg every 6 hrs, although may want to trial transition to PO tomorrow - Stable today. anticipate home w hospice once home/family ready (?monday) (2) Primary cancer of thyroid with metastasis to other site: Patient was adamant she would not want further radiation. prior hsopitalist discussed whether she would like to discuss any further options with radiation oncology and she refused at this time. anticipate home w hospice (3) Generalized weakness: ?Steroid myopathy, unable to reduce steroids. Patient does not wish to have further radiation therapy. 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 local care (11) Pressure ulcer, heel, left, unstageable: Wound care nurse consult (12) DVT prophylaxis: Continue her usual Eliquis 5mg PO BID Moderate protein-calorie malnutrition (13) Discharge planning issues: anticipte home w hospice in the coming days Admission and Anticipated Discharge Date Admission Date: June 25, 2020 Subjective pain reasonable swallowing liquids well no sob plan for home/hospice monday Review of Systems Review of Systems: All systems reviewed & are unremarkable except as noted in HPI & below Physical Exam Physical Exam: gen aao pleasant nad heent nc at mmm neck w firmness but no stridor or other signs of airway compromise breathing unlabored no accessory muscles good effort skin no rashes no pallor or icterus Results & Data Results & Data ([facility]) Vital Signs (Past 12 Hours) Vital Signs Temp Pulse Pulse Resp BP Pulse Ox 06/27/20 19:09 98.1 F 89 16 132/78 94 06/27/20 16:00 105 H 06/27/20 15:54 152/94 H 06/27/20 15:46 97.9 F 113 H 24 163/100 H 93 06/27/20 11:28 97.9 F 99 H 20 155/95 H 93 06/27/20 11:25 102 H 06/27/20 08:07 97.5 F L 98 H 18 147/96 H 95 PG Care Time/CCT Total # of Minutes Spent Total Time Spent with Patient: Total time spent is greater than 50% in coordination of care (as documented) at patient's floor/unit and/or counseling patient: Coding Level of Care Code 82207 Subseq Hosp Care Lvl 2 Diagnoses Swollen throat R22.1 Primary cancer of thyroid with metastasis to other site C73 Generalized weakness R53.1 AV block, 2nd degree I44.1 Internal jugular vein thrombosis I82.C19 Hypokalemia E87.6 Hyponatremia E87.1 Brachial plexus injury, right S14.3XXA Sacral pressure ulcer L89.159 Cellulitis of sacral region L03.319 Pressure ulcer, heel, left, unstageable L89.620 DVT prophylaxis Z29.9 Discharge planning issues Z02.9
[2020-06-27] MEDS: ATORVASTATIN 10 MG TAB PO SCH (20:10)
--- NOTE | 2020-06-27 22:14 | Hospitalist Progress Note ---
Date of Service June 27, 2020 Assessment & Plan (1) Swollen throat: Possible supraglottic edema/laryngeal edema. Secondary to recent decrease dose of dexamethasone vs worsening cancer. IV dexamethasone 10mg IV given in ER, continue IV 6 mg every 6 hrs, although may want to trial transition to PO tomorrow - Stable today. anticipate home w hospice once home/family ready (?monday) (2) Primary cancer of thyroid with metastasis to other site: Patient was adamant she would not want further radiation. prior hsopitalist discussed whether she would like to discuss any further options with radiation oncology and she refused at this time. anticipate home w hospice (3) Generalized weakness: ?Steroid myopathy, unable to reduce steroids. Patient does not wish to have further radiation therapy. 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 local care (11) Pressure ulcer, heel, left, unstageable: Wound care nurse consult (12) DVT prophylaxis: Continue her usual Eliquis 5mg PO BID Moderate protein-calorie malnutrition (13) Discharge planning issues: anticipte home w hospice in the coming days Admission and Anticipated Discharge Date Admission Date: June 25, 2020 Results & Data Results & Data ([facility]) Vital Signs (Past 12 Hours) Vital Signs Temp Pulse Pulse Resp BP Pulse Ox 06/27/20 19:09 36.7 C 89 16 132/78 94 06/27/20 16:00 105 H 06/27/20 15:54 152/94 H 06/27/20 15:46 36.6 C 113 H 24 163/100 H 93 06/27/20 11:28 36.6 C 99 H 20 155/95 H 93 06/27/20 11:25 102 H PG Care Time/CCT Total # of Minutes Spent Total Time Spent with Patient: Total time spent is greater than 50% in coordination of care (as documented) at patient's floor/unit and/or counseling patient: Coding Diagnoses Swollen throat R22.1 Primary cancer of thyroid with metastasis to other site C73 Generalized weakness R53.1 AV block, 2nd degree I44.1 Internal jugular vein thrombosis I82.C19 Hypokalemia E87.6 Hyponatremia E87.1 Brachial plexus injury, right S14.3XXA Sacral pressure ulcer L89.159 Cellulitis of sacral region L03.319 Pressure ulcer, heel, left, unstageable L89.620 DVT prophylaxis Z29.9 Discharge planning issues Z02.9
[2020-06-27] MEDS: NSS + 20MEQ KCL 20 MEQ/1,000 ML BAG IV SCH (23:00)
[2020-06-28] MEDS: CHECK SCOPOLAMINE PATCH PLACEMENT SCH ×3 (00:19→15:48)
[2020-06-28] MEDS: CHECK FENTANYL PATCH PLACEMENT SCH ×3 (00:20→15:48)
[2020-06-28] MEDS: LEVOTHYROXINE SODIUM 100 MCG TABLET PO SCH (05:39)
[2020-06-28] MEDS: dexAMETHasone 6 MG in SYRINGE 0 ML IV SCH ×4 (05:39→23:14)
[2020-06-28] MEDS: fentaNYL 50 MCG/HR TDSY TD SCH (08:26)
[2020-06-28] MEDS: APIXABAN 5 MG TABLET PO SCH ×2 (08:29→22:05)
[2020-06-28] MEDS: MULTIVITAMIN TAB PO SCH (08:29)
[2020-06-28] MEDS: METOPROLOL SUCC 25MG EXT REL TAB PO SCH (08:30)
[2020-06-28] MEDS: NSS + 20MEQ KCL 20 MEQ/1,000 ML BAG IV SCH ×2 (09:25→19:25)
[2020-06-28] MEDS: ATORVASTATIN 10 MG TAB PO SCH ×2 (21:39→22:04)
[2020-06-28] MEDS ORDERED: CALCIUM CARBONATE 500 MG CHEWABLE TAB PO PRN (22:42)
[2020-06-29] MEDS: CHECK SCOPOLAMINE PATCH PLACEMENT SCH ×3 (00:53→16:31)
[2020-06-29] MEDS: CHECK FENTANYL PATCH PLACEMENT SCH ×3 (00:53→16:31)
[2020-06-29] MEDS: dexAMETHasone 6 MG in SYRINGE 0 ML IV SCH ×3 (04:46→17:45)
[2020-06-29] MEDS: NSS + 20MEQ KCL 20 MEQ/1,000 ML BAG IV SCH ×2 (05:00→05:25)
[2020-06-29] MEDS: LEVOTHYROXINE SODIUM 100 MCG TABLET PO SCH (05:15)
[2020-06-29] MEDS: METOPROLOL SUCC 25MG EXT REL TAB PO SCH (07:56)
[2020-06-29] MEDS: MULTIVITAMIN TAB PO SCH (07:57)
[2020-06-29] MEDS: APIXABAN 5 MG TABLET PO SCH (07:57)
[2020-06-29] MEDS: ASPIRIN 81 MG ECTAB PO SCH (07:57)
[2020-06-29] MEDS ORDERED: ONDANSETRON 4 MG OD TAB SL PRN (10:05)
[2020-06-29] MEDS ORDERED: LORazepam 0.5 MG/1 ML VIAL IV PRN (10:05)
[2020-06-29] MEDS ORDERED: LORazepam 0.5 MG TAB PO PRN (10:05)
[2020-06-29] MEDS ORDERED: ONDANSETRON INJ 2 MG/ML 2 ML VIAL IV PRN (10:05)
--- NOTE | 2020-06-29 10:06 | Palliative Care Progress Note ---
Date of Service June 29, 2020 Assessment & Plan (1) Goals of care, counseling/discussion: This patient is a 75 year old female who presented to the [facility] with increased SOB, worsening neck swelling and congestion. Patient was diagnosed with metastatic anaplastic thyroid cancer in 1991, but was in remission for years. Re-currance of the cancer was in 2005. She is a patient of Dr. 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 She has noticed a marked decline with her neck swelling and weakness. She has made the decision she no longer wants to pursue and options regarding radiation or chemotherapy. Palliative Care was consulted to discuss goals of care. -I met with the patient in room 260. Her , Juan, was at her bedside. -Patient had a marked decline over the last 48 hours. -The patient is tachycadic, tachypnic, and having some hallucinations/terminal agitation. -The patient was able to communicate with me but has significant increased lethargy. -Plan initially for today was to return home with [facility]; however, this has been cancelled due to her decline. -After full discussion with her , we will make a full transition to [employer] here and monitor her progression, but it appears she is entering the active dying phase. -We D/C all medications that do not focus on comfort, D/C all lab draws, and VS monitoring. -I ordered Morphine 2 mg IV Q1 PRN for SOB and pain, along with Robinul 0.2 mg IV Q2 PRN. -I stated that if the patient would stabilize over the next 48 hours, we can re- look at returning home with Hospice, but I anticipate she will pass here. -PPS: 10%. Likely patient has days of life expectancy. -Palliative will follow and provide support to family. -All of the above communicated to family, and all parties of IDT. (2) Primary cancer of thyroid with metastasis to other site: (3) Swollen throat: (4) Sacral pressure ulcer: Admission and Anticipated Discharge Date Admission Date: June 25, 2020 Physical Exam Constitutional: well developed, healthy appearing, cooperative and comfortable Neck: + anterior neck swelling, + submandibular swelling and + neck tender Thyroid: + thyroid asymmetrical, + thyroid mass and + thyroid tender Respiratory: normal respiratory effort, lungs clear to auscultation Cardiovascular: RRR, no murmur, no edema Gastrointestinal (Abdomen): normal bowel sounds, soft, nontender, no hepatosplenomegaly Skin: no rashes, warm and dry Psychiatric: A+Ox3, euthymic affect Lymphatic: + cervical lymphadenopathy Results & Data ([facility]) Vital Signs (Past 12 Hours) Vital Signs Temp Pulse Pulse Resp BP Pulse Ox 06/29/20 07:52 36.5 C 114 H 20 154/100 H 90 06/29/20 02:46 36.7 C 107 H 20 136/74 92 06/29/20 01:27 101 H 06/28/20 22:14 36.6 C 109 H 20 157/92 H 90 PG Care Time/CCT Total # of Minutes Spent Total Time Spent with Patient: Total time spent is greater than 50% in coordination of care (as documented) at patient's floor/unit and/or counseling patient: 65 Coding Level of Care Code 67119 Subseq Hosp Care Lvl 3 Diagnoses Goals of care, counseling/discussion Z71.89 Primary cancer of thyroid with metastasis to other site C73 Swollen throat R22.1 Sacral pressure ulcer L89.159 Time Spent (min) 65 Time Spent Midlevel Total time spent 65 minutes with > 50% of that time spent assessing the patient, discussing end of life issues and symptom management with pt , case management, nursing and rest of the IDT
[2020-06-29] MEDS ORDERED: GLYCOPYRROLATE 0.2 MG/ML VIAL IV PRN (10:07)
[2020-06-29] MEDS: MoRPHine SULFATE 2 MG/ML CARP IV PRN ×3 (11:03→23:16)
--- NOTE | 2020-06-29 21:27 | Hospitalist Progress Note ---
Date of Service June 29, 2020 Assessment & Plan (1) Swollen throat: Patient is overall declining. Will place on comfort measures. comfort meds ordered, will stop any other medications. will moniotor over course of next 48 hours. 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 prior hsopitalist discussed whether she would like to discuss any further options with radiation oncology and she refused at this time. 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 Patient does not wish to have further radiation therapy. 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 local care (11) Pressure ulcer, heel, left, unstageable: Wound care nurse consult (12) DVT prophylaxis: Continue her usual Eliquis 5mg PO BID Moderate protein-calorie malnutrition (13) Discharge planning issues: anticipte home w hospice in the coming days Admission and Anticipated Discharge Date Admission Date: June 25, 2020 Subjective Patient is lying in bed comfortably. She is surrounded by family. Review of Systems Review of Systems: All systems reviewed & are unremarkable except as noted in HPI & below Physical Exam Physical Exam: Resting in bed. NAD PG Care Time/CCT Total # of Minutes Spent Total Time Spent with Patient: Total time spent is greater than 50% in coordination of care (as documented) at patient's floor/unit and/or counseling patient: Coding Level of Care Code 46302 Subseq Hosp Care Lvl 1 Diagnoses Swollen throat R22.1 Primary cancer of thyroid with metastasis to other site C73 Generalized weakness R53.1 AV block, 2nd degree I44.1 Internal jugular vein thrombosis I82.C19 Hypokalemia E87.6 Hyponatremia E87.1 Brachial plexus injury, right S14.3XXA Sacral pressure ulcer L89.159 Cellulitis of sacral region L03.319 Pressure ulcer, heel, left, unstageable L89.620 DVT prophylaxis Z29.9 Discharge planning issues Z02.9
[2020-06-29] MEDS: ATROPINE SULFATE 1% OP SOLN 2 ML BTL SL PRN ×2 (22:05→23:16)
[2020-06-30] MEDS: CHECK SCOPOLAMINE PATCH PLACEMENT SCH ×5 (00:11→15:07)
[2020-06-30] MEDS: CHECK FENTANYL PATCH PLACEMENT SCH ×3 (00:11→15:07)
[2020-06-30] MEDS: dexAMETHasone 6 MG in SYRINGE 0 ML IV SCH ×4 (00:12→17:14)
[2020-06-30] MEDS: MoRPHine SULFATE 2 MG/ML CARP IV PRN ×10 (00:12→12:25)
[2020-06-30] MEDS: ATROPINE SULFATE 1% OP SOLN 2 ML BTL SL PRN ×7 (00:13→15:53)
[2020-06-30] MEDS ORDERED: SCOPOLAMINE 1.5 MG TDSY TD SCH (02:15)
[2020-06-30] MEDS ORDERED: NALOXONE HCL 0.4 MG/1 ML VIAL/CARP IV PRN (12:29)
[2020-06-30] MEDS: MoRPHine SULF/NSS 250 MG/250 ML BTL IV PRN (13:00)
[2020-06-30] MEDS: SODIUM CHLORIDE 0.9% 1000ML 1,000 ML IV SCH (13:00)
--- NOTE | 2020-06-30 13:03 | Palliative Care Progress Note ---
Date of Service June 30, 2020 Assessment & Plan (1) Goals of care, counseling/discussion: This patient is a 75 year old female who presented to the [facility] with increased SOB, worsening neck swelling and congestion. Patient was diagnosed with metastatic anaplastic thyroid cancer in 1991, but was in remission for years. Re-currance of the cancer was in 2005. She is a patient of Dr. 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 She has noticed a marked decline with her neck swelling and weakness. She has made the decision she no longer wants to pursue and options regarding radiation or chemotherapy. Palliative Care was consulted to discuss goals of care. -Met with patient in room 260. Pt Juan and multiple family members at bedside. -Pt with increased labored breathing. -Pt unresponsive and obtunded -Pt was requiring Morphine IV Q 1.5-2 hours, pt was started on a Morphine gtt at 0.5 mg/hour. Indicated to increase dose to 2 mg per hour and monitor for symptoms of breathing changes. -Pt is tachycardic and having jayesh-donald respirations. Some agonal breathing reported by family with some apnea. -Pt with audible secretions, encouraged Robinul administration. -PPS: 10%. Likely patient has hours of life expectancy. -Palliative will follow and provide support to family. -All of the above communicated to family, and all parties of IDT. (2) Primary cancer of thyroid with metastasis to other site: (3) Swollen throat: (4) Sacral pressure ulcer: Admission and Anticipated Discharge Date Admission Date: June 25, 2020 Subjective Pt with increased labored breathing. Pt unresponsive Pt was requiring Morphine IV Q 1.5-2 hours Pt with audible secretions See A/P for further details. Review of Systems Review of Systems: Unobtainable due to reduced consciousness Physical Exam Constitutional: + acute distress and + ill appearing Neck: + anterior neck swelling, + submandibular swelling and + neck tender Thyroid: + thyroid asymmetrical, + thyroid mass and + thyroid tender Respiratory: normal respiratory effort, lungs clear to auscultation Cardiovascular: Rate/Rhythm: + tachycardic Heart Sounds: normal S1 and normal S2 Extremities: normal capillary refill Gastrointestinal (Abdomen): normal bowel sounds, soft, nontender, no hepatosplenomegaly Skin: no rashes, warm and dry Psychiatric: Orientation: + not alert, + not oriented x 3, + not oriented to place and + not oriented to time Lymphatic: + cervical lymphadenopathy Supervising Physician Co-Signing Physician Notes Late entry for visit dated 06/30 Met with family at bedside-patient appears comfortable. Discussed end-of-life issues at length with family PE: Patient unresponsive to voice or touch HEENT: Neck hyperextended, mild excess oral secretions Respirations: Unlabored, on O2 via nasal cannula CV: Tachycardic Extremities: Warm to touch, no mottling Agree with above note, assessment and plan as per GERI Robison PG Care Time/CCT Total # of Minutes Spent Total Time Spent with Patient: Total time spent is greater than 50% in coordination of care (as documented) at patient's floor/unit and/or counseling patient: 45 Prolonged Care Time Prolonged Care Time: Yes Total Prolonged Care Time: 40 Coding Level of Care Code 49585 Subseq Hosp Care Lvl 3 Diagnoses Goals of care, counseling/discussion Z71.89 Primary cancer of thyroid with metastasis to other site C73 Swollen throat R22.1 Sacral pressure ulcer L89.159 Additional Codes Prolonged Care Time - Prolonged Care Time: Yes ([id number]) Time Spent (min) 75 Time Spent Midlevel Total time spent 45 minutes with > 50% of that time spent assessing the patient, symptom management and discussing with IDT Attending Spent 30 minutes in addition to the 45 minutes spent by GERI for total of 75 minutes with greater than 50% of time spent at bedside assessing patient's level of comfort as well as providing support to family and discussing end-of-life issues at length. Critical Care Time Prolonged Care Time Prolonged Care Time: Yes Total Prolonged Care Time: 40 77
[2020-06-30] MEDS ORDERED: Nursing to Pharmacy Communication SCH (13:30)
--- NOTE | 2020-06-30 23:15 | Hospitalist Progress Note ---
Date of Service June 30, 2020 Assessment & Plan (1) Swollen throat: now on comfort measures. comfort meds ordered, will stop any other medications. will monitor over course of next 48 hours. 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 prior hsopitalist discussed whether she would like to discuss any further options with radiation oncology and she refused at this time. 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 Patient does not wish to have further radiation therapy. 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 local care (11) Pressure ulcer, heel, left, unstageable: Wound care nurse consult (12) DVT prophylaxis: Continue her usual Eliquis 5mg PO BID Moderate protein-calorie malnutrition (13) Discharge planning issues: anticipte home w hospice in the coming days Admission and Anticipated Discharge Date Admission Date: June 25, 2020 Subjective Patient appears to be resting comfortably. Review of Systems Review of Systems: Unobtainable due to cognitive status Physical Exam Physical Exam: resting in bed. 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
[2020-07-01] MEDS: CHECK SCOPOLAMINE PATCH PLACEMENT SCH ×6 (00:54→16:03)
[2020-07-01] MEDS: dexAMETHasone 6 MG in SYRINGE 0 ML IV SCH ×3 (00:57→12:07)
[2020-07-01] MEDS: CHECK FENTANYL PATCH PLACEMENT SCH ×3 (00:57→16:03)
[2020-07-01] MEDS: fentaNYL 50 MCG/HR TDSY TD SCH (08:14)
[2020-07-01] MEDS: ATROPINE SULFATE 1% OP SOLN 2 ML BTL SL PRN (08:20)
[2020-07-01] MEDS: SODIUM CHLORIDE 0.9% 1000ML 1,000 ML IV SCH (13:32)
[2020-07-01] MEDS: MoRPHine SULF/NSS 250 MG/250 ML BTL IV PRN (16:04)
--- NOTE | 2020-07-08 00:17 | Discharge Summary ---
Date of Service July 01, 2020 Admission HPI Per Admitting Provider Keren Wood is a 75-year-old female with PMHx of recurrent metastatic anaplastic thyroid cancer, prior tracheostomy, internal jugular vein thrombosis who presents to the ER with shortness of breath, increased neck swelling and congestion. Patient was initially diagnosed in 1991 and was in remission for a long time. This recurred in 2005 with a tumor. She follows with Dr. Preethi Abreu. oncologist at [facility] [place]. After her most recent admission here at the end of May she followed up with her oncologist and the patient and her note they are stopping the treatment for her cancer. Her current symptoms are very similar to her presentation on her last admission when she did well with IV Decadron. She has become increasingly more weak and there was some concern from her oncologist regarding steroid-induced myopathy and her Decadron was reduced from 4mg PO BID to daily for the last week. Since this time she has noticed slowly worsening neck swelling. Her notes at this time she has become so weak he is unable to take care of her at home in her current state. Principal Diagnosis primary cancer of thyroid Discharge Exam refer to summary. Discharge Data Allergies Allergy/AdvReac Type Severity Reaction Status Date / Time penicillin G Allergy Unknown . Verified 06/25/20 09:09 Consultations 06/25/20 10:46 ED Decision to Admit Stat 06/25/20 15:54 Consult Palliative Care Routine 06/26/20 06:41 Consult Health Information Management Routine 06/29/20 10:05 Consult Case Management - Discharge Planning Routine Consult Palliative Care Routine Ordered Studies 06/25/20 08:33 CT soft tissue neck wo con Stat Hospital Course (1) Swollen throat: now on comfort measures. comfort meds ordered, will stop any other medications. 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 prior hsopitalist discussed whether she would like to discuss any further options with radiation oncology and she refused at this time. 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 Patient does not wish to have further radiation therapy. 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
--- NOTE | 2020-07-08 00:20 | Death Pronouncement Note ---
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: (2) Swollen throat: (3) Generalized weakness: (4) AV block, 2nd degree: (5) Internal jugular vein thrombosis: (6) Hypokalemia: (7) Hyponatremia: (8) Brachial plexus injury, right: (9) Sacral pressure ulcer: (10) Cellulitis of sacral region: (11) Pressure ulcer, heel, left, unstageable: (12) DVT prophylaxis: (13) Discharge planning issues: Summary Additional details: as noted in discharge summary Additional Data Confirmation of : no pulse, no respirations, no heart sounds and pupils fixed and dilated Family: at bedside Attending/PCP notified?: Yes Attending physician: Jaylen Coffman Was code activated?: No Autopsy requested?: No range examiner notified?: No Organ bank notified?: Yes Advance directives: Yes
== END 2020-07-01 20:15 | disposition expired | DRG 155 ==
LOC: ED 08:12 → SUATTDRO 13:21 → 2W 13:21
DX: Z66 Do not resuscitate; S14.3XXA Injury of brachial plexus, initial encounter; L89.620 Pressure ulcer of left heel, unstageable; X58.XXXA Exposure to other specified factors, initial encounter; Z79.82 Long term (current) use of aspirin; L89.159 Pressure ulcer of sacral region, unspecified stage; E44.0 Moderate protein-calorie malnutrition; Z93.0 Tracheostomy status; G72.0 Drug-induced myopathy; E87.1 Hypo-osmolality and hyponatremia; J38.4 Edema of larynx; E87.6 Hypokalemia; Z51.5 Encounter for palliative care; I44.1 Atrioventricular block, second degree; C73 Malignant neoplasm of thyroid gland; I82.C19 Acute embolism and thrombosis of unspecified internal jugular vein; C79.9 Secondary malignant neoplasm of unspecified site